=== PATIENT | male | born 1935 | race Caucasian/White ===

== ENCOUNTER → 2016-06-08 | Outpatient (CLI) | payer OTHER ==
[~2016-06-08] MED LIST: ALPR-411 PO; BIO FLEX PO; LISI-461 PO; MRLP17 PO; NAPR1TAB9 PO; PRLSR20 PO
[2016-06-08 09:50] LABS: BASO % 0.5 %; BASO ABS # 0.03 K/uL (0-0.2); COMPLETE YES; EOS % 2.4 %; HEMATOCRIT 43.1 % (42-52); IG% 0.5 %; LYMPH % 23.6 %; LYMPH ABS # 1.47 K/uL (1.2-3.4); MEAN CELL VOLUME 94.5 fL (80-100); MEAN CORPUSCULAR HEMOGLOBIN 32.7 pg (25-34); MEAN CORPUSCULAR HGB CONC 34.6 g/dl (32-36); MEAN PLATELET VOLUME 9.8 fL (7.4-10.4); MONO % 10.6 %; NEUT % 62.4 %; PLATELET COUNT 240 K/uL (130-400); RED BLOOD COUNT 4.56 M/uL (4.7-6.1); WHITE BLOOD COUNT 6.22 K/uL (4.8-10.8)
[2016-06-08 10:03] LABS: ALT/SGPT 16 U/L (12-78); BLOOD UREA NITROGEN 28 mg/dl (7-18); BUN/CREATININE RATIO 25.5 (10-20); CALCIUM 8.9 mg/dl (8.5-10.1); CARBON DIOXIDE 29 mmol/L (21-32); CHLORIDE 101 mmol/L (98-107); CHOLESTEROL 172 mg/dl (0-200); CHOLESTEROL/HDL RATIO 2.5; GLUCOSE 96 mg/dl (70-99); HDL CHOLESTEROL 70 mg/dl; LDL CHOLESTEROL CALCULATED 88 mg/dl; SODIUM 138 mmol/L (136-145); TRIGLYCERIDES 72 mg/dl (0-150); URIC ACID 6.2 mg/dl (2.6-7.2); VERY LOW DENSITY LIPOPROT CALC 14 mg/dl
[2016-06-08 10:09] LABS: ALB/GLOB RATIO 1.3 (0.9-2); ALKALINE PHOSPHATASE 67 U/L (45-117); AST/SGOT 20 U/L (15-37); PHOSPHORUS 2.7 mg/dl (2.5-4.9)
[2016-06-08 10:33] LABS: ESTIMATED AVERAGE GLUCOSE 103 mg/dl; HA1C FLAG Normal (Normal)
[2016-06-09 11:58] LABS: C-REACTIVE PROT HIGHSEN 2.2 MG/L
--- NOTE | 2016-06-14 13:10 | CODING QUERY MEDICAL NECESSITY ---
SUPPORTING DIAGNOSIS NEEDED A supporting diagnosis is required for the test/procedure performed on this patient in order for us to be reimbursed by the patient's insurance. Please provide a supporting diagnosis for the following test/procedure listed below next to the test name along with your signature. *If there is no additional diagnosis for this patient that would support the following test/procedure please document that below next to the test/procedure. Test(s)/Procedure(s) that require a supporting diagnosis: * VITAMIN D 25- HYDROXY DIAGNOSIS: * VITAMIN B-12 LEVEL DIAGNOSIS: * C-REACTIVE PROTEIN DIAGNOSIS: * DOS:06/08/13 Provider Signature: Date: Thank you Frances Gama Health Information Management Once completed, please kindly fax back to [phone] For questions please call [phone]
== END | disposition home or self-care (01) ==
LOC: C.LAB 07:10
PROVIDERS: ATTEND Family Medicine
DX: R73.09 Other abnormal glucose (principal)

== ENCOUNTER → 2016-12-06 | Outpatient (CLI) | payer OTHER ==
[2016-12-06 09:35] LABS: BASO % 0.5 %; BASO ABS # 0.04 K/uL (0-0.2); COMPLETE YES; HEMATOCRIT 43.8 % (42-52); IG% 0.7 %; LYMPH % 16.5 %; LYMPH ABS # 1.24 K/uL (1.2-3.4); MEAN CELL VOLUME 97.3 fL (80-100); MEAN CORPUSCULAR HEMOGLOBIN 31.3 pg (25-34); MEAN CORPUSCULAR HGB CONC 32.2 g/dl (32-36); MEAN PLATELET VOLUME 9.6 fL (7.4-10.4); MONO % 11.6 %; NEUT % 68.7 %; PLATELET COUNT 277 K/uL (130-400); WHITE BLOOD COUNT 7.52 K/uL (4.8-10.8)
[2016-12-06 09:56] LABS: ALKALINE PHOSPHATASE 61 U/L (45-117); ALT/SGPT 14 U/L (12-78); AST/SGOT 15 U/L (15-37); BLOOD UREA NITROGEN 27 mg/dl (7-18); BUN/CREATININE RATIO 27.1 (10-20); CALCIUM 9.1 mg/dl (8.5-10.1); CARBON DIOXIDE 26 mmol/L (21-32); CHLORIDE 101 mmol/L (98-107); CHOLESTEROL 219 mg/dl (0-200); GLUCOSE 97 mg/dl (70-99); POTASSIUM 4.2 mmol/L (3.5-5.1); SODIUM 135 mmol/L (136-145)
[2016-12-06 09:58] LABS: ESTIMATED AVERAGE GLUCOSE 108 mg/dl; HA1C FLAG Normal (Normal)
[2016-12-06 10:02] LABS: ALB/GLOB RATIO 1.3 (0.9-2); CHOLESTEROL/HDL RATIO 2.1; HDL CHOLESTEROL 106 mg/dl; LDL CHOLESTEROL CALCULATED 95 mg/dl; PHOSPHORUS 2.6 mg/dl (2.5-4.9); THYROID STIMULATING HORMONE 0.755 uIu/ml (0.300-4.500); TRIGLYCERIDES 91 mg/dl (0-150); URIC ACID 6.9 mg/dl (2.6-7.2); VERY LOW DENSITY LIPOPROT CALC 18 mg/dl
[2016-12-07 12:32] LABS: C-REACTIVE PROT HIGHSEN 9.6 MG/L
--- NOTE | 2016-12-12 06:42 | CODING QUERY MEDICAL NECESSITY ---
SUPPORTING DIAGNOSIS NEEDED Dr. Feliciano, A supporting diagnosis is required for the test/procedure performed on this patient in order for us to be reimbursed by the patient's insurance. Please provide a supporting diagnosis for the following test/procedure listed below next to the test name along with your signature. *If there is no additional diagnosis for this patient that would support the following test/procedure please document that below next to the test/procedure. Test(s)/Procedure(s) that require a supporting diagnosis: * ([id number]) C-REACTIVE PROTEIN DIAGNOSIS: * [id number] PSA DIAGNOSIS: DATE OF SERVICE: 12/06/16 Provider Signature: Date: Thank you Kirill Wharton Health Information Management Once completed, please kindly fax back to [phone] For questions please call [phone]
== END | disposition home or self-care (01) ==
LOC: C.LAB 07:42
PROVIDERS: ATTEND Family Medicine
DX: R73.09 Other abnormal glucose (principal); E55.9 Vitamin D deficiency, unspecified; D51.9 Vitamin B12 deficiency anemia, unspecified

== ENCOUNTER → 2017-05-18 | Outpatient (CLI) | payer OTHER ==
[2017-05-18 09:35] LABS: BASO % 0.6 %; BASO ABS # 0.03 K/uL (0-0.2); EOS % 1.5 %; EOS ABS # 0.08 K/uL (0-0.5); HEMATOCRIT 44.6 % (42-52); HEMOGLOBIN 15.1 g/dL (14.0-18.0); IG# 0.03 K/uL (0.00-0.02); LYMPH ABS # 1.34 K/uL (1.2-3.4); MEAN CELL VOLUME 93.7 fL (80-100); MEAN CORPUSCULAR HEMOGLOBIN 31.7 pg (25-34); MEAN CORPUSCULAR HGB CONC 33.9 g/dl (32-36); MONO % 10.8 %; MONO ABS # 0.58 K/uL (0.11-0.59); NEUT % 61.5 %; NEUT ABS # 3.31 K/uL (1.4-6.5); PLATELET COUNT 259 K/uL (130-400); RED CELL DISTRIBUTION WIDTH CV 12.5 % (11.5-14.5); RED CELL DISTRIBUTION WIDTH SD 43.6 fL (36.4-46.3); WHITE BLOOD COUNT 5.37 K/uL (4.8-10.8)
[2017-05-18 09:53] LABS: ALBUMIN 4.1 gm/dl (3.4-5.0); ALT/SGPT 22 U/L (12-78); AST/SGOT 26 U/L (15-37); BLOOD UREA NITROGEN 18 mg/dl (7-18); CALCIUM 9.2 mg/dl (8.5-10.1); CARBON DIOXIDE 30 mmol/L (21-32); CHOLESTEROL 177 mg/dl (0-200); CREATININE 1.04 mg/dl (0.60-1.40); GLUCOSE 92 mg/dl (70-99); SODIUM 135 mmol/L (136-145); URIC ACID 5.7 mg/dl (2.6-7.2)
[2017-05-18 10:02] LABS: ALKALINE PHOSPHATASE 69 U/L (45-117); LDL CHOLESTEROL CALCULATED 83 mg/dl; TOTAL PROTEIN 7.1 gm/dl (6.4-8.2); TRANSFERRIN 230 mg/dl (200-360)
[2017-05-18 10:17] LABS: HEMOGLOBIN A1C 5.3 % (4.5-5.6)
== END | disposition home or self-care (01) ==
LOC: C.LAB 07:31
PROVIDERS: ATTEND Family Medicine
DX: E88.81 Metabolic syndrome and other insulin resistance (principal); E55.9 Vitamin D deficiency, unspecified; D51.9 Vitamin B12 deficiency anemia, unspecified; E78.9 Disorder of lipoprotein metabolism, unspecified; R53.83 Other fatigue

== ENCOUNTER 2018-06-07 17:52 | Inpatient (IN) ==
[2018-06-07] MEDS ORDERED: ASPIRIN CHEW 324 MG PO STA (18:17)
[2018-06-07] MEDS ORDERED: ACETAMINOPHEN 500 MG TAB PO STA (18:26)
[2018-06-07] MEDS ORDERED: SODIUM CHLORIDE 0.9% 1000ML 1,000 ML IV SCH (18:30)
[2018-06-07] MEDS ORDERED: SODIUM CHLORIDE 0.9% 500 ML IV SCH (18:30)
--- NOTE | 2018-06-07 18:55 | XRay Report ---
XR chest 1V portable HISTORY: 83 years-old Male CVA sx acute weakness with strokelike symptoms COMPARISON: Thoracic spine radiographs of same day TECHNIQUE: Single portable AP view the chest FINDINGS: Cardiac silhouette is mildly enlarged. Mild prominence about the thoracic aortic arch. Calcified medi astinal lymph nodes with calcified granuloma of the right lung base. No pneumothorax, pleural effusio n or overt pulmonary edema. Minimal left basilar opacities suggest atelectasis. Degenerative changes of the shoulders and spine. IMPRESSION: No acute process. The above report was generated using voice recognition software. It may contain grammatical, syntax o r spelling errors. Electronically signed by: Chip Irizarry M.D. 06/07/2018 6:54 PM
[2018-06-07 19:41] LABS: Basophils # (auto) 0.03 K/uL (0-0.2); Basophils % (auto) 0.4 %; Eosinophils # (auto) 0.07 K/uL (0-0.5); Hematocrit (blood only) 40.8 % (42-52); Hemoglobin 14.1 g/dL (14.0-18.0); Immature Granulocytes # (auto) 0.04 K/uL (0.00-0.02); Immature Granulocytes % (auto) 0.6 %; Lymphocytes # (auto) 1.23 K/uL (1.2-3.4); Mean Corpuscular Hgb Conc 34.6 g/dL (32-36); Mean Corpuscular Volume 95.3 fL (80-100); Mean Platelet Volume 9.9 fL (7.4-10.4); Monocytes # (auto) 0.93 K/uL (0.11-0.59); Monocytes % (auto) 12.8 %; Neutrophils # (auto) 4.94 K/uL (1.4-6.5); Neutrophils % (auto) 68.2 %; Platelet Count 244 K/uL (130-400); RDW Coefficient of Variation 12.4 % (11.5-14.5); Red Blood Count 4.28 M/uL (4.7-6.1); White Blood Count 7.24 K/uL (4.8-10.8)
[2018-06-07 19:52] LABS: Alanine Aminotransferase 14 U/L (12-78); Albumin Level 3.9 gm/dl (3.4-5.0); Aspartate Aminotransferase 19 U/L (15-37); BUN Creatinine Ratio 25.4 (10-20); Blood Urea Nitrogen 36 mg/dl (7-18); Calcium 9.3 mg/dl (8.5-10.1); Carbon Dioxide 30 mmol/L (21-32); Chloride 100 mmol/L (98-107); Est GFR (African American) 52.1; Glucose 113 mg/dl (70-99); Potassium 3.9 mmol/L (3.5-5.1); Sodium 134 mmol/L (136-145)
[2018-06-07 19:56] LABS: Albumin Globulin Ratio 1.4 (0.9-2); Alkaline Phosphatase 58 U/L (45-117); Bilirubin,Total 1.1 mg/dl (0.2-1); Globulin 2.8 gm/dl (2.5-4.0); Total Protein 6.7 gm/dl (6.4-8.2); Troponin I 0.025 ng/ml (0-0.045)
--- NOTE | 2018-06-07 22:00 | History & Physical Report ---
Date of Service June 07, 2018 Assessment & Plan (1) Cerebrovascular accident: 83 y/o M without a significant medical history who is undergoing a workup for ataxia. The pt states that he is having difficulty initiating speech and movement. He denies a significant tremor or noticeable unilateral weakness. He also states that he is occasionally lightheaded. He suffered a fall into a snow bank approximately one week ago after becoming lightheaded walking toward his house. The pt was placed on Sinemet for a presumed diagnosis of Parkinson's initially but he had an adverse reaction to the medication, describing involuntary movements and GI upset. He was sent for an MRI as part of a n eurological workup. This demonstrated an acute lacunar infarct in the basal ganglia. The pt was directed to the ER for admission. Initial exam demonstrated subtle L sided weakness which the pt did not discern as a symptom. Ataxia is apparent. The pt was hypotensive on arrival to the ER with an SBP in the low 90s. He responded to IVF. He had c/o a headache, however, this resolved after he received ASA. Initial labs are notable for mild YANN. CVA and ataxia - hypotension on arrival to the ER This is an unusual case considering a diagnosis of an acute CVA and ataxia which preceded this diagnosis for at least a few weeks. The pt was hypotensive on arrival which is also unexpected in the setting of an acute CVA. We could possibly tie the two diagnoses together by considering a degree of underlying vascular disease and hypotension being a precipitating factor in causing the CVA. It would be an unfortunate coincidence that the CVA has affected the basal ganglia. The hypotension and ataxia may support an underlying diagnosis of MSA or idiopathic Parkinson's. Considering an adverse response to Sinemet, MSA becomes more likely. A CVA in itself would not explain possible automomic issues, although there is the possibility that the CVA is not as acute as it may appear. In the immediate term, we have ordered an MRA of the head/neck, provided the pt with ASA, a statin and IVF. He is admitted with a CVA protocol and will be evaluated by neurology. He will likely need placement at least in short-term rehab. PT/OT eval requested. Imaging may not be helpful in the diagnosis of MSA. Full code - SCDs due to significant fall risk Total time for this admit including review of labs, meds, imaging, records - discussion with pt, family and ER attending - 48 min Present on Admission?: Yes History of Present Illness Chief Complaint: Ataxia Primary Care Provider: Nithin Feliciano 83 y/o M without a significant medical history who is undergoing a workup for ataxia. The pt states that he is having difficulty initiating speech and movement. He denies a significant tremor or noticeable unilateral weakness. He also states that he is occasionally lightheaded. He suffered a fall into a snow bank approximately one week ago after becoming lightheaded walking toward his house. The pt was placed on Sinemet for a presumed diagnosis of Parkinson's initially but he had an adverse reaction to the medication, describing involuntary movements and GI upset. He was sent for an MRI as part of a neurological workup. This demonstrated an acute lacunar infarct in the basal ganglia. The pt was directed to the ER for admission. Initial exam demonstrated subtle L sided weakness which the pt did not discern as a symptom. Ataxia is apparent. The pt was hypotensive on arrival to the ER with an SBP in the low 90s. He responded to IVF. He had c/o a headache, however, this resolved after he received ASA. Initial labs are notable for mild YANN. PMH: Denies a significant medical history Social: He smoked cigarettes in the 1970s. He has three bourbon-based beverages per evening. He lives alone and is fully independent although he is having difficulty since the onset of his symptoms. Family: Mother at age 70 due to an [place] Father in an MVA Allergies Allergy/AdvReac Type Severity Reaction Status Date / Time codeine AdvReac NAUSEA Verified 06/07/18 15:22 Home Medications Home Medications Medication Instructions Recorded Confirmed Type ergocalciferol (vitamin D2) 50,000 units PO WK 06/07/18 06/07/18 History [Vitamin D2] omeprazole 20 mg PO HS 06/07/18 06/07/18 History vitamins A,C,B-[id number]-fyvkjp 1 tab PO WK 06/07/18 06/07/18 History [PreserVision AREDS] Past Med/Surg History Medical History Anxiety Constipation GERD (gastroesophageal reflux disease) Hypertension Social History Feels Safe at Home: Yes Smoking Status: Never smoker Review of Systems Gen: Denies fevers, night sweats, rigors, fatigue, malaise, weight loss/gain ENT: Denies congestion, throat pain, hearing loss Eyes: Denies acute visual changes CV: Denies CP, palpitations Pulmonary: Denies SOB, cough, wheezing GI: Denies N/V, diarrhea, constipation Neuro: Mild OROZCO resolved - progressive difficulty initiating speech and movement Musculoskeletal: Denies joint pain, inflammation Endocrine: Denies polydipsia, polyuria Skin: Denies acute rashes or ulcers Physical Exam Vital Signs (Past 24 Hours): Last Vital Signs Temp 36.6 C 06/07/18 18:00 Pulse 82 06/07/18 18:00 Resp 20 06/07/18 18:00 BP 90/56 L 06/07/18 18:00 Pulse Ox 94 06/07/18 18:00 Physical Exam: General: Pleasant, elderly male with readily apparent ataxia, AAO x 3, no distress ENT: No erythema or exudates, no thrush Eyes: BRITT, EOMI Head and neck: Normocephalic, atraumatic, No JVD, neck is supple. 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 The weakness is also apparent in the LLE. Coordination shows subtle impairment on the L. Sensation is intact BL. Musculoskeletal: No joint inflammation, muscle tenderness, FROM Skin: No acute rashes or ulcers Extremities: No clubbing, cyanosis, edema Results & Data Diagnostic Findings MRI brain: 1. Acute lacunar infarct within the right basal ganglia. 2. The distal left vertebral artery appears occluded. This is technically age- indeterminate but likely chronic. No associated posterior circulation infarcts to suggest an acute occlusion. 3. Moderate atrophy which has slightly progressed. EKG: Sinus, PVCs, L axis, RBBB (1) Cerebrovascular accident CVA mechanism: unspecified Qualified Code(s): I63.9 - Cerebral infarction, unspecified
[2018-06-07] MEDS ORDERED: ALUMINUM/MAGNESIUM SUSP 30 ML UDC PO PRN (22:03)
[2018-06-07] MEDS ORDERED: ONDANSETRON INJ 2 MG/ML 2 ML VIAL IV PRN (22:03)
[2018-06-07] MEDS ORDERED: MAGNESIUM HYDROXIDE SUSP 30 ML UDC PO PRN (22:03)
[2018-06-07] MEDS ORDERED: POLYETHYLENE (MIRALAX) 17 GM PACK PO PRN (22:03)
[2018-06-07] MEDS ORDERED: PHARMACIST DISCHARGE MED REC CONSULT PRN (22:03)
[2018-06-07] MEDS ORDERED: ATIVAN 1MG HOMEPACK PO ONE (22:10)
[2018-06-08] MEDS ORDERED: D5NSS + 20MEQ KCL 20 MEQ/1,000 ML BAG IV SCH (01:00)
--- NOTE | 2018-06-08 02:41 | Emergency Department Note ---
Entered by Pavan Jacobo acting as a scribe for History of Present Illness General Chief complaint: Stroke/CVA Symptoms Stated complaint: stroke w/ parkinson's symptoms Source: patient and family History of Present Illness Provider complaint: Difficulty moving extremities Onset (ago): week(s) 3 Location: upper extremity, lower extremity, left and right Maximum Pain Intensity: 0 Exacerbated By: + other (dizziness is worsened when getting up) Associated symptoms: + denies other symptoms (ifficulty with speech, weakness specific to one extremity, dark stools/blood, fever, and diarrhea) and + other (lightheaded/dizziness, Parkinson's-like symptoms,intense fatigue, pain in his lower extremities, constipation, blurry vision) Treatments prior to arrival: none The patient is an 83 year old male who presents to the Emergency Room with complaints of difficulty moving his extremities beginning approximately 3 years ago. The patient presents today coming from his doctor who diagnosed him with an acute stroke. Per the patient's family, who was bedside, the patient fell 3 weeks ago was down for about 30 min before EMS got to him. Since then, the patient has felt lightheaded/dizzy and states that he has Parkinson's-like symptoms. The family adds that the patient was seen at his doctor several days ago for these symptoms and prescribed medication for Parkinson's. The patient states that he feels weak and very uncomfortable all the time stating that he cannot get his body to move and that his "motor will not start". The patient reports that these symptoms have all been new since the fall stating that he was "good before the fall". The patient adds that his dizziness is worsened upon getting up. The patient also complains of intense fatigue, pain in his lower extremities, constipation, blurry vision and the patient's family adds that the patient's BP was low (80/55) when it was taken prior to arrival. The patient de nies difficulty with speech, weakness specific to one extremity, dark stools/blood, fever, and diarrhea. The patient notes that he takes Aleve and Excedrin daily. Home Medications Home Medications Medication Instructions Recorded Confirmed Type ergocalciferol (vitamin D2) 50,000 units PO WK 06/07/18 06/07/18 History [Vitamin D2] omeprazole 20 mg PO HS 06/07/18 06/07/18 History vitamins A,C,U-oonk-bbiedn 1 tab PO WK 06/07/18 06/07/18 History [PreserVision AREDS] Allergies Allergy/AdvReac Type Severity Reaction Status Date / Time codeine AdvReac NAUSEA Verified 06/07/18 15:22 Past Med/Surg History Medical History Anxiety Constipation GERD (gastroesophageal reflux disease) Hypertension Social History Communication Ability: Effective Beliefs That Will Affect Care: None Current Living Situation: Alone Feels Safe at Home: Yes Safety Concerns: Feels Safe At This Time Smoking Status: Never smoker Hx Alcohol Use: No Hx Substance Use: No Review of Systems See HPI for pertinent positives & negatives. and A total of 10 systems reviewed and were otherwise negative Physical Exam Vital Signs Vital Signs - 24 hr 06/09/18 03:35 06/09/18 06:49 06/09/18 08:00 Temperature 36.8 C 37.0 C Temperature Source Oral Oral Pulse Rate - Sitting Pulse Rate 95 H Pulse Rate [Bilateral] 69 70 Pulse Rate [Left Finger] Respiratory Rate 20 18 Respiratory Depth Normal Blood Pressure - Sitting Blood Pressure [Left Arm] 173/79 H 184/87 H Blood Pressure Mean [Left Arm] 110 119 Blood Pressure Position [Left Arm] Lying Lying Pulse Oximetry 94 94 Oxygen Delivery Method Room Air Room Air 06/09/18 11:40 06/09/18 11:57 06/09/18 15:49 Temperature 36.4 C L 37.2 C Temperature Source Oral Oral Pulse Rate - Sitting 75 Pulse Rate Pulse Rate [Bilateral] Pulse Rate [Left Finger] 79 90 Respiratory Rate 19 20 Respiratory Depth Normal Blood Pressure - Sitting 124/72 Blood Pressure [Left Arm] 127/72 158/91 H Blood Pressure Mean [Left Arm] 90 113 Blood Pressure Position [Left Arm] Sitting Lying Pulse Oximetry 97 97 93 Oxygen Delivery Method Room Air Room Air 06/09/18 16:13 06/09/18 20:25 06/10/18 00:00 Temperature 36.7 C 37.0 C Temperature Source Oral Oral Pulse Rate - Sitting Pulse Rate 83 Pulse Rate [Bilateral] Pulse Rate [Left Finger] 95 H 90 Respiratory Rate 17 18 Respiratory Depth Normal Blood Pressure - Sitting Blood Pressure [Left Arm] 165/61 H 152/93 H Blood Pressure Mean [Left Arm] 95 112 Blood Pressure Position [Left Arm] Lying Lying Pulse Oximetry 94 95 Oxygen Delivery Method Room Air Room Air Vital signs reviewed. General: Chronically ill-appearing elderly male, in no significant distress. HEENT: No scleral icterus, PERRLA, neck supple. Atraumatic. Cardiovascular: Regular rate and rhythm, no extra sounds. Pulmonary: Clear to auscultation bilaterally, normal work of breathing. Abdomen: Soft, nontender, nondistended, positive bowel sounds. Musculoskeletal: Atraumatic, no peripheral edema. Neurologic: Patient awake alert and oriented x 3, full strength in all 4 extremities. Cranial nerves 2 through 12 grossly intact. Stiff upper and lower extremity, equal movement of all 4 extremities, follows commands, but is unable to extend the left shoulder to injury Skin: Warm, dry, no rash Course 1807: Past medical records reviewed. The patient was evaluated in room C3, and a complete history and physical examination were performed. 2028: I reviewed the patient's case with Dr. Kearns-Hospitalist He will evaluate the patient for further management. Administered Medications Acetaminophen (Tylenol) 650 mg PO Q4H PRN PRN Reason: Pain or Fever Stop: 07/07/18 22:02 Last Admin: 06/09/18 11:58 Dose: 650 mg Documented by: [id number] Aspirin (Ecotrin Ectab) 81 mg PO [facility] Stop: 07/09/18 08:59 Last Admin: 06/09/18 09:02 Dose: 81 mg Documented by: [id number] Atorvastatin Calcium (Lipitor) 20 mg PO [facility] Stop: 07/08/18 08:59 Last Admin: 06/09/18 09:02 Dose: 20 mg Documented by: [id number] Admin: 06/08/18 10:57 Dose: 20 mg Documented by: [id number] Gadobutrol (Gadavist 30ml) 7 ml IV ONCE PRN PRN Reason: Interaction Checking Stop: 06/12/18 10:05 Last Admin: 06/08/18 10:07 Dose: 7 ml Documented by: [id number] Pantoprazole Sodium (Protonix) 40 mg PO [facility] Stop: 07/08/18 20:59 Last Admin: 06/09/18 20:23 Dose: 40 mg Documented by: [id number] Admin: 06/08/18 22:10 Dose: 40 mg Documented by: [id number] Polyethylene Glycol (Miralax Powder Packet) 17 gm PO DAILY [facility] Stop: 07/09/18 08:59 Last Admin: 06/09/18 09:03 Dose: 17 gm Documented by: [id number] Senna/Docusate Sodium (Senokot S) 1 tab PO QAM [facility] Stop: 07/09/18 08:59 Last Admin: 06/09/18 09:03 Dose: 1 tab Documented by: [id number] Discontinued Medications Acetaminophen (Tylenol) 1,000 mg PO NOW STA Stop: 06/07/18 18:27 Last Admin: 06/07/18 19:40 Dose: Not Given Documented by: [id number] Aspirin (Aspirin) 324 mg PO NOW STA Stop: 06/07/18 18:18 Last Admin: 06/07/18 19:40 Dose: 324 mg Documented by: [id number] Aspirin (Ecotrin) 325 mg PO QAM [facility] Stop: 07/08/18 08:59 Last Admin: 06/08/18 10:57 Dose: 325 mg Documented by: [id number] Sodium Chloride (Nss 1000ml) 1,000 mls @ 125 mls/hr IV .Q8H [facility] Stop: 07/07/18 18:29 Last Infusion: 06/08/18 04:40 Dose: 0 mls/hr Documented by: [id number] Infusion: 06/08/18 02:05 Dose: 0 mls/hr Documented by: [id number] Admin: 06/07/18 20:21 Dose: 125 mls/hr Documented by: [id number] Sodium Chloride (Nss) 500 mls @ 999 mls/hr IV .Q31M [facility] Stop: 06/07/18 19:00 Last Infusion: 06/07/18 20:20 Dose: 0 mls/hr Documented by: [id number] Admin: 06/07/18 19:42 Dose: 999 mls/hr Documented by: [id number] Potassium Chloride/Dextrose/Sod Cl (D5nss + 20meq Kcl) 20 meq in 1,000 mls @ 100 mls/hr IV .Q10H [facility] Stop: 06/08/18 10:59 Last Infusion: 06/08/18 13:05 Dose: 0 mls/hr Documented by: [id number] Admin: 06/08/18 02:12 Dose: 100 mls/hr Documented by: [id number] Lorazepam (Ativan 1mg Home Pack) 1 homepack PO UD ONE Stop: 06/07/18 22:11 Last Admin: 06/07/18 22:44 Dose: Not Given Documented by: [id number] Medical Decision Making Differential Diagnosis Differential diagnosis: Etiologies such as metabolic, infection, hypo/hyperglycemia, electrolyte abnormalities, cardiac sources, intracerebral event, toxicologic, neurologic, as well as others were entertained. Medical Records Attestation: I reviewed the patient's medical records. Home Medications Current Medication List: was personally reviewed by me Laboratory Data Attestation: I reviewed the patient's lab results. Result diagrams: 06/09/18 06:24 06/09/18 06:24 Lab Results 06/07/18 06/07/18 06/07/18 Range/Units 19:15 19:15 19:15 WBC 7.24 (4.8-10.8) K/uL RBC 4.28 L (4.7-6.1) M/uL Hgb 14.1 (14.0-18.0) g/dL Hct 40.8 L (42-52) % MCV 95.3 (80-100) fL MCH 32.9 (25-34) pg MCHC 34.6 (32-36) g/dL RDW Std Deviation 43.0 (36.4-46.3) fL RDW Coeff of Jennifer 12.4 (11.5-14.5) % Plt Count 244 (130-400) K/uL MPV 9.9 (7.4-10.4) fL Immature Gran % (Auto) 0.6 % Neut % (Auto) 68.2 % Lymph % (Auto) 17.0 % Haywood % (Auto) 12.8 % Eos % (Auto) 1.0 % Baso % (Auto) 0.4 % Immature Gran # (Auto) 0.04 H (0.00-0.02) K/uL Neut # (Auto) 4.94 (1.4-6.5) K/uL Lymph # (Auto) 1.23 (1.2-3.4) K/uL Haywood # (Auto) 0.93 H (0.11-0.59) K/uL Eos # (Auto) 0.07 (0-0.5) K/uL Baso # (Auto) 0.03 (0-0.2) K/uL Sodium 134 L (136-145) mmol/L Potassium 3.9 (3.5-5.1) mmol/L Chloride 100 (98-107) mmol/L Carbon Dioxide 30 (21-32) mmol/L Anion Gap 4.0 (3-11) BUN 36 H (7-18) mg/dl Creatinine 1.43 H (0.6-1.4) mg/dl Est Cr Clr Drug Dosing Not Reportable Est GFR ( Amer) 52.1 Est GFR (Non-Af Amer) 45.0 BUN/Creatinine Ratio 25.4 H (10-20) Glucose 113 H (70-99) mg/dl Estimat Average Glucose 105 mg/dl Hemoglobin A1c 5.3 (4.5-5.6) % Calcium 9.3 (8.5-10.1) mg/dl Total Bilirubin 1.1 H (0.2-1) mg/dl AST 19 (15-37) U/L ALT 14 (12-78) U/L Alkaline Phosphatase 58 (45-117) U/L Troponin I 0.025 (0-0.045) ng/ml Total Protein 6.7 (6.4-8.2) gm/dl Albumin 3.9 (3.4-5.0) gm/dl Globulin 2.8 (2.5-4.0) gm/dl Albumin/Globulin Ratio 1.4 (0.9-2) Triglycerides (0-150) mg/dl Cholesterol (0-200) mg/dl LDL Cholesterol, Calc mg/dl VLDL Cholesterol, Calc mg/dl HDL Cholesterol mg/dl Cholesterol/HDL Ratio Vitamin B12 (211-911) pg/ml Urine Color Urine Appearance (Clear) Urine pH (4.5-7.5) Ur Specific Garfield (1.000-1.030) Urine Protein (Negative) Urine Glucose (UA) (Negative) Urine Ketones (Negative) Urine Blood (Negative) Urine Nitrite (Negative) Urine Bilirubin (Negative) Urine Urobilinogen (Negative) Ur Leukocyte Esterase (Negative) 06/08/18 06/08/18 06/08/18 Range/Units 04:57 05:59 05:59 WBC 6.28 (4.8-10.8) K/uL RBC 3.88 L (4.7-6.1) M/uL Hgb 12.7 L (14.0-18.0) g/dL Hct 37.1 L (42-52) % MCV 95.6 (80-100) fL MCH 32.7 (25-34) pg MCHC 34.2 (32-36) g/dL RDW Std Deviation 43.1 (36.4-46.3) fL RDW Coeff of Jennifer 12.5 (11.5-14.5) % Plt Count 205 (130-400) K/uL MPV 9.8 (7.4-10.4) fL Immature Gran % (Auto) 0.5 % Neut % (Auto) 68.5 % Lymph % (Auto) 17.5 % Haywood % (Auto) 11.8 % Eos % (Auto) 1.4 % Baso % (Auto) 0.3 % Immature Gran # (Auto) 0.03 H (0.00-0.02) K/uL Neut # (Auto) 4.30 (1.4-6.5) K/uL Lymph # (Auto) 1.10 L (1.2-3.4) K/uL Haywood # (Auto) 0.74 H (0.11-0.59) K/uL Eos # (Auto) 0.09 (0-0.5) K/uL Baso # (Auto) 0.02 (0-0.2) K/uL Sodium 138 (136-145) mmol/L Potassium 3.8 (3.5-5.1) mmol/L Chloride 105 (98-107) mmol/L Carbon Dioxide 30 (21-32) mmol/L Anion Gap 3.0 (3-11) BUN 33 H (7-18) mg/dl Creatinine 1.13 D (0.6-1.4) mg/dl Est Cr Clr Drug Dosing 49.3 Est GFR ( Amer) 69.3 Est GFR (Non-Af Amer) 59.8 BUN/Creatinine Ratio 29.1 H (10-20) Glucose 122 H (70-99) mg/dl Estimat Average Glucose mg/dl Hemoglobin A1c (4.5-5.6) % Calcium 8.7 (8.5-10.1) mg/dl Total Bilirubin (0.2-1) mg/dl AST (15-37) U/L ALT (12-78) U/L Alkaline Phosphatase (45-117) U/L Troponin I (0-0.045) ng/ml Total Protein (6.4-8.2) gm/dl Albumin (3.4-5.0) gm/dl Globulin (2.5-4.0) gm/dl Albumin/Globulin Ratio (0.9-2) Triglycerides 69 (0-150) mg/dl Cholesterol 140 (0-200) mg/dl LDL Cholesterol, Calc 56 mg/dl VLDL Cholesterol, Calc 14 mg/dl HDL Cholesterol 70 mg/dl Cholesterol/HDL Ratio 2 Vitamin B12 (211-911) pg/ml Urine Color Yellow Urine Appearance Clear (Clear) Urine pH 6.0 (4.5-7.5) Ur Specific Garfield 1.015 (1.000-1.030) Urine Protein Negative (Negative) Urine Glucose (UA) Negative (Negative) Urine Ketones Trace H (Negative) Urine Blood Negative (Negative) Urine Nitrite Negative (Negative) Urine Bilirubin Negative (Negative) Urine Urobilinogen Negative (Negative) Ur Leukocyte Esterase Negative (Negative) 06/09/18 06/09/18 06/09/18 Range/Units 06:24 06:24 06:24 WBC 7.20 (4.8-10.8) K/uL RBC 3.94 L (4.7-6.1) M/uL Hgb 13.1 L (14.0-18.0) g/dL Hct 37.5 L (42-52) % MCV 95.2 (80-100) fL MCH 33.2 (25-34) pg MCHC 34.9 (32-36) g/dL RDW Std Deviation 42.4 (36.4-46.3) fL RDW Coeff of Jennifer 12.1 (11.5-14.5) % Plt Count 205 (130-400) K/uL MPV 9.6 (7.4-10.4) fL Immature Gran % (Auto) 0.4 % Neut % (Auto) 75.9 % Lymph % (Auto) 13.2 % Haywood % (Auto) 8.9 % Eos % (Auto) 1.3 % Baso % (Auto) 0.3 % Immature Gran # (Auto) 0.03 H (0.00-0.02) K/uL Neut # (Auto) 5.47 (1.4-6.5) K/uL Lymph # (Auto) 0.95 L (1.2-3.4) K/uL Haywood # (Auto) 0.64 H (0.11-0.59) K/uL Eos # (Auto) 0.09 (0-0.5) K/uL Baso # (Auto) 0.02 (0-0.2) K/uL Sodium 138 (136-145) mmol/L Potassium 3.6 (3.5-5.1) mmol/L Chloride 106 (98-107) mmol/L Carbon Dioxide 26 (21-32) mmol/L Anion Gap 6.0 (3-11) BUN 26 H (7-18) mg/dl Creatinine 0.92 (0.6-1.4) mg/dl Est Cr Clr Drug Dosing 60.2 Est GFR ( Amer) 88.8 Est GFR (Non-Af Amer) 76.6 BUN/Creatinine Ratio 28.0 H (10-20) Glucose 104 H (70-99) mg/dl Estimat Average Glucose mg/dl Hemoglobin A1c (4.5-5.6) % Calcium 8.7 (8.5-10.1) mg/dl Total Bilirubin (0.2-1) mg/dl AST (15-37) U/L ALT (12-78) U/L Alkaline Phosphatase (45-117) U/L Troponin I (0-0.045) ng/ml Total Protein (6.4-8.2) gm/dl Albumin (3.4-5.0) gm/dl Globulin (2.5-4.0) gm/dl Albumin/Globulin Ratio (0.9-2) Triglycerides (0-150) mg/dl Cholesterol (0-200) mg/dl LDL Cholesterol, Calc mg/dl VLDL Cholesterol, Calc mg/dl HDL Cholesterol mg/dl Cholesterol/HDL Ratio Vitamin B12 1822 H (211-911) pg/ml Urine Color Urine Appearance (Clear) Urine pH (4.5-7.5) Ur Specific Garfield (1.000-1.030) Urine Protein (Negative) Urine Glucose (UA) (Negative) Urine Ketones (Negative) Urine Blood (Negative) Urine Nitrite (Negative) Urine Bilirubin (Negative) Urine Urobilinogen (Negative) Ur Leukocyte Esterase (Negative) Imaging Data Radiologist's Impression: Radiology results as stated below per my review and the radiologist's interpretation: XR chest 1V portable HISTORY: 83 years-old Male CVA sx acute weakness with strokelike symptoms COMPARISON: Thoracic spine radiographs of same day TECHNIQUE: Single portable AP view the chest FINDINGS: Cardiac silhouette is mildly enlarged. Mild prominence about the thoracic aortic arch. Calcified mediastinal lymph nodes with calcified granuloma of the right lung base. No pneumothorax, pleural effusion or overt pulmonary edema. Minimal left basilar opacities suggest atelectasis. Degenerative changes of the shoulders and spine. IMPRESSION: No acute process. The above report was generated using voice recognition software. It may contain grammatical, syntax or spelling errors. Electronically signed by: Chip Irizarry M.D. 06/07/2018 6:54 PM ECG Data Attestation: I personally reviewed and interpreted this ECG as follows: Indication: weakness Rate (beats per minute): 81 Rhythm: normal sinus Findings: + other (remature supraventricular complexes, repolarization abnormality), + RBBB and + left axis deviation Blood Pressure Blood Pressure Findings: Low blood pressure Blood Pressure Disposition: further management by hospitalist MDM Narrative This patient was evaluated and appeared to be in no significant distress. IV access was obtained and laboratory work was drawn. Physical examination reveals some generalized stiffness however there is no focal malady. CT scan of the head was performed as an outpatient and is concerning for an acute lacunar infarct. There is no evidence of intracranial hemorrhage. Laboratory work is fairly reassuring. EKG reveals normal sinus rhythm with right bundle branch block. Urinalysis is negative. Patient was given aspirin p.o. He was given Tylenol for pain. Case was discussed with the hospitalist service to evaluate the patient for further management. Patient and family are aware of the plan and agree. Impression & Plan Cerebrovascular accident Discharge Plan Visit Data *Final* Discharge Date/Time: 06/07/18 23:27 Chief Complaint: Stroke/CVA Symptoms Stated Complaint: stroke w/ parkinson's symptoms ED Provider: Catrachita Otero Discharge Problem: Cerebrovascular accident Patient Disposition: Admitted As Inpatient Discharge Instructions Interventions: ED Discharge Assessment Last Done: 06/07/18 23:27 Discharge Problem: Cerebrovascular accident Qualifiers: CVA mechanism: unspecified Qualified Code(s): I63.9 - Cerebral infarction, unspecified The scribe's documentation has been prepared under my direction and personally reviewed by me in its entirety. I confirm that the note above accurately reflects all work, treatment, procedures, and medical decision making performed by me.
[2018-06-08 06:33] LABS: Estimated Average Glucose 105 mg/dl; Hemoglobin A1C 5.3 % (4.5-5.6)
[2018-06-08 06:36] LABS: Appearance Urine Clear (Clear); Bilirubin Urine Negative (Negative); Blood Urine Negative (Negative); Color Urine Yellow; Glucose Urine UA Negative (Negative); Ketones Urine Trace (Negative); Leukocyte Esterase Urine Negative (Negative); Nitrite Urine Negative (Negative); Protein Urine Negative (Negative); Specific Gravity Urine 1.015 (1.000-1.030); Urobilinogen Urine Negative (Negative)
[2018-06-08 06:39] LABS: Basophils # (auto) 0.02 K/uL (0-0.2); Basophils % (auto) 0.3 %; Eosinophils # (auto) 0.09 K/uL (0-0.5); Eosinophils % (auto) 1.4 %; Hematocrit (blood only) 37.1 % (42-52); Hemoglobin 12.7 g/dL (14.0-18.0); Immature Granulocytes # (auto) 0.03 K/uL (0.00-0.02); Immature Granulocytes % (auto) 0.5 %; Lymphocytes % (auto) 17.5 %; Mean Corpuscular Hgb Conc 34.2 g/dL (32-36); Mean Corpuscular Volume 95.6 fL (80-100); Mean Platelet Volume 9.8 fL (7.4-10.4); Monocytes # (auto) 0.74 K/uL (0.11-0.59); Monocytes % (auto) 11.8 %; Neutrophils % (auto) 68.5 %; Platelet Count 205 K/uL (130-400); RDW Coefficient of Variation 12.5 % (11.5-14.5); RDW Standard Deviation 43.1 fL (36.4-46.3); Red Blood Count 3.88 M/uL (4.7-6.1); White Blood Count 6.28 K/uL (4.8-10.8)
[2018-06-08 07:02] LABS: BUN Creatinine Ratio 29.1 (10-20); Calcium 8.7 mg/dl (8.5-10.1); Creatinine Clr Calc Pharmacy 49.3 ml/min; Est GFR (African American) 69.3; Est GFR (Non-African American) 59.8; Potassium 3.8 mmol/L (3.5-5.1)
[2018-06-08] MEDS ORDERED: ASPIRIN 325 MG ECTAB PO SCH (09:00)
[2018-06-08] MEDS ORDERED: GADOBUTROL 30ML VIAL IV PRN (10:06)
--- NOTE | 2018-06-08 10:30 | Neurology Consultation ---
Date of Consultation June 08, 2018 Assessment & Plan (1) Cerebrovascular accident: Acute lacunar infarct within the right basal ganglia resulting in a very mild left michael paresis. Etiology probably small vessel ischemic disease. Agree with MRA of the head and neck as ordered. Agree with aspirin although with typically recommend 81 milligrams per day. Agree with atorvastatin although patient's lipid panel is within normal limits. Would also typically recommend a transthoracic echocardiogram with bubble study. Consultations with PT/OT/speech therapy. (2) Parkinsons disease: Probable Parkinson's disease. This issue seems to be more of a subacute to chronic progressive problem for this patient. He is bradykinetic and has had some problems with postural instability as well as a fall about 3 weeks ago. He reports intermittent tremor as well that responded favorably to Sinemet. However, Sinemet resulted in stomach cramps and was discontinued. I would hold on additional treatment trials for Parkinson's at this point in time. I may consider a trial of extended-release Sinemet as an outpatient which may be better tolerated. History of Present Illness Reason for Consultation: Stroke and parkinsonism Requesting Physician: Dr. Kearns Attending Physician: Tito Morley, History of Present Illness The patient is an 83-year-old male who complains of fairly persistent lightheaded this, dizziness, and general weakness which has been present for the past few months. He had a fall about 3 weeks ago without associated loss of consciousness. He also complains of a mild intermittent tremor. His primary c are physician has been suspecting Parkinson's disease and recommended a trial of Sinemet. The patient indicates this medication was helpful in reducing his tremor although it resulted in some upset stomach. He discontinue the medication after a few weeks. His dizziness tends to be worse with standing and walking. He indicates that his weakness is fairly generalized although he has noticed a bit more difficulty with the left arm and leg recently. In addition to the Sinemet trial the patient's primary care physician also suggested a brain MRI which was completed yesterday. 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 There is also generalized atrophy. Images and report reviewed. Given the presence of the acute infarct on this MRI the patient was directly admitted to the hospital for further evaluation and management. Allergies Allergy/AdvReac Type Severity Reaction Status Date / Time codeine AdvReac NAUSEA Verified 06/07/18 15:22 Home Medications Home Medications Medication Instructions Recorded Confirmed Type ergocalciferol (vitamin D2) 50,000 units PO WK 06/07/18 06/07/18 History [Vitamin D2] omeprazole 20 mg PO HS 06/07/18 06/07/18 History vitamins A,C,Z-pwmb-qtxrrd 1 tab PO WK 06/07/18 06/07/18 History [PreserVision AREDS] Patient History Medical History Anxiety Constipation GERD (gastroesophageal reflux disease) Hypertension Social History Communication Ability: Effective Beliefs That Will Affect Care: None Current Living Situation: Alone Feels Safe at Home: Yes Safety Concerns: Feels Safe At This Time Smoking Status: Never smoker Hx Alcohol Use: No Hx Substance Use: No Review of Systems Constitutional: + fatigue; no fever and no chills Eyes: no blind spots and no diplopia Ear, Nose, Mouth, Throat: no tinnitus and no hearing loss Respiratory: no cough and no dyspnea Cardiovascular: no chest pain and no palpitations Gastrointestinal: no nausea and no vomiting Genitourinary (Male): no urinary incontinence Musculoskeletal: no myalgia Integumentary: no rash and no lesions Neurologic: as per Subjective / HPI Psychiatric: no anxiety, no confusion and no hallucinations Hematologic / Lymphatic: no easy bleeding and no easy bruising Physical Exam Vital Signs (Past 24 Hours): Last Vital Signs Temp 36.8 C 06/08/18 07:06 Pulse 63 06/08/18 07:06 Resp 18 06/08/18 07:06 BP 153/70 H 06/08/18 07:06 Pulse Ox 95 06/08/18 07:06 Physical Exam: The patient is a well-developed elderly male. He is alert and fully oriented. Recent remote memory intact. Attention and concentration normal. Patient exhibits a normal spontaneous speech pattern although his speech is somewhat hypophonic and slowed. Patient exhibits an age-appropriate fund of knowledge a normal vocabulary. Visual brown full to confrontation. Visual acuity normal. Pupils equal round react to light and accommodation. Eye movements normal. Facial sensation intact. There is no facial droop or weakness. Hearing intact. Palate elevates to midline. Shoulder shrug intact. Tongue protrudes to midline. Sensation intact to all modalities in all 4 limbs. Deep tendon reflexes are intact and symmetrical. There is mild dysmetria with finger to nose and heel to muhammad on the left. No dysmetria with [id number] or [id number] on the right. Ophthalmoscopic examination reveals normal- appearing optic discs and posterior segments. No papilledema or hemorrhages. Carotid pulses normal bilaterally, no bruits to auscultation. Gait and station not tested due to safety concerns. Patient exhibits fairly normal strength for the arms and legs bilaterally although there is a slight pronator drift for the left upper limb. Muscle tone normal throughout. No rigidity. No atrophy. No abnormal movements observed at this time. No resting tremor. Patient is modestly bradykinetic. Results & Data Laboratory Results Labs completed this morning reviewed. WBC 3.88, hemoglobin 12.7, platelets 205, sodium 138, potassium 3.8, BUN 33, creatinine 1.13, cholesterol 140, triglycerides 69, LDL 56, VLDL 14, HDL 70 Diagnostic Findings Brain MRI results as described in the history of present illness. Images and report reviewed. (1) Cerebrovascular accident CVA mechanism: unspecified Qualified Code(s): I63.9 - Cerebral infarction, unspecified
--- NOTE | 2018-06-08 10:35 | Magnetic Resonance Report ---
MRA OF THE NECK WITH AND WITHOUT CONTRAST CLINICAL HISTORY: CVA COMPARISON STUDY: MRI of the brain June 07, 2018. TECHNIQUE: Unenhanced and contrast-enhanced MRA of the neck was performed. Intravenous injection of 7 cc of Gadavist was uneventful. FINDINGS: The bilateral common carotid and internal carotid arteries are patent. There is no signific ant stenosis within these vessels. The right vertebral artery is dominant and patent. However, origin of this vessel not imaged on this exam. The left vertebral artery is diminutive. Moderate to severe multifocal stenoses are identified within the left vertebral artery, most evident within the distal c ervical and intracranial portions. IMPRESSION: 1. No stenosis within the bilateral cervical internal carotid or common carotid arteries. 2. Dominant, patent right vertebral artery. However, origin of this vessel not imaged on this exam. 3. Diminutive left vertebral artery with moderate to severe multifocal stenoses. Electronically signed by: Merrill Payne M.D. 06/08/2018 10:34 AM
--- NOTE | 2018-06-08 10:38 | Magnetic Resonance Report ---
MRA OF THE INTRACRANIAL CIRCULATION WITHOUT CONTRAST CLINICAL HISTORY: CVA COMPARISON STUDY: MRA of the head December 27, 2010. TECHNIQUE: Utilizing a 1.5 Kaity magnet and 3-D [id number] technique, unenhanced MRA of the intra cranial circulation was obtained. FINDINGS: This exam is mildly compromised by artifact. No intracranial aneurysm or abrupt vessel cut off is identified. Irregularity of the left posterior cerebral artery is likely artifactual. 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 This has devel oped since exam of December 27, 2010. IMPRESSION: 1. Exam mildly compromised artifact. No intracranial aneurysm or abrupt vessel cut off. 2. 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 Electronically signed by: Merrill Payne M.D. 06/08/2018 10:37 AM
[2018-06-08] MEDS: ATORVASTATIN 20 MG TAB PO SCH (10:57)
[2018-06-08] MEDS ORDERED: BISACODYL 5 MG TABEC PO PRN (18:27)
--- NOTE | 2018-06-08 18:27 | Family Medicine Progress Note ---
Date of Service June 08, 2018 Assessment & Plan (1) Cerebrovascular accident: CVA / ataxia / weakness / recent fall MRI with acute lacunar infarct within the right basal ganglia. Stroke protocol initiated. Neurology consulted. 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 A1c and lipd panel WNL - PT/OT/JUTE BAG CLIPPER evals ordered - Continue aspirin 81mg, atorvastatin 20mg - Check B1 and B12 - Per neuro, likely Parkinson's but want to hold Sinemet for now Constipation - Scheduled Miralax, Sennakot, bisacodyl GERD - Continue pantoprazole Arthritis CXR: degenerative changes of the shoulders and spine. VTE ppx - SCDs given falls risk (2) Ataxia: (3) Fall: (4) Parkinsons disease: (5) Weakness: Supervising Physician Co-Signing Physician Notes ATTENDING NOTE I saw the patient with the resident physician. I confirmed flynn portions of the history and physical exam. I also discussed the case with the neurology oracle drm consultant. I agree with the impression and plan as documented in the resident note. IMPRESSION Acute lacunar infarct, right basal ganglia Parkinsonian features Hypotension, episodic and resolved PLAN PT/OT/speech therapy Aspirin 81 mg and initiation of statin medication Check thiamine and B12 Subjective Patient lying in bed and otherwise denies acute issues overnight. He states his weakness and difficulty walking has been ongoing for 3 months, though it was intermittent initially and became more persistent since his fall from which he was unable to get up, which occurred ~3 weeks ago. He states intermittent left sided headaches that have been going on for a few days/weeks. He has macular degeneration but notes his vision also feels like it has worsened. He is also complaining diminished hearing in his left ear, which he states occurred this AM. He otherwise denies fevers/chills/sweats, chest pain, SOB, abdominal pain, urinary sx. He states good appetite and that he continues to drive, do his own grocery shopping, and cook for himself. He otherwise lives alone. He is an ex smoker of 45 years. He admits to drinking a few glasses of bourbon several days a week, but then states a bottle 'might last a month.' He denies h/o alcohol withdrawal. He denies new numbness or tingling or swelling of his extremities. He says he feels constipated and as far as he can remember, he last had BM a wee k ago. He does intermittently use OTC laxatives at home. Review of Systems All systems reviewed & are unremarkable except as noted in HPI & below Physical Exam Vital Signs (Past 24 Hours): Last Vital Signs Temp 36.6 C 06/08/18 15:41 Pulse 92 H 06/08/18 17:00 Resp 14 06/08/18 15:41 BP 162/81 H 06/08/18 15:41 Pulse Ox 92 06/08/18 15:41 Constitutional: WD/WN, vitals as above + thin; no acute distress and no altered mental status Eyes: PERRL, conjunctivae normal, anicteric sclerae ENMT: external ear and nose normal, oropharynx normal Ears: + EAC abnormality (Bilateral cerumen impaction) Mouth: + oral mucosal abnormality (dry mucous membranes) Neck: normal visual inspection Respiratory: normal respiratory effort, lungs clear to auscultation Cardiovascular: Rate/Rhythm: regular rate and regular rhythm Extremities: normal capillary refill; no calf tenderness and no pedal edema Chest (Breasts): Chest: normal inspection of chest Gastrointestinal (Abdomen): normal bowel sounds, soft, nontender, no hepatosplenomegaly Inspection/Auscultation: abdomen not distended Percussion/Palpation: no guarding Musculoskeletal: Head/Neck/Chest: normocephalic, head atraumatic and neck supple Extremities: strength 5/5 throughout; + extremities abnormal to inspection (extremities appear mildly emaciated) Skin: no rashes, warm and dry Neurologic: normal touch/pain/proprioception, CN's II-XI intact bilaterally and moves all extremities; no focal motor deficits Speech / Cognition: + abnormal speech (slow, soft speech); normal cognition Cranial Nerves: PERRL, normal accommodation, EOM intact bilaterally, normal facial strength, tongue midline, able to rotate head bilaterally and able to elevate shoulders tash aterally; + hearing impairment (diminished in left ear) Hypomimia appreciated. Psychiatric: A+Ox3, euthymic affect Cognition: recent memory grossly intact and remote memory grossly intact Results & Data Laboratory Results Laboratory Results - last 24 hr 06/07/18 06/07/18 06/07/18 19:15 19:15 19:15 WBC 7.24 RBC 4.28 L Hgb 14.1 Hct 40.8 L MCV 95.3 MCH 32.9 MCHC 34.6 RDW Std Deviation 43.0 RDW Coeff of Jennifer 12.4 Plt Count 244 MPV 9.9 Immature Gran % (Auto) 0.6 Neut % (Auto) 68.2 Lymph % (Auto) 17.0 [place] % (Auto) 12.8 Eos % (Auto) 1.0 Baso % (Auto) 0.4 Immature Gran # (Auto) 0.04 H Neut # (Auto) 4.94 Lymph # (Auto) 1.23 [place] # (Auto) 0.93 H Eos # (Auto) 0.07 Baso # (Auto) 0.03 Sodium 134 L Potassium 3.9 Chloride 100 Carbon Dioxide 30 Anion Gap 4.0 BUN 36 H Creatinine 1.43 H Est Cr Clr Drug Dosing Not Reportable Est GFR ( Amer) 52.1 Est GFR (Non-Af Amer) 45.0 BUN/Creatinine Ratio 25.4 H Glucose 113 H Estimat Average Glucose 105 Hemoglobin A1c 5.3 Calcium 9.3 Total Bilirubin 1.1 H AST 19 ALT 14 Alkaline Phosphatase 58 Troponin I 0.025 Total Protein 6.7 Albumin 3.9 Globulin 2.8 Albumin/Globulin Ratio 1.4 Triglycerides Cholesterol LDL Cholesterol, Calc VLDL Cholesterol, Calc HDL Cholesterol Cholesterol/HDL Ratio Urine Color Urine Appearance Urine pH Ur Specific [place] Urine Protein Urine Glucose (UA) Urine Ketones Urine Blood Urine Nitrite Urine Bilirubin Urine Urobilinogen Ur Leukocyte Esterase 06/08/18 06/08/18 06/08/18 04:57 05:59 05:59 WBC 6.28 RBC 3.88 L Hgb 12.7 L Hct 37.1 L MCV 95.6 MCH 32.7 MCHC 34.2 RDW Std Deviation 43.1 RDW Coeff of Jennifer 12.5 Plt Count 205 MPV 9.8 Immature Gran % (Auto) 0.5 Neut % (Auto) 68.5 Lymph % (Auto) 17.5 [place] % (Auto) 11.8 Eos % (Auto) 1.4 Baso % (Auto) 0.3 Immature Gran # (Auto) 0.03 H Neut # (Auto) 4.30 Lymph # (Auto) 1.10 L [place] # (Auto) 0.74 H Eos # (Auto) 0.09 Baso # (Auto) 0.02 Sodium 138 Potassium 3.8 Chloride 105 Carbon Dioxide 30 Anion Gap 3.0 BUN 33 H Creatinine 1.13 D Est Cr Clr Drug Dosing 49.3 Est GFR ( Amer) 69.3 Est GFR (Non-Af Amer) 59.8 BUN/Creatinine Ratio 29.1 H Glucose 122 H Estimat Average Glucose Hemoglobin A1c Calcium 8.7 Total Bilirubin AST ALT Alkaline Phosphatase Troponin I Total Protein Albumin Globulin Albumin/Globulin Ratio Triglycerides 69 Cholesterol 140 LDL Cholesterol, Calc 56 VLDL Cholesterol, Calc 14 HDL Cholesterol 70 Cholesterol/HDL Ratio 2 Urine Color Yellow Urine Appearance Clear Urine pH 6.0 Ur Specific [place] 1.015 Urine Protein Negative Urine Glucose (UA) Negative Urine Ketones Trace H Urine Blood Negative Urine Nitrite Negative Urine Bilirubin Negative Urine Urobilinogen Negative Ur Leukocyte Esterase Negative Resident Activity Tracking Resident Involvement: Resident Care Provided Care Provided: Adult Hospital Medicine (1) Cerebrovascular accident CVA mechanism: unspecified Qualified Code(s): I63.9 - Cerebral infarction, unspecified
[2018-06-08] MEDS: PANTOprazole 40 MG TAB PO SCH (22:10)
[2018-06-09 06:44] LABS: Basophils # (auto) 0.02 K/uL (0-0.2); Basophils % (auto) 0.3 %; Eosinophils # (auto) 0.09 K/uL (0-0.5); Eosinophils % (auto) 1.3 %; Hematocrit (blood only) 37.5 % (42-52); Hemoglobin 13.1 g/dL (14.0-18.0); Immature Granulocytes # (auto) 0.03 K/uL (0.00-0.02); Immature Granulocytes % (auto) 0.4 %; Lymphocytes # (auto) 0.95 K/uL (1.2-3.4); Lymphocytes % (auto) 13.2 %; Mean Corpuscular Hgb Conc 34.9 g/dL (32-36); Mean Corpuscular Volume 95.2 fL (80-100); Mean Platelet Volume 9.6 fL (7.4-10.4); Monocytes # (auto) 0.64 K/uL (0.11-0.59); Monocytes % (auto) 8.9 %; Neutrophils # (auto) 5.47 K/uL (1.4-6.5); Neutrophils % (auto) 75.9 %; Platelet Count 205 K/uL (130-400); RDW Coefficient of Variation 12.1 % (11.5-14.5); RDW Standard Deviation 42.4 fL (36.4-46.3); Red Blood Count 3.94 M/uL (4.7-6.1)
[2018-06-09 07:13] LABS: Calcium 8.7 mg/dl (8.5-10.1); Creatinine Clr Calc Pharmacy 60.2 ml/min; Est GFR (African American) 88.8; Est GFR (Non-African American) 76.6; Potassium 3.6 mmol/L (3.5-5.1)
--- NOTE | 2018-06-09 08:18 | Family Medicine Progress Note ---
Date of Service June 09, 2018 Assessment & Plan (1) Cerebrovascular accident: CVA / ataxia / weakness / recent fall MRI with acute lacunar infarct within the right basal ganglia. Stroke protocol initiated. Neurology consulted. 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 A1c and lipid panel WNL. STRUCTURAL DESIGNER states no issues with swallowing. PT and OT agree that patient would benefit from inpatient rehab. B12 high 1822 (double upper end of normal) - Continue aspirin 81mg, atorvastatin 20mg - Continue PT and OT - B1 level pending - Per neuro, likely Parkinson's but want to hold Sinemet for now - will need outpatient neuro follow up with Dr. Rodriguez Constipation - Scheduled Miralax, Sennakot, bisacodyl. Patient did have BM this AM. GERD - Continue pantoprazole Cerumen impaction - bilateral - Outpatient appt with PCP for ear canal irrigation Macular degeneration Not on any ophthalmic medication - May need eval for safety of continuing driving as OT notes decrease awareness of safety in their assessment Arthritis CXR: degenerative changes of the shoulders and spine. - Takes Aleve intermittently at home VTE ppx - SCDs given falls risk (2) Ataxia: (3) Fall: (4) Parkinsons disease: (5) Weakness: Supervising Physician Co-Signing Physician Notes ATTENDING NOTE I saw the patient with the resident physician. I confirmed flynn portions of the history and physical exam. I agree with the impression and plan as documented in the resident note. The patient tells me today that when he was on the Sinemet he thought that he had a noticeable improvement after couple days of therapy in terms of his overall function; however he was unable to tolerate the GI side effects. We discussed a possible retrial oral terms of medication in the future and he is aware that he will need to follow-up as an outpatient with neurology. EXAM Blood pressure 122/72. Pleasant -no acute distress. Alert and oriented; speech is slow and somewhat deliberate at times but easily understood. Cardiovascular regular; lungs clear IMPRESSION Acute lacunar infarct, right basal ganglia Parkinsonian features Hypotension, episodic and resolved PLAN Plan would be for inpatient rehabilitation Continue low-dose aspirin and statin B12 is high likely indicative of outpatient supplementation; thiamine is pending Ultimately to have outpatient follow-up with neurology for continued evaluation/management of his parkinsonian features. Subjective Patient sitting out of bed in chair and denies acute issues overnight. He continues to complain about weakness, mainly of his legs. He is also complaining diminished hearing but understands there is no ability to irrigate ears in the hospital and understands his PCP might be able to help in this regard. Though he sometimes is feeling hot and cold, he denies fevers/chills/sweats. He is not having chest pain, SOB, abdominal pain, urinary sx, and did have a BM this AM, although he states he still feels constipated. He states good appetite. He denies new numbness or tingling or swelling of his extremities. When discussing OT and PT evals, he states he is amenable to intensive rehab to optimize recovery. Review of Systems All systems reviewed & are unremarkable except as noted in HPI & below Physical Exam Vital Signs (Past 24 Hours): Last Vital Signs Temp 37.0 C 06/09/18 06:49 Pulse 70 06/09/18 06:49 Resp 18 06/09/18 06:49 BP 184/87 H 06/09/18 06:49 Pulse Ox 94 06/09/18 06:49 Constitutional: WD/WN, vitals as above + thin; no acute distress and no altered mental status Eyes: PERRL, conjunctivae normal, anicteric sclerae ENMT: external ear and nose normal, oropharynx normal Ears: + EAC abnormality (Bilateral cerumen impaction) Mouth: + oral mucosal abnormality (dry mucous membranes) Neck: normal visual inspection Respiratory: normal respiratory effort, lungs clear to auscultation Cardiovascular: Rate/Rhythm: regular rate and regular rhythm Extremities: normal capillary refill; no calf tenderness and no pedal edema Chest (Breasts): Chest: normal inspection of chest Gastrointestinal (Abdomen): normal bowel sounds, soft, nontender, no hepatosplenomegaly Inspection/Auscultation: abdomen not distended Percussion/Palpation: no guarding Musculoskeletal: Head/Neck/Chest: normocephalic, head atraumatic and neck supple Extremities: strength 5/5 throughout; + extremities abnormal to inspection (extremities appear mildly emaciated) Skin: no rashes, warm and dry Neurologic: normal touch/pain/proprioception, CN's II-XI intact bilaterally and moves all extremities; no focal motor deficits Speech / Cognition: + abnormal speech (slow, soft speech); normal cognition Cranial Nerves: PERRL, normal accommodation, EOM intact bilaterally, normal facial strength, tongue midline, able to rotate head bilaterally and able to elevate shoulders bilaterally; + hearing impairment (diminished in left ear) Psychiatric: A+Ox3, euthymic affect Cognition: recent memory grossly intact and remote memory grossly intact Results & Data Laboratory Results Laboratory Results - last 24 hr 06/09/18 06/09/18 06/09/18 06:24 06:24 06:24 WBC 7.20 RBC 3.94 L Hgb 13.1 L Hct 37.5 L MCV 95.2 MCH 33.2 MCHC 34.9 RDW Std Deviation 42.4 RDW Coeff of Jennifer 12.1 Plt Count 205 MPV 9.6 Immature Gran % (Auto) 0.4 Neut % (Auto) 75.9 Lymph % (Auto) 13.2 [place] % (Auto) 8.9 Eos % (Auto) 1.3 Baso % (Auto) 0.3 Immature Gran # (Auto) 0.03 H Neut # (Auto) 5.47 Lymph # (Auto) 0.95 L [place] # (Auto) 0.64 H Eos # (Auto) 0.09 Baso # (Auto) 0.02 Sodium 138 Potassium 3.6 Chloride 106 Carbon Dioxide 26 Anion Gap 6.0 BUN 26 H Creatinine 0.92 Est Cr Clr Drug Dosing 60.2 Est GFR ( Amer) 88.8 Est GFR (Non-Af Amer) 76.6 BUN/Creatinine Ratio 28.0 H Glucose 104 H Calcium 8.7 Vitamin B12 1822 H Resident Activity Tracking Resident Involvement: Resident Care Provided Care Provided: Adult Hospital Medicine (1) Cerebrovascular accident CVA mechanism: unspecified Qualified Code(s): I63.9 - Cerebral infarction, unspecified
[2018-06-09] MEDS: ASPIRIN 81 MG ECTAB PO SCH (09:02)
[2018-06-09] MEDS: ATORVASTATIN 20 MG TAB PO SCH (09:02)
[2018-06-09] MEDS: DOCUSATE SODIUM/SENNA 50/8.6MG TAB PO SCH (09:03)
[2018-06-09] MEDS: POLYETHYLENE (MIRALAX) 17 GM PACK PO SCH (09:03)
[2018-06-09] MEDS: ACETAMINOPHEN 325 MG TAB PO PRN (11:58)
[2018-06-09] MEDS: PANTOprazole 40 MG TAB PO SCH (20:23)
[2018-06-10 05:46] LABS: Basophils # (auto) 0.02 K/uL (0-0.2); Basophils % (auto) 0.3 %; Eosinophils # (auto) 0.07 K/uL (0-0.5); Eosinophils % (auto) 0.9 %; Hematocrit (blood only) 38.7 % (42-52); Hemoglobin 13.4 g/dL (14.0-18.0); Immature Granulocytes # (auto) 0.02 K/uL (0.00-0.02); Immature Granulocytes % (auto) 0.3 %; Lymphocytes # (auto) 0.88 K/uL (1.2-3.4); Lymphocytes % (auto) 11.7 %; Mean Corpuscular Hgb Conc 34.6 g/dL (32-36); Mean Corpuscular Volume 94.4 fL (80-100); Mean Platelet Volume 9.7 fL (7.4-10.4); Monocytes # (auto) 0.52 K/uL (0.11-0.59); Monocytes % (auto) 6.9 %; Neutrophils % (auto) 79.9 %; Platelet Count 214 K/uL (130-400); RDW Coefficient of Variation 12.1 % (11.5-14.5); RDW Standard Deviation 40.9 fL (36.4-46.3); White Blood Count 7.51 K/uL (4.8-10.8)
[2018-06-10 06:11] LABS: BUN Creatinine Ratio 24.9 (10-20); Calcium 9.2 mg/dl (8.5-10.1); Creatinine Clr Calc Pharmacy 54.9 ml/min; Est GFR (African American) 79.4; Est GFR (Non-African American) 68.5; Potassium 3.8 mmol/L (3.5-5.1)
--- NOTE | 2018-06-10 08:33 | Neurology Progress Note ---
Date of Service June 10, 2018 Assessment & Plan (1) Cerebrovascular accident: The patient has had a very small acute right basal ganglia stroke on June 07 resulting in some mild left michael paresis. Today, he has been up walking and he feels he is somewhat improved compared to admission. Etiology of this stroke is likely a small vessel ischemic disease secondary to hypertensive cerebral vascular disease. Patient continues to have significant hypertension. The MR angiography revealed a multifocal stenotic left vertebral artery which is likely chronic. He has a fairly mild amount of old small vessel ischemic disease on MRI considering his age and condition. (2) Parkinsons disease: The patient has some mild bradykinesia and rigidity left slightly greater than right side. He does not have any resting tremor today. Patient probably has a mild Parkinson's disease. He was initiated recently on Sinemet which improved some symptoms, however this resulted in stomach cramps, and was discontinued. Recommendations: 1. Continue physical, occupational, and speech therapy consult. 2. Continue 81 mg aspirin tablet daily. 3. Continue atorvastatin 20 mg daily. I do not believe he is a high-dose statin candidate in lieu of his age and lipid parameters. 4. Control blood pressure, aiming for a mean arterial pressure of approximately 100. 5. Consider rehabilitation hospital transfer for increased physical therapy regarding his stroke and Parkinson's disease. 6. Follow up with Dr. Rodriguez as an outpatient for follow-up of stroke and consideration of Parkinson's disease treatment. Otherwise, I have no further neurologic testing or treatment recommendations to make at this time. Please contact me if I can be of further assistance. Overall, I spent a total of 35 minutes with this case including review of records, review of films, direct evaluation the patient at bedside, and discussion of the case with the patient, clinical staff, and Dr. Iniguez, including differential diagnosis and treatment options. Subjective And feels uncomfortable and that his feet are cold. He denies headache, pain, dizziness (although he was a little lightheaded when he was standing earlier today). He has no double vision but feels his vision may be blurry little bit at times. He continues to have some left-sided weakness but feels this is improved compared to 2 days ago. Blood pressure is elevated at 190 8/102. Otherwise, he is afebrile. CBC shows a very slight anemia but this is stable. Chem profile is unremarkable and glucose is 113. B12 was normal. MRI of the brain revealed a very tiny acute right basal ganglia lacunar infarct. He has moderate generalized atrophy and ventriculomegaly with mild scattered, nonspecific old microvascular ischemic changes. I reviewed these films. MR angiography of the head was unremarkable although the left vertebral distally is stenotic. MR angiography of the neck reveals a small multi focal stenotic left vertebral artery. The right vertebral and both carotids were patent. Echocardiogram was largely unremarkable although there was some mild left ventricular hypertrophy. Physical Exam Vital Signs (Past 24 Hours): Last Vital Signs Temp 36.9 C 06/10/18 07:07 Pulse 84 06/10/18 07:07 Resp 18 06/10/18 07:07 BP 173/78 H 06/10/18 07:07 Pulse Ox 95 06/10/18 07:07 Physical Exam: He is awake and alert. His speech is without aphasia or dysarthria. Mood is reasonable and affect is appropriate. Thought processes are intact to conversation. Extraocular eye muscles are intact without nystagmus. Pupils are 3 mm bilaterally and reactive to light. There is no obvious facial droop and tongue is midline. With outstretched arms, there is no drift. There is no resting, postural, or action tremor this morning. He has mild bradykinesia in general and mild rigidity of the limbs left slightly greater than right side. Motor strength is essentially 5/5 diffusely in the right arm and leg both pro ximally and distally. In the left arm and leg strength is 4+/5 diffusely. Reflexes are 1/4 throughout and toes are downgoing to plantar stimulation bilaterally. Results & Data Diagnostic Findings Brain MRI WITH AND WITHOUT CONTRAST HISTORY: Tremors. ACUTE PARKINSONISM SYNDROME TECHNIQUE: Multiplanar multisequence MRI of the brain was performed both before and after the intravenous administration of contrast. COMPARISON STUDY: Brain MRI 12/27/2010. FINDINGS: There is a punctate focus of restricted diffusion within the right basal ganglia on image 16. This is consistent with an acute lacunar infarct. Absent flow-void within the distal left vertebral artery likely representing an occlusion. Progressive moderate atrophy within the brain. There is no mass, hematoma, or midline shift. The paranasal sinuses and mastoid air cells are clear. Periventricular T2 hyperintensity is nonspecific but favors mild microva scular ischemic change. No abnormal enhancement. IMPRESSION: 1. Acute lacunar infarct within the right basal ganglia. 2. The distal left vertebral artery appears occluded. This is technically age- indeterminate but likely chronic. No associated posterior circulation infarcts to suggest an acute occlusion. 3. Moderate atrophy which has slightly progressed. Electronically signed by: Surya Balderrama M.D. 06/07/2018 3:33 PM (1) Cerebrovascular accident CVA mechanism: unspecified Qualified Code(s): I63.9 - Cerebral infarction, unspecified
[2018-06-10] MEDS: DOCUSATE SODIUM/SENNA 50/8.6MG TAB PO SCH (09:02)
[2018-06-10] MEDS: ASPIRIN 81 MG ECTAB PO SCH (09:02)
[2018-06-10] MEDS: ATORVASTATIN 20 MG TAB PO SCH (09:02)
[2018-06-10] MEDS: POLYETHYLENE (MIRALAX) 17 GM PACK PO SCH (09:02)
--- NOTE | 2018-06-10 15:05 | Family Medicine Progress Note ---
Date of Service June 10, 2018 Assessment & Plan (1) Cerebrovascular accident: Mr. Monge is an 83 year old male without a significant medical history undergoing a workup for ataxia. CVA / ataxia / weakness / recent fall MRI with acute lacunar infarct within the right basal ganglia. Stroke protocol initiated. Neurology consulted. 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 - HbA1c and lipid panel WNL. - Continue aspirin 81mg, atorvastatin 20mg - B1 level pending - Per neuro, likely Parkinson's but want to hold Sinemet for now - will need outpatient neuro follow up with Dr. Rodriguez, at which point, they will consider starting extended release sinemet - BP was high during initial presentation - pt states he was on lisinopril previously, but this was discontinued due to low BP. 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 - PT and OT recommend from inpatient rehab. - ECHO with EF of 60-65%, LVH and grade 1 diastolic dysfunction Constipation - resolved - Bowel regimen includes - Miralax, Sennakot, bisacodyl GERD - Continue pantoprazole Cerumen impaction - bilateral - debrox ear drops bid & ear canal irrigation Macular degeneration - Not on any ophthalmic medication - May need formal eval for safety of continuing driving as OT notes decrease awareness of safety in their assessment Arthritis CXR: degenerative changes of the shoulders and spine. - Takes Aleve intermittently at home Code status: FULL DVT Prophylaxis: SCDs given falls risk Disposition: stable for transfer to med/surg. Referrals being placed to [facility] and [facility]. Stable for discharge when bed available. (2) Ataxia: (3) Fall: (4) Parkinsons disease: (5) Weakness: Supervising Physician Co-Signing Physician Notes I personally examined the patient and verified all flynn points of history and exam, discussed case, and agree with decision making with Dr Iniguez. Feeling better, considering his options about going to rehab, but wants to talk to his daughter first. Later in seeing input from case management it sounds like the daughter would prefer him to go to rehab as well. No new complaints otherwise. Vitals noted, in general he is awake and alert no distress. HEENT normocephalic atraumatic mucous membranes moist. Breathing is unlabored no accessory muscle use. Skin shows no rashes no pallor or icterus. CVAmed management for secondary risk reduction, rehab placement once possible. Safe to move to [facility] today otherwise. Otherwise as above Subjective Mr. Monge reports he is uncomfortable. He states his room is too cold, and he feels weak. He denies a headache, fever, chills, nausea or vomiting. He tolerated his breakfast without any problems. He was agreeable to a short rehab stay, provided he was able to be discharged home afterwards. Constitutional: + weakness; no fever and no chills Respiratory: no cough and no dyspnea Cardiovascular: no chest pain, no edema and no calf pain Gastrointestinal: no abdominal pain, no nausea and no vomiting Physical Exam Vital Signs (Past 24 Hours): Last Vital Signs Temp 36.6 C 06/10/18 14:25 Pulse 86 06/10/18 14:25 Resp 16 06/10/18 14:25 BP 117/66 06/10/18 14:25 Pulse Ox 96 06/10/18 14:25 Constitutional: WD/WN, vitals as above + thin; no acute distress and no altered mental status ENMT: external ear and nose normal, oropharynx normal Respiratory: normal respiratory effort, lungs clear to auscultation Cardiovascular: Rate/Rhythm: regular rate and regular rhythm Extremities: no calf tenderness and no pedal edema Gastrointestinal (Abdomen): normal bowel sounds, soft, nontender, no hepatosplenomegaly Musculoskeletal: Head/Neck/Chest: normocephalic, head atraumatic and neck supple Extremities: strength 5/5 throughout (4/5 in left arm, mostly with gauger chief delivery strength) Skin: no rashes, warm and dry Neurologic: moves all extremities Speech / Cognition: + abnormal speech (slow, soft speech. takes a moment after you ask a question to respond) Psychiatric: A+Ox3, euthymic affect Results & Data Laboratory Results Laboratory Results - last 24 hr 06/10/18 06/10/18 06/10/18 05:32 05:32 11:39 WBC 7.51 RBC 4.10 L Hgb 13.4 L Hct 38.7 L MCV 94.4 MCH 32.7 MCHC 34.6 RDW Std Deviation 40.9 RDW Coeff of Jennifer 12.1 Plt Count 214 MPV 9.7 Immature Gran % (Auto) 0.3 Neut % (Auto) 79.9 Lymph % (Auto) 11.7 Dickey % (Auto) 6.9 Eos % (Auto) 0.9 Baso % (Auto) 0.3 Immature Gran # (Auto) 0.02 Neut # (Auto) 6.00 Lymph # (Auto) 0.88 L Dickey # (Auto) 0.52 Eos # (Auto) 0.07 Baso # (Auto) 0.02 Sodium 137 Potassium 3.8 Chloride 103 Carbon Dioxide 26 Anion Gap 8.0 BUN 25 H Creatinine 1.01 Est Cr Clr Drug Dosing 54.9 Est GFR ( Amer) 79.4 Est GFR (Non-Af Amer) 68.5 BUN/Creatinine Ratio 24.9 H Glucose 113 H POC Glucose 140 H Calcium 9.2 Medications Administered Current Inpatient Medications Acetaminophen (Tylenol) 650 mg PO Q4H PRN PRN Reason: Pain or Fever Stop: 07/07/18 22:02 Last Admin: 06/09/18 11:58 Dose: 650 mg Documented by: Al Hydrox/Mg Hydrox/Simethicone (Maalox) 15 ml PO Q4H PRN PRN Reason: Dyspepsia Stop: 07/07/18 22:02 Aspirin (Ecotrin Ectab) 81 mg PO [facility] Stop: 07/09/18 08:59 Last Admin: 06/10/18 09:02 Dose: 81 mg Documented by: Atorvastatin Calcium (Lipitor) 20 mg PO [facility] Stop: 07/08/18 08:59 Last Admin: 06/10/18 09:02 Dose: 20 mg Documented by: Bisacodyl (Dulcolax) 5 mg PO DAILY PRN PRN Reason: Constipation Stop: 07/08/18 18:26 Gadobutrol (Gadavist 30ml) 7 ml IV ONCE PRN PRN Reason: Interaction Checking Stop: 06/12/18 10:05 Last Admin: 06/08/18 10:07 Dose: 7 ml Documented by: Magnesium Hydroxide (Milk Of Magnesia) 30 ml PO Q12H PRN PRN Reason: Constipation Stop: 07/07/18 22:02 Miscellaneous Information (Pharmacist Discharge Med Rec Consult) 1 ea N/A UD PRN PRN Reason: Consult Stop: 07/07/18 22:02 Ondansetron HCl (Zofran) 4 mg IV Q6H PRN PRN Reason: Nausea Stop: 07/07/18 22:02 Pantoprazole Sodium (Protonix) 40 mg PO HS [facility] Stop: 07/08/18 20:59 Last Admin: 06/09/18 20:23 Dose: 40 mg Documented by: Polyethylene Glycol (Miralax Powder Packet) 17 gm PO DAILY [facility] Stop: 07/09/18 08:59 Last Admin: 06/10/18 09:02 Dose: 17 gm Documented by: Senna/Docusate Sodium (Senokot S) 1 tab PO QAM [facility] Stop: 07/09/18 08:59 Last Admin: 06/10/18 09:02 Dose: 1 tab Documented by: Resident Activity Tracking Resident Involvement: Resident Care Provided Care Provided: Adult Hospital Medicine (1) Cerebrovascular accident CVA mechanism: unspecified Qualified Code(s): I63.9 - Cerebral infarction, unspecified
[2018-06-10] MEDS: CARBAMIDE PEROXIDE 6.5% 15 ML BTL OT SCH ×2 (18:25→20:38)
[2018-06-10] MEDS: PANTOprazole 40 MG TAB PO SCH (21:27)
[2018-06-11] MEDS: POLYETHYLENE (MIRALAX) 17 GM PACK PO SCH (07:44)
[2018-06-11] MEDS: CARBAMIDE PEROXIDE 6.5% 15 ML BTL OT SCH (07:45)
[2018-06-11] MEDS: DOCUSATE SODIUM/SENNA 50/8.6MG TAB PO SCH (07:45)
[2018-06-11] MEDS: ASPIRIN 81 MG ECTAB PO SCH (07:45)
[2018-06-11] MEDS: ACETAMINOPHEN 325 MG TAB PO PRN ×2 (07:46→13:42)
[2018-06-11] MEDS ORDERED: LISINOPRIL 5 MG TAB PO SCH ×2 (09:00)
--- NOTE | 2018-06-11 09:42 | Family Medicine Progress Note ---
Date of Service June 11, 2018 Assessment & Plan (1) Cerebrovascular accident: Mr. Monge is an 83 year old male without a significant medical history undergoing a workup for ataxia. CVA / ataxia / weakness / recent fall MRI with acute lacunar infarct within the right basal ganglia. Stroke protocol initiated. Neurology consulted. 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 - HbA1c and lipid panel WNL. - Continue aspirin 81mg, atorvastatin 20mg - B1 level pending - Per neuro, likely Parkinson's but want to hold Sinemet for now - will need outpatient neuro follow up with Dr. Rodriguez, at which point, they will consider starting extended release sinemet - BP was high during initial presentation - pt states he was on lisinopril previously, but this was discontinued due to low BP. 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 - PT and OT recommend from inpatient rehab. - ECHO with EF of 60-65%, LVH and grade 1 diastolic dysfunction Constipation - resolved - Bowel regimen includes - Miralax, Sennakot, bisacodyl GERD - Continue pantoprazole Cerumen impaction - bilateral - debrox ear drops bid & ear canal irrigation Macular degeneration - Not on any ophthalmic medication - May need formal eval for safety of continuing driving as OT notes decrease awareness of safety in their assessment Arthritis CXR: degenerative changes of the shoulders and spine. - Takes Aleve intermittently at home Code status: FULL DVT Prophylaxis: SCDs given falls risk Disposition: stable for transfer to med/surg. Referrals being placed to [facility] and [facility]. Stable for discharge when bed available. (2) Ataxia: (3) Fall: (4) Parkinsons disease: (5) Weakness: Subjective Mr. Monge reports he feels like his hearing is diminished and that both ears are clogged. He denies any other complaints today, but is concerned about his hearing. Constitutional: no fever and no chills Respiratory: no cough and no chest congestion Cardiovascular: no chest pain Gastrointestinal: no abdominal pain, no nausea and no vomiting Physical Exam Vital Signs (Past 24 Hours): Last Vital Signs Temp 37.0 C 06/11/18 07:56 Pulse 70 06/11/18 07:56 Resp 18 06/11/18 07:56 BP 195/67 H 06/11/18 07:56 Pulse Ox 94 06/11/18 07:56 Constitutional: WD/WN, vitals as above no acute distress ENMT: b/l cerumen impaction Respiratory: normal respiratory effort, lungs clear to auscultation Cardiovascular: Rate/Rhythm: regular rate and regular rhythm Extremities: no calf tenderness and no pedal edema Neurologic: Speech / Cognition: + abnormal speech (slow, soft speech. takes a moment after you ask a question to respond) (1) Cerebrovascular accident CVA mechanism: unspecified Qualified Code(s): I63.9 - Cerebral infarction, unspecified
--- NOTE | 2018-06-11 11:15 | Neurology Progress Note ---
Date of Service June 11, 2018 Assessment & Plan (1) Cerebrovascular accident: The patient had a very small acute right basal ganglia stroke on June 07 resulting in some mild left hemiparesis. Today, he has been up walking with physical therapy and doing very well. Unfortunately, he has some hypotension now because of some medication for hypertension. Etiology of this stroke is likely a small vessel ischemic disease secondary to hypertensive cerebral vascular disease. Patient continues to have intermittent hypertension. The MR angiography revealed a multifocal stenotic left vertebral artery which is likely chronic. He has a fairly mild amount of old small vessel ischemic di sease on MRI considering his age and condition. (2) Parkinsons disease: The patient has some mild bradykinesia and rigidity left slightly greater than right side. He does not have any resting tremor that I have noticed during this hospitalization. Patient probably has mild Parkinson's disease. He was initiated recently on Sinemet which improved some symptoms, however this resulted in stomach cramps, and was discontinued. He has a very wide pulse pressure and small doses of medication create hypotension. Anti parkinsonian medications may create hypotension as well. Recommendations: 1. Continue physical, occupational, and speech therapy consult. 2. Continue 81 mg aspirin tablet daily. 3. Continue atorvastatin 20 mg daily. I do not believe he is a high-dose statin candidate in lieu of his age and lipid parameters. 4. Control blood pressure, aiming for a mean arterial pressure of approximately 100, because of his tendency to hypotension we may have to tolerate slightly higher blood pressures. 5. Consider rehabilitation hospital transfer for increased physical therapy regarding his stroke and Parkinson's disease. 6. Follow up with Dr. Rodriguez as an outpatient for follow-up of stroke and consideration of Parkinson's disease treatment. Please contact me if I can be of further assistance. If the daughter comes to the hospital the nursing can call E and I can talk to her over the phone. Overall, I spent a total of 25 minutes with this case including review of records, review of films, direct evaluation the patient at bedside, and discussion of the case with the patient, clinical staff, Dr. Aranda, and Dr. Iniguez, including differential diagnosis and treatment options. Subjective Feels a little bit tired and lightheaded this morning. He had some hypertension (195/67) was given 5 milligrams lisinopril. His blood pressure dropped to 86/42. He is now lying comfortably in bed with a blood pressure of 121/61 and is oriented. He is moving his limbs well with no abnormal movements. He has no complaint of pain or headaches. He is not cold. I tried to contact the patient's daughter, who wanted to speak with me regarding his parkinsonism, but I could not reach her. Physical Exam Vital Signs (Past 24 Hours): Last Vital Signs Temp 37.0 C 06/11/18 07:56 Pulse 70 06/11/18 07:56 Resp 18 06/11/18 07:56 BP 121/61 06/11/18 11:06 Pulse Ox 94 06/11/18 07:56 Physical Exam: He is awake and alert and conversant. Mood is good and is cooperative. There is no dysarthria or aphasia. There is no facial droop. Strength is symmetrical in the limbs. He has no abnormal involuntary movements. (1) Cerebrovascular accident CVA mechanism: unspecified Qualified Code(s): I63.9 - Cerebral infarction, unspecified
[2018-06-11] MEDS: ATORVASTATIN 20 MG TAB PO SCH (11:30)
[2018-06-11] MEDS ORDERED: STROKE PATIENT DISCHARGE STA (16:03)
--- NOTE | 2018-06-11 17:29 | Discharge Summary ---
Date of Service June 11, 2018 Admission HPI Per Admitting Provider 83 y/o M without a significant medical history who is undergoing a workup for ataxia. The pt states that he is having difficulty initiating speech and movement. He denies a significant tremor or noticeable unilateral weakness. He also states that he is occasionally lightheaded. He suffered a fall into a snow bank approximately one week ago after becoming lightheaded walking toward his house. The pt was placed on Sinemet for a presumed diagnosis of Parkinson's initially but he had an adverse reaction to the medication, describing involuntary movements and GI upset. He was sent for an MRI as part of a neurolo gical workup. This demonstrated an acute lacunar infarct in the basal ganglia. The pt was directed to the ER for admission. Initial exam demonstrated subtle L sided weakness which the pt did not discern as a symptom. Ataxia is apparent. The pt was hypotensive on arrival to the ER with an SBP in the low 90s. He responded to IVF. He had c/o a headache, however, this resolved after he received ASA. Initial labs are notable for mild YANN. PMH: Denies a significant medical history Social: He smoked cigarettes in the 1970s. He has three bourbon-based beverages per evening. He lives alone and is fully independent although he is having difficulty since the onset of his symptoms. Family: Mother at age 70 due to an [place] Father in an MVA Admission Exam Per Admitting Provider General: Pleasant, elderly male with readily apparent ataxia, AAO x 3, no distress ENT: No erythema or exudates, no thrush Eyes: BRITT, EOMI Head and neck: Normocephalic, atraumatic, No JVD, neck is supple. 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 The weakness is also apparent in the LLE. Coordination shows subtle impairment on the L. Sensation is intact BL. Musculoskeletal: No joint inflammation, muscle tenderness, FROM Skin: No acute rashes or ulcers Extremities: No clubbing, cyanosis, edema Principal Diagnosis Stroke Discharge Exam Constitutional WD/WN, vitals as above ENMT external ear and nose normal, oropharynx normal Ears: + hearing impairment (due to b/l cerumen impaction) Respiratory normal respiratory effort, lungs clear to auscultation Cardiovascular RRR, no murmur, no edema Gastrointestinal (Abdomen) normal bowel sounds, soft, nontender, no hepatosplenomegaly Musculoskeletal Head/Neck/Chest: head atraumatic Extremities: strength 5/5 throughout (4/5 in left arm, mostly with director e learning strength) Skin no rashes, warm and dry Neurologic moves all extremities Psychiatric A+Ox3, euthymic affect Discharge Data Allergies Allergy/AdvReac Type Severity Reaction Status Date / Time codeine AdvReac NAUSEA Verified 06/07/18 15:22 Consultations 06/07/18 20:22 ED Decision to Admit Stat 06/07/18 22:03 Consult Case Management - Discharge Planning Routine Consult Neurology Routine 06/09/18 08:16 Consult Case Management - Discharge Planning Routine Ordered Studies 06/08/18 22:03 MR angio neck wo/w con Routine 06/08/18 22:05 MR angio head wo con Routine Hospital Course (1) Cerebrovascular accident: Mr. Monge is an 83 year old male without a significant past medical history who was admitted to [facility] due to a stroke. He was discharged to [facility]. CVA / ataxia / weakness / recent fall MRI with acute lacunar infarct within the right basal ganglia. Stroke protocol initiated. 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 - HbA1c and lipid panel WNL. - Started on aspirin 81mg, atorvastatin 20mg - B1 level pending, f/u in outpatient setting (patient admits to daily drinking) - Per neuro, likely Parkinson's but want to hold Sinemet for now - will need outpatient neuro follow up with Dr. Rodriguez, at which point, they will consider starting extended release sinemet vs. other medications as patient had adverse reaction to sinemet in the past - BP was high during initial presentation - pt states he was on lisinopril previously, but this was discontinued due to low BP. Lisinopril 5mg was restarted in inpatient setting and patient's BP dropped to 60/40s. Will NOT start antihypertensive, and allow BPs to run high. His sensitivity is likely secondary to his autonomic dysfunction as part of his Parkinson's disease. 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 - PT and OT recommended from inpatient rehab. - ECHO with EF of 60-65%, LVH and grade 1 diastolic dysfunction GERD - Continue pantoprazole Cerumen impaction - bilateral - debrox ear drops bid - recommend outpatient ear canal irrigation Macular degeneration - Not on any ophthalmic medication - May need formal eval for safety of continuing driving as OT notes decrease awareness of safety in their assessment Arthritis CXR: degenerative changes of the shoulders and spine. - Takes Aleve intermittently at home (2) Ataxia: (3) Fall: (4) Parkinsons disease: (5) Weakness: Total Time Total Time Spent Total Time Spent (In Minutes): >30 Discharge Plan Discharge Items Patient Disposition: Transfer Inpatient Rehab Fac Reason For Visit: CVA Discharge Diagnosis: Stroke, Parkinson's Disease Discharge Goals: Decrease discomfort Activity: Resume your previous activity Non-emergency contact: Primary Care Provider Call non-emergency contact if: you have any medication questions and you have a fever Follow-up/Referrals: Nithin Feliciano [Primary Care Provider] - Diet: Regular Addtl Provider Instructions: Mr. Monge is an 83 year old male without a significant medical history who was admitted to [facility] due to a stroke. CVA / ataxia / weakness / recent fall MRI with acute lacunar infarct within the right basal ganglia. 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 - HbA1c and lipid panel WNL. - Started on aspirin 81mg, atorvastatin 20mg - B1 level pending - Per neuro, likely Parkinson's but want to hold Sinemet for now - will need outpatient neuro follow up with Dr. Rodriguez, at which point, they will consider starting extended release sinemet vs. other medications - BP was high during initial presentation - pt states he was on lisinopril previously, but this was discontinued due to low BP. We attempted to restart the lisinopril here, but his blood pressure dropped to 60/40. We will NOT be starting him on any anti-hypertensives and strongly recommend against this in the outpatient setting. He likely has a degree of autonomic dysfunction secondary to his Parkinson's that makes him susceptible to antihypertensives. 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 - PT and OT recommend from inpatient rehab. - ECHO with EF of 60-65%, LVH and grade 1 diastolic dysfunction GERD - Continue pantoprazole Cerumen impaction - bilateral - debrox ear drops bid started in the hospital - recommend outpatient ear canal irrigation Macular degeneration - Not on any ophthalmic medication - May need formal eval for safety of continuing driving as OT notes decrease awareness of safety in their assessment Arthritis CXR: degenerative changes of the shoulders and spine. - Takes Aleve intermittently at home - would recommend against further NSAID use due to ill defined but real increase risk in vascular events when on NSAIDs Prescriptions: New atorvastatin 20 mg Tablet 20 mg PO QAM 30 Days Qty: 30 RF: 0 aspirin [Ecotrin Low Strength] 81 mg Tablet,Delayed Release (Dr/Ec) 81 mg PO QAM 30 Days Qty: 30 RF: 0 Continued omeprazole 20 mg capsule,delayed release(DR/EC) 20 mg PO HS RF: 0 ergocalciferol (vitamin D2) [Vitamin D2] 50,000 unit capsule 50,000 units PO WK RF: 0 PreserVision AREDS [id number],[id number] [id number] Tablet 1 tab PO WK RF: 0 Stand-Alone Forms: [facility] Discharge Orders: Discharge Order (Routine); Ordered 06/11/18 Ordered By: Kalyan Goncalves Skilled Items Patient informed of condition?: Yes DNR: No Discharge Level of Care: Skilled Communicable Disease: No Discharge Prognosis: Stable Admission Data Admit Date/Time: 06/10/18 13:11 Attending Provider: Trevor Aranda Admit Provider: Micha Kearns Primary Care Provider: Nithin Feliciano Other Providers: Tito Morley ; Micha Kearns ; Finesse Rodriguez Service: Medical Other Interventions: Discharge Summary Assessment (RN) Last Done: 06/11/18 16:29 DC Date/Time DO NOT enter until pt leaves facility: 06/11/18 18:39 Supervising Physician Co-Signing Physician Notes I personally examined the patient and verified all flynn points of history and exam, discussed case, and agree with decision making with Dr Iniguez. Feeling better overall, however he was a bit lightheaded after receiving only 5 mg of lisinopril but having a market reduction in his blood pressure with it. Fortunately he had no new or unmasked neurologic deficits. Later in follow-up he is feeling better, and his blood pressure is improved a good deal. Vitals noted, in general he is awake and alert no distress. HEENT normocephalic atraumatic mucous membranes moist. Breathing is unlabored no accessory muscle use. Skin shows no rashes no pallor or icterus. Exam otherwise as above CVAmed management for secondary risk reduction, rehab placement later today. In regards to his hypertension, he appears to have a degree of Parkinson's related autonomic insufficiency given his exquisite sensitivity to antih ypertensives. At this point given that his blood pressures dropped dramatically with an extremely low dose of and not extremely potent antihypertensive, risks/benefits favor a degree of cautious permissive hypertension and close follow-up. Should any blood pressure medicines need to be initiated, would do so under close supervision given today's episode. He is stable for transfer to rehab hospital. YANN/acute azotemia - resolved quickly. outpt f/u BMP for stability. Otherwise as above Resident Activity Tracking Resident Involvement: Resident Care Provided Care Provided: Adult Hospital Medicine
== END 2018-06-11 18:39 | DRG 65 ==
LOC: 2E 17:52 → ED 17:52 → SUATTDRO 22:06 → 2E 23:27 → 4W 06-10 13:12

== ENCOUNTER 2018-10-21 21:38 | Inpatient (IN) ==
[2018-10-21] MEDS ORDERED: SODIUM CHLORIDE 0.9% 1000ML 1,000 ML IV SCH (22:30)
--- NOTE | 2018-10-21 22:45 | XRay Report ---
XR chest 1V portable HISTORY: weakness COMPARISON: Chest 06/07/2018. FINDINGS: Calcified granuloma within the right lung base is again noted. There is a tortuous thoracic aorta, unchanged. The heart is stable in size. A few small linear scarlike densities at the left kyung g bases remain unchanged. No new focal lung consolidations to suggest pneumonia. No evidence for pulm onary edema. No pleural effusions. No pneumothorax. IMPRESSION: No significant change compared to the prior study. No acute process. Electronically signed by: Surya Balderrama M.D. 10/21/2018 10:44 PM
[2018-10-21 23:10] LABS: Basophils # (auto) 0.02 K/uL (0-0.2); Basophils % (auto) 0.3 %; Eosinophils # (auto) 0.01 K/uL (0-0.5); Eosinophils % (auto) 0.1 %; Hematocrit (blood only) 39.6 % (42-52); Hemoglobin 13.7 g/dL (14.0-18.0); Immature Granulocytes # (auto) 0.02 K/uL (0.00-0.02); Immature Granulocytes % (auto) 0.3 %; Lymphocytes # (auto) 1.24 K/uL (1.2-3.4); Lymphocytes % (auto) 16.3 %; Mean Corpuscular Hemoglobin 31.6 pg (25-34); Mean Corpuscular Hgb Conc 34.6 g/dL (32-36); Mean Corpuscular Volume 91.5 fL (80-100); Mean Platelet Volume 9.4 fL (7.4-10.4); Monocytes # (auto) 1.08 K/uL (0.11-0.59); Monocytes % (auto) 14.2 %; Neutrophils # (auto) 5.26 K/uL (1.4-6.5); Neutrophils % (auto) 68.8 %; Platelet Count 250 K/uL (130-400); RDW Coefficient of Variation 12.1 % (11.5-14.5); RDW Standard Deviation 40.7 fL (36.4-46.3); Red Blood Count 4.33 M/uL (4.7-6.1); White Blood Count 7.63 K/uL (4.8-10.8)
[2018-10-21 23:26] LABS: Albumin Level 3.8 gm/dl (3.4-5.0); BUN Creatinine Ratio 13.7 (10-20); Calcium 9.1 mg/dl (8.5-10.1); Creatinine Clr Calc Pharmacy 29.5 ml/min; Est GFR (Non-African American) 31.9; Potassium 3.1 mmol/L (3.5-5.1)
[2018-10-21 23:29] LABS: Albumin Globulin Ratio 1.4 (0.9-2); Bilirubin,Total 1.2 mg/dl (0.2-1); Globulin 2.8 gm/dl (2.5-4.0); Total Protein 6.6 gm/dl (6.4-8.2)
[2018-10-21] MEDS ORDERED: POTASSIUM CHLORIDE 20 MEQ TABCR PO STA (23:34)
[2018-10-21] MEDS ORDERED: ONDANSETRON INJ 2 MG/ML 2 ML VIAL IV STA (23:35)
[2018-10-21] MEDS ORDERED: SODIUM CHLORIDE 0.9% 1000ML 1,000 ML IV ONE (23:49)
--- NOTE | 2018-10-22 00:58 | History & Physical Report ---
Date of Service October 22, 2018 Assessment & Plan (1) YANN (acute kidney injury): BUN=26, Cr=1.9 up from prior value of 1.01. -Calculate FeNa -Check UA -Renal UA -Repeat chemistry in AM -Monitor I/O -IVF -Avoid nephrotoxic agents -Renal dosing where needed Present on Admission?: Yes (2) Hypotension: Patient slightly hypotensive on arrival, improved with IVF -Continue to monitor -Continue Florinef Present on Admission?: Yes (3) Parkinsons disease: Newly diagnosed. Patient was briefly on medications in the past which was discontinued due to abnormal movement -Continue to monitor -Neurology Consultation - appreciate assistance Present on Admission?: Yes (4) GERD (gastroesophageal reflux disease): Chronic. Well controlled -Continue Protonix Present on Admission?: Yes (5) Ataxia: Stable neurologic exam -PT/OT -Fall precautions History of Present Illness Chief Complaint: AMS Primary Care Provider: Nithin Feliciano Lukas Monge is an 83yo C male with history of CVA, HTN, GERD, recently diagnosed PD presenting with somnolence and AMS. Patient states that he woke up this AM and felt fairly normal. He forgot to take his medications. He reports becoming more somnolent and "groggy" during the day. He forgot a scheduled radio call with his friend, also forgot to go to a movie that he was to attend and have dinner. His daughter came to see him and found him to be less c onversant than usual. Also weak, unable to get out of his chair without assistance. He also had an episode where he became cold and clammy, BP at that time 80/40. Patient denies headache, fevers, chills, focal deficit. He is complaining of blurry vision, fatigue, diffuse weakness Daughter reports patient has been displaying cognitive slowing over the last 2 weeks. Also progressive gait instability. ER Course: NSS x 2 liters, Zofran 4mg, KCL 40mEq Allergies Allergy/AdvReac Type Severity Reaction Status Date / Time codeine AdvReac NAUSEA Verified 10/21/18 23:32 Home Medications Home Medications Medication Instructions Recorded Confirmed Type ergocalciferol (vitamin D2) 50,000 units PO WK 06/07/18 10/21/18 History [Vitamin D2] acetaminophen [Tylenol Extra 500 mg PO Q6H PRN 10/21/18 10/21/18 History Strength] aspirin 81 mg PO DAILY 10/21/18 10/21/18 History docusate sodium [Colace] 100 mg PO BID 10/21/18 10/21/18 History fludrocortisone 0.1 mg PO DAILY 10/21/18 10/21/18 History pantoprazole [Protonix] 40 mg PO DAILY 10/21/18 10/21/18 History vitamins A,C,V-yflf-vijubp 1 tab PO DAILY 10/21/18 10/21/18 History [PreserVision AREDS] Past Med/Surg History Medical History Hypertension Anxiety GERD (gastroesophageal reflux disease) Constipation 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 Surgical History History of tonsillectomy Family History Other Coronary heart disease Diabetes Social History Preferred Language: Haitian Communication Ability: Effective Environmental Project Manager Required: No Beliefs That Will Affect Care: None Current Living Situation: Alone Feels Safe at Home: Yes Safety Concerns: Feels Safe At This Time Smoking Status: Never smoker Hx Alcohol Use: No Hx Substance Use: No Review of Systems Review of Systems: All systems reviewed & are unremarkable except as noted in HPI & below Physical Exam Physical Exam: General: patient resting comfortably, NAD, non-toxic in appearance, AA&O x 4 Skin: warm, dry, intact, no rashes or lesions HEENT: NC/AT, PERRL, EOMI, anicteric sclera, conjunctiva without injection, external ear normal to inspection and nontender, nares patent, moist mucus membranes, dentition intact, no oropharyngeal lesions, neck supple, trachea midline, no LAD, no thyromegaly, no JVD Heart: +S1/S2, regular, no m/r/g Lungs: equal air entry bilaterally, no rales/rhonchi/wheezes Abd: +BS, soft, NT/ND, no masses/organomegaly/ascites Ext: warm, 2+ pulses in UE/LE bilaterally, no clubbing/cyanosis or edema Neuro: nonfocal, patient AA&O x 4, speech intact but slow, no facial droop, moving all extremities on command, weakness in LUE and LLE 4/5, RUE/RLE 5/5 Results & Data Vital Signs (Past 12 Hours) Vital Signs Temp Pulse Resp BP Pulse Ox 10/22/18 00:00 82 16 119/61 93 10/21/18 23:14 74 20 101/61 93 10/21/18 23:00 80 15 101/61 94 10/21/18 22:25 95 10/21/18 22:00 81 14 99/52 L 93 10/21/18 21:52 78 15 91/47 L 95 10/21/18 21:50 84 16 99/59 L 94 10/21/18 21:49 74 18 112/66 94 10/21/18 21:45 36.5 C 80 19 101/68 94 Laboratory Results Lab Results 10/21/18 10/21/18 Range/Units 22:57 22:57 WBC 7.63 (4.8-10.8) K/uL RBC 4.33 L (4.7-6.1) M/uL Hgb 13.7 L (14.0-18.0) g/dL Hct 39.6 L (42-52) % MCV 91.5 (80-100) fL MCH 31.6 (25-34) pg MCHC 34.6 (32-36) g/dL RDW Std Deviation 40.7 (36.4-46.3) fL RDW Coeff of Jennifer 12.1 (11.5-14.5) % Plt Count 250 (130-400) K/uL MPV 9.4 (7.4-10.4) fL Immature Gran % (Auto) 0.3 % Neut % (Auto) 68.8 % Lymph % (Auto) 16.3 % [place] % (Auto) 14.2 % Eos % (Auto) 0.1 % Baso % (Auto) 0.3 % Immature Gran # (Auto) 0.02 (0.00-0.02) K/uL Neut # (Auto) 5.26 (1.4-6.5) K/uL Lymph # (Auto) 1.24 (1.2-3.4) K/uL [place] # (Auto) 1.08 H (0.11-0.59) K/uL Eos # (Auto) 0.01 (0-0.5) K/uL Baso # (Auto) 0.02 (0-0.2) K/uL Sodium 142 (136-145) mmol/L Potassium 3.1 L (3.5-5.1) mmol/L Chloride 101 (98-107) mmol/L Carbon Dioxide 27 (21-32) mmol/L Anion Gap 14.0 H (3-11) BUN 26 H (7-18) mg/dl Creatinine 1.90 H (0.6-1.4) mg/dl Est Cr Clr Drug Dosing 29.5 ml/min Est GFR ( Amer) 37.0 Est GFR (Non-Af Amer) 31.9 BUN/Creatinine Ratio 13.7 (10-20) Glucose 115 H (70-99) mg/dl Calcium 9.1 (8.5-10.1) mg/dl Phosphorus 4.1 (2.5-4.9) mg/dl Magnesium 2.0 (1.8-2.4) mg/dl Total Bilirubin 1.2 H (0.2-1) mg/dl AST 20 (15-37) U/L ALT 11 L (12-78) U/L Alkaline Phosphatase 61 (45-117) U/L Total Creatine Kinase 89 (39-308) U/L Total Protein 6.6 (6.4-8.2) gm/dl Albumin 3.8 (3.4-5.0) gm/dl Globulin 2.8 (2.5-4.0) gm/dl Albumin/Globulin Ratio 1.4 (0.9-2) TSH 1.600 (0.300-4.500) uIu/ml Diagnostic Findings XR chest 1V portable HISTORY: weakness COMPARISON: Chest 06/07/2018. FINDINGS: Calcified granuloma within the right lung base is again noted. There is a tortuous thoracic aorta, unchanged. The heart is stable in size. A few small linear scarlike densities at the left lung bases remain unchanged. No new focal lung consolidations to suggest pneumonia. No evidence for pulmonary edema. No pleural effusions. No pneumothorax. IMPRESSION: No significant change compared to the prior study. No acute process. Electronically signed by: Surya Balderrama M.D. 10/21/2018 10:44 PM Dictated: 10/21/182243 Transcribed: 10/21/182243 CT Head - no acute intracranial process. Involutional changes with small vessel disease. Prominent bifrontal CSF spaces. Cataract surgery Code Status & VTE Plan Code Status full PG Care Time/CCT Total # of Minutes Spent Total Time Spent with Patient: Total time spent is greater than 50% in coordination of care (as documented) at patient's floor/unit and/or counseling patient: (1) Hypotension Hypotension type: orthostatic hypotension Qualified Code(s): I95.1 - Orthostatic hypotension (2) GERD (gastroesophageal reflux disease) Esophagitis presence: esophagitis presence not specified Qualified Code(s): K21.9 - Gastro-esophageal reflux disease without esophagitis
--- NOTE | 2018-10-22 02:01 | Emergency Department Note ---
Entered by Mihir Philip acting as a scribe for History of Present Illness General Chief complaint: Illness Time Seen by Provider: 10/21/18 22:08 Source: patient and family History of Present Illness Onset (ago): month(s) 5 Location: left (side) Pain Consistency: + intermittent Quality: + other (weakness) Associated symptoms: + denies other symptoms (abdominal pain) The patient is an 83 y/o male who presents to the ED w/ CC of intermittent weakness to his left side beginning 5 months ago. The patient states his symptoms started with a loss of balance and fall in May. He reports he was told he had a mild stroke, and since this time he has had intermittent weakness of his left side. The patient notes he was also told he has Parkinson's. He states he lives at the [facility] and has air conditioning. The patient reports he has good day and bad days. He notes some days he just lacks energy and then other days he has his additional left sided weakness. He denies abdominal pain. The patient's daughter states he could not move or get out of his chair this evening. She reports he forgot to take his salt pill this morning to raise his blood pressure, so she had him take it at 7pm. The [place]. Home Medications Home Medications Medication Instructions Recorded Confirmed Type ergocalciferol (vitamin D2) 50,000 units PO WK 06/07/18 10/21/18 History [Vitamin D2] acetaminophen [Tylenol Extra 500 mg PO Q6H PRN 10/21/18 10/21/18 History Strength] aspirin 81 mg PO DAILY 10/21/18 10/21/18 History docusate sodium [Colace] 100 mg PO BID 10/21/18 10/21/18 History fludrocortisone 0.1 mg PO DAILY 10/21/18 10/21/18 History pantoprazole [Protonix] 40 mg PO DAILY 10/21/18 10/21/18 History vitamins A,C,D-dlsn-vlqkcq 1 tab PO DAILY 10/21/18 10/21/18 History [PreserVision AREDS] Allergies Allergy/AdvReac Type Severity Reaction Status Date / Time codeine AdvReac NAUSEA Verified 10/21/18 23:32 Past Med/Surg History Medical History Hypertension Anxiety GERD (gastroesophageal reflux disease) Constipation Surgical History No pertinent past surgical history Family History Other No pertinent family history Social History Preferred Language: Indonesian Communication Ability: Effective Health Center Assistant Required: No Beliefs That Will Affect Care: None Current Living Situation: Alone Feels Safe at Home: Yes Safety Concerns: Feels Safe At This Time Smoking Status: Never smoker Hx Alcohol Use: No Hx Substance Use: No Review of Systems See HPI for pertinent positives & negatives. and A total of 10 systems reviewed and were otherwise negative Physical Exam Vital Signs Vital Signs - 24 hr 10/21/18 21:45 10/21/18 21:49 10/21/18 21:50 Temperature 36.5 C Temperature Source Oral Sepsis Recent Fever Within 48 Hours No Sepsis New/Unexplained Change in Mental Status No Sepsis Action Taken by Nursing No Action Required Pulse Rate - Lying 76 Pulse Rate - Sitting 82 Pulse Rate - Standing 85 Pulse Rate 80 74 84 Pulse Rate from SpO2 Sensor 80 74 84 Respiratory Rate 19 18 16 Blood Pressure - Lying 112/66 Blood Pressure - Sitting 99/59 L Blood Pressure- Standing 91/47 L Blood Pressure 101/68 112/66 99/59 L Blood Pressure Mean 79 81 72 Blood Pressure Position Sitting Pulse Oximetry 94 94 94 Oxygen Delivery Method Room Air 10/21/18 21:52 10/21/18 22:00 10/21/18 22:25 Temperature Temperature Source Sepsis Recent Fever Within 48 Hours Sepsis New/Unexplained Change in Mental Status Sepsis Action Taken by Nursing Pulse Rate - Lying Pulse Rate - Sitting Pulse Rate - Standing Pulse Rate 78 81 Pulse Rate from SpO2 Sensor 78 79 Respiratory Rate 15 14 Blood Pressure - Lying Blood Pressure - Sitting Blood Pressure- Standing Blood Pressure 91/47 L 99/52 L Blood Pressure Mean 61 67 Blood Pressure Position Pulse Oximetry 95 93 95 Oxygen Delivery Method Room Air 10/21/18 23:00 10/21/18 23:14 10/22/18 00:00 Temperature Temperature Source Sepsis Recent Fever Within 48 Hours Sepsis New/Unexplained Change in Mental Status Sepsis Action Taken by Nursing Pulse Rate - Lying Pulse Rate - Sitting Pulse Rate - Standing Pulse Rate 80 74 82 Pulse Rate from SpO2 Sensor 81 69 82 Respiratory Rate 15 20 16 Blood Pressure - Lying Blood Pressure - Sitting Blood Pressure- Standing Blood Pressure 101/61 101/61 119/61 Blood Pressure Mean 74 74 80 Blood Pressure Position Pulse Oximetry 94 93 93 Oxygen Delivery Method Room Air 10/22/18 01:00 10/22/18 01:47 Temperature Temperature Source Sepsis Recent Fever Within 48 Hours Sepsis New/Unexplained Change in Mental Status Sepsis Action Taken by Nursing Pulse Rate - Lying Pulse Rate - Sitting Pulse Rate - Standing Pulse Rate 79 58 L Pulse Rate from SpO2 Sensor Respiratory Rate 13 14 Blood Pressure - Lying Blood Pressure - Sitting Blood Pressure- Standing Blood Pressure 121/61 111/54 L Blood Pressure Mean 81 Blood Pressure Position Pulse Oximetry 94 95 Oxygen Delivery Method Room Air Room Air GENERAL: Awake, alert, dehydrated-appearing, in no acute distress HENT: Normocephalic, atraumatic. Oropharynx has dry mucous membranes. EYES: Normal conjunctiva. Sclera non-icteric. NECK: Supple. No nuchal rigidity. FROM. No JVD. RESPIRATORY: Clear to auscultation. CARDIAC: Regular rate, normal rhythm. Extremities warm and well perfused. Pulses equal. ABDOMEN: Soft, non-distended. No tenderness to palpation. No rebound or guarding. No masses. RECTAL: Deferred. MUSCULOSKELETAL: Chest examination reveals no tenderness. The back is symmetrical on inspection without obvious abnormality. There is no CVA tenderness to palpation. No joint edema. LOWER EXTREMITIES: Calves are equal size bilaterally and non-tender. No edema. No discoloration. NEURO: Normal sensorium. No sensory or motor deficits noted. SKIN: No rash or jaundice noted. Course 2217: Past medical records reviewed. The patient was evaluated in room B07. A complete history and physical exam was performed. 2357: Upon reevaluation, I discussed findings and results with the patient and his . They verbalized agreement of the treatment plan. 0002: I spoke with Dr. Cedeño of the [facility] Hospitalist Service. The patient will be evaluated for further management and care. Administered Medications Discontinued Medications Sodium Chloride (Nss 1000ml) 1,000 mls @ 999 mls/hr IV .Q1H1M VIOLET Stop: 10/21/18 23:30 Last Infusion: 10/22/18 00:06 Dose: 0 mls/hr Documented by: [id number] Admin: 10/21/18 23:13 Dose: 999 mls/hr Documented by: [id number] Sodium Chloride (Nss 1000ml) 1,000 mls @ 999 mls/hr IV .Q1H1M ONE Stop: 10/22/18 00:49 Last Infusion: 10/22/18 01:16 Dose: 0 mls/hr Documented by: [id number] Admin: 10/22/18 00:06 Dose: 999 mls/hr Documented by: [id number] Ondansetron HCl (Zofran) 4 mg IV NOW STA Stop: 10/21/18 23:36 Last Admin: 10/22/18 01:16 Dose: Not Given Documented by: [id number] Potassium Chloride (Klor-Con M20) 40 meq PO NOW STA Stop: 10/21/18 23:35 Last Admin: 10/22/18 00:07 Dose: 40 meq Documented by: [id number] Medical Decision Making Differential Diagnosis Differential Diagnosis includes but is not limited to dehydration, stroke, anemia, hypoglycemia, hyponatremia, hypernatremia, urinary tract infection, pneumonia, bronchitis, sepsis, gastroenteritis, additional abdominal pathology, metabolic abnormalities and infections. Medical Records Attestation: I reviewed the patient's medical records. Home Medications Current Medication List: was personally reviewed by me Laboratory Data Attestation: I reviewed the patient's lab results. Result diagrams: 10/21/18 22:57 10/21/18 22:57 Lab Results 10/21/18 10/21/18 Range/Units 22:57 22:57 WBC 7.63 (4.8-10.8) K/uL RBC 4.33 L (4.7-6.1) M/uL Hgb 13.7 L (14.0-18.0) g/dL Hct 39.6 L (42-52) % MCV 91.5 (80-100) fL MCH 31.6 (25-34) pg MCHC 34.6 (32-36) g/dL RDW Std Deviation 40.7 (36.4-46.3) fL RDW Coeff of Jennifer 12.1 (11.5-14.5) % Plt Count 250 (130-400) K/uL MPV 9.4 (7.4-10.4) fL Immature Gran % (Auto) 0.3 % Neut % (Auto) 68.8 % Lymph % (Auto) 16.3 % [place] % (Auto) 14.2 % Eos % (Auto) 0.1 % Baso % (Auto) 0.3 % Immature Gran # (Auto) 0.02 (0.00-0.02) K/uL Neut # (Auto) 5.26 (1.4-6.5) K/uL Lymph # (Auto) 1.24 (1.2-3.4) K/uL [place] # (Auto) 1.08 H (0.11-0.59) K/uL Eos # (Auto) 0.01 (0-0.5) K/uL Baso # (Auto) 0.02 (0-0.2) K/uL Sodium 142 (136-145) mmol/L Potassium 3.1 L (3.5-5.1) mmol/L Chloride 101 (98-107) mmol/L Carbon Dioxide 27 (21-32) mmol/L Anion Gap 14.0 H (3-11) BUN 26 H (7-18) mg/dl Creatinine 1.90 H (0.6-1.4) mg/dl Est Cr Clr Drug Dosing 29.5 ml/min Est GFR ( Amer) 37.0 Est GFR (Non-Af Amer) 31.9 BUN/Creatinine Ratio 13.7 (10-20) Glucose 115 H (70-99) mg/dl Calcium 9.1 (8.5-10.1) mg/dl Magnesium 2.0 (1.8-2.4) mg/dl Total Bilirubin 1.2 H (0.2-1) mg/dl AST 20 (15-37) U/L ALT 11 L (12-78) U/L Alkaline Phosphatase 61 (45-117) U/L Total Creatine Kinase 89 (39-308) U/L Total Protein 6.6 (6.4-8.2) gm/dl Albumin 3.8 (3.4-5.0) gm/dl Globulin 2.8 (2.5-4.0) gm/dl Albumin/Globulin Ratio 1.4 (0.9-2) Imaging Data Radiologist's Impression: Radiology results as stated below per my review and the radiologist's interpretation: XR chest 1V portable HISTORY: weakness COMPARISON: Chest 06/07/2018. FINDINGS: Calcified granuloma within the right lung base is again noted. There is a tortuous thoracic aorta, unchanged. The heart is stable in size. A few small linear scarlike densities at the left lung bases remain unchanged. No new focal lung consolidations to suggest pneumonia. No evidence for pulmonary edema. No pleural effusions. No pneumothorax. IMPRESSION: No significant change compared to the prior study. No acute process. Electronically signed by: Surya Balderrama M.D. 10/21/2018 10:44 PM Radiology results as stated below per my review and the [facility] radiologist's interpretation: CT HEAD: No acute intracranial process. Involutional changes with small vessel disease. Prominent bifrontal CSF spaces Cataract surgery. Radiologist: Gabby Neil M.D. Study ready at 23:41 and initial results transmitted at 23:44 ECG Data Attestation: I personally reviewed and interpreted this ECG as follows: Indication: weakness Rate (beats per minute): 73 Rhythm: normal sinus Findings: + RBBB; no ST depression and no ST elevation Comparison ECG Date: from (06/07/18) Change: no significant change Blood Pressure Blood Pressure Findings: Normal blood pressure Blood Pressure Disposition: did not require urgent referral MDM Narrative This is a 83-year-old who presents to the emergency department complaining of weakness and hypotension. The patient was found to be orthostatic hypotensive by nursing when he arrived. He was given a normal saline bolus x2 here in the emergency department. His potassium was found to be 3.1 and it was repleted here. He was also given Zofran for nausea. The patient's creatinine was found to be grossly elevated because of this I did discuss the case with the hospitalist service who agreed to admit the patient. Patient and family were in agreement with the treatment plan. Impression & Plan Hypotension, Parkinsons disease, Acute dehydration, Acute hypokalemia Discharge Plan Visit Data Chief Complaint: Illness ED Provider: Hany Nelson Discharge Problem: Hypotension, Parkinsons disease, Acute dehydration, Acute hypokalemia Patient Disposition: Being Evaluated by Hospitalist Discharge Instructions Interventions: ED Discharge Assessment Last Done: 10/22/18 01:47 The scribe's documentation has been prepared under my direction and personally reviewed by me in its entirety. I confirm that the note above accurately reflects all work, treatment, procedures, and medical decision making performed by me.
[2018-10-22] MEDS: LACTATED RINGER'S 1,000 ML IV SCH ×3 (02:27→23:28)
[2018-10-22 02:38] LABS: Phosphorus 4.1 mg/dl (2.5-4.9); Thyroid Stimulating Hormone 1.6 uIu/ml (0.300-4.500)
--- NOTE | 2018-10-22 05:56 | CT Scan Report ---
CT head/brain wo con CT DOSE: 651.12 mGy.cm HISTORY: Mental status change Pt c/o left sided weakness TECHNIQUE: Multiaxial CT images of the head were performed without the use of intravenous contrast. A dose lowering technique was utilized adhering to the principles of ALARA. Comparison: None. Findings: The paranasal sinuses and mastoid air cells are clear. The calvarium and skull base are int act. The ventricles and sulci are within normal limits. There is no mass, hematoma, midline shift, or acute infarct. There are findings of prominent CSF spaces over the frontal convexity regions. 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 Mild chronic small vessel change of aging is present. Impression: No acute intracranial abnormality. Chronic change. The above report was generated using voice recognition software. It may contain grammatical, syntax or spelling errors. Electronically signed by: Rene Jones M.D. 10/22/2018 5:55 AM
[2018-10-22 06:04] LABS: Appearance Urine Clear (Clear); Blood Urine Negative (Negative); Color Urine Dark Yellow; Glucose Urine UA Negative (Negative); Ketones Urine 1+ (Negative); Leukocyte Esterase Urine Trace (Negative); Nitrite Urine Positive (Negative); Protein Urine 1+ (Negative); RBC Urine Automated 0-4 /hpf (0-4); Specific Gravity Urine 1.024 (1.000-1.030); Urobilinogen Urine Negative (Negative)
[2018-10-22 06:10] LABS: Bilirubin Urine Negative (Negative); Ictotest Urine Negative (Negative)
[2018-10-22 06:21] LABS: Mucus Urine Present (None Prsent)
[2018-10-22 06:22] LABS: Calcium Oxalate Crystals Urine Present (None Prsent); Cast Urine Automated >30 /lpf (0-5)
[2018-10-22 06:23] LABS: Bacteria Urine Automated 1+ (Negative)
--- NOTE | 2018-10-22 08:00 | Ultrasound Report ---
US renal/blad retro comp CLINICAL HISTORY: 83 years-old Male presenting with YANN. TECHNIQUE: Real-time grayscale and limited color Doppler ultrasound imaging of the kidneys and bladde r was performed. COMPARISON: 07/20/2009. FINDINGS: Right kidney: Normal echogenicity of renal parenchyma though cortical thinning is suggested. Right ki dney measures 10.0 cm. No hydronephrosis. No convincing evidence of calculus or mass. Left kidney: Normal echogenicity of renal parenchyma though cortical thinning is suggested. Left kidn ey measures 12.4 cm. No hydronephrosis. No convincing evidence of calculus or mass. Bladder: Normal. Bilateral ureteral jets present. Other: None. IMPRESSION: 1. Slight atrophy of the renal parenchyma. No obstruction. Electronically signed by: Frank Sherwood M.D. 10/22/2018 7:59 AM
[2018-10-22] MEDS: PANTOprazole 40 MG TAB PO SCH (08:41)
[2018-10-22] MEDS: DOCUSATE SODIUM 100 MG CAP PO SCH ×2 (08:41→21:06)
[2018-10-22] MEDS: ASPIRIN 81 MG ECTAB PO SCH (08:41)
[2018-10-22] MEDS: FLUDROCORTISONE ACETATE 0.1 MG TAB PO SCH (10:00)
[2018-10-22] MEDS: cefTRIAXone SODIUM 2,000 MG in DEXTROSE 5% 50 ML IV SCH (11:03)
[2018-10-22 11:22] LABS: BUN Creatinine Ratio 20.3 (10-20); Calcium 8.3 mg/dl (8.5-10.1); Creatinine Clr Calc Pharmacy 42.7 ml/min; Est GFR (African American) 57.9; Potassium 3.5 mmol/L (3.5-5.1)
--- NOTE | 2018-10-22 12:20 | Neurology Consultation ---
Date of Consultation October 22, 2018 Assessment & Plan (1) Acute encephalopathy: (2) Parkinsons disease: (3) Cerebrovascular accident: (4) Hypotension: Patient has some acute cognitive and confusion issues November 21. He seems improved and stable today although he still has some foggy thinking. Neurologic examination is remarkable for some left-sided weakness as well as some left greater than right cogwheel rigidity, and diffuse bradykinesia/masked face. He has no meningeal signs and cognitively is fairly good today. Overall his exam is consistent with Parkinson's disease. He probably has a urinary tract infection to explain his acute confusion. 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 He still has some residual weakness from this. Was he is stable on [address] scan of the head showed no acute changes. Patient has issues with hypotension. Recommendations: 1. I would be hesitant to put him on any anti parkinsonian medication at this time with his recent acute confusion. This could be done as an outpatient. 2. Treat urinary tract infection as you are doing. 3. Physical therapy to help with motor strength and gait training. 4. Patient apparently drinks more alcohol on a daily basis that has been suggested in chart. He needs to think about decreasing this considerably. 5. Therefore I do not think there is any need for additional neurologic testing at this time however an MRI of the brain could be considered comma to compared to previous study. This also could be done as an outpatient. 6. Patient will follow up with Dr. Rodriguez. Overall, I spent a total of 75 minutes with this case including review of records, direct evaluation the patient at bedside, discussion of the case with the patient bedside, nursing staff at bedside, and Dr. Patino, including differential diagnosis and treatment options. History of Present Illness Reason for Consultation: Patient is an 83-year-old, who I was asked to see at the request of Dr. Cedeño, for neurologic consultation regarding acute confusion and Parkinson's. Requesting Physician: Dr. Cedeño Attending Physician: Lavell Patino History of Present Illness I 1st saw this patient in May of 2018 when he was admitted with hypertension and left michael paresis. He had a small acute right basal ganglion infarct. He had other mild old small vessel ischemic disease on his MRI likely secondary to his hypertension. At the time, we thought he had probable parkinsonism due to stiffness and slowness of his left side compared to the right. He did not have a rest tremor. He had been given low-dose Sinemet but gave him significant cramps and hypotension so this was stopped. He has not been on an anti parkinsonian medicine since. He last saw Dr. Rodriguez as an outpatient in July of 2018. Patient was having issues with hypotension. Physical therapy helped him. Over the last couple of months he has had issues walking and continues to have left-sided stiffness and slowness. He does not fall. He feels his left side is still weak compared to the right and has not recovered from his stroke. He says he will shuffle when he walks. He currently lives at the [facility] and over the last couple of weeks has had some cognitive issues. This was much more prominent October 21 when he was much more forgetful than usual. He did not have a fever, dizziness, new weakness or numbness, vision, or speech problem but he did feel foggy with his thinking. He ride to the emergency room October 21 at 2145 hours with a temperature 36.5, pulse 80, respiratory rate 17, blood pressure 101/68, and O2 saturation 94%. Exam was nonfocal and he had no meningeal signs. There was no obvious encephalopathy. His gait was poor. CBC and Chem profile were unremarkable except for an elevated BUN and creatinine and mildly elevated glucose. Urinalysis was suspicious for urinary tract infection, but culture is pending. CT scan of the head was unremarkable. Chest x-ray was unremarkable. Nurse reports no new events overnight and he feels about the same and has had with his fogginess. He denies pain or headaches or other issues. Blood pressure is 122/67 this morning. BUN was 27 and creatinine 1.3. TSH and CK were unremarkable. Allergies Allergy/AdvReac Type Severity Reaction Status Date / Time codeine AdvReac NAUSEA Verified 10/21/18 23:32 Home Medications Home Medications Medication Instructions Recorded Confirmed Type ergocalciferol (vitamin D2) 50,000 units PO WK 06/07/18 10/21/18 History [Vitamin D2] acetaminophen [Tylenol Extra 500 mg PO Q6H PRN 10/21/18 10/21/18 History Strength] aspirin 81 mg PO DAILY 10/21/18 10/21/18 History docusate sodium [Colace] 100 mg PO BID 10/21/18 10/21/18 History fludrocortisone 0.1 mg PO DAILY 10/21/18 10/21/18 History pantoprazole [Protonix] 40 mg PO DAILY 10/21/18 10/21/18 History vitamins A,C,H-udyn-ozdahw 1 tab PO DAILY 10/21/18 10/21/18 History [PreserVision AREDS] Patient History Medical History Hypertension Anxiety GERD (gastroesophageal reflux disease) Constipation 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 [employer] Feels Safe at Home: Yes Safety Concerns: Feels Safe At This Time Smoking Status: Former smoker Age Quit Using Tobacco: 74 ; Hx Alcohol Use: Yes (Two or 3 small burbons per day for many years) Alcohol type: hard liquor Hx Substance Use: No Review of Systems Constitutional: + fatigue and + weakness; no fever Eyes: no diplopia, no eye pain and no worsening vision Ear, Nose, Mouth, Throat: + hearing loss; no ear pain, no tinnitus, no dizziness, no snoring, no hoarseness and no dysphagia Respiratory: no cough and no dyspnea Cardiovascular: no chest pain, no palpitations and no lightheadedness Gastrointestinal: no abdominal pain, no nausea and no vomiting Genitourinary: no dysuria and no urinary incontinence Musculoskeletal: no back pain, no neck pain, no radicular pain, no joint pain and no myalgia Integumentary: no rash and no lesions Neurologic: + gait abnormality, + localized weakness and + tremor(s); no generalized weakness, no tingling, no numbness, no abnormal movements, no headache(s), no abnormal speech, no confusion and no memory loss Psychiatric: no depression, no irritability, no anxiety, no difficulty concentrating, no confusion and no hallucinations Endocrine: + fatigue; no flushing Hematologic / Lymphatic: no easy bleeding and no easy bruising Allergy / Immunological: no urticaria and no problem reported Physical Exam Physical Exam: The patient is right-handed. The patient is awake, alert, and attentive. Speech is normal without any aphasia or dysarthria. he can name objects, repeat phrases, and has normal spontaneous speech. Mentation and thought processes are intact, with orientation to person, place and time, and normal fund of knowledge. Attention and concentration are normal. Mood and affect are normal and appropriate. General appearance and grooming are normal. Short and long-term memory are intact to conversation. He has a blank/masked face with decreased blink rate. There is no glabellar sign. The discs are sharp with positive venous pulsations bilaterally. There are no exudates, hemorrhages, or blood vessel changes seen. Pupils are 3 mm bilaterally and reactive to light. Extraocular eye muscles are intact without nystagmus. Visual acuity and visual brown seem normal grossly to confrontation. There are no deficits to sensation in the face in all 3 distributions of the fifth cranial nerve bilaterally. Corneal reflexes are positive bilaterally. Facial strength and symmetry was normal bilaterally. Hearing seems mildly decreased bilaterally. Palate moves well without asymmetry. There is normal sternocleidomastoid and trapezius (shoulder shrug) strength bilaterally. Tongue is midline with good strength bilaterally. Neck has a full range of motion without discomfort. There are no cervical bruits bilaterally. There are no cranial or ocular bruits. Heart is without murmur. There is a regular rhythm and rate. Cervical, thoracic, and lumbar spine are nontender to palpation. Gait is is poor, tentative, and shuffling. Stance is unstable also. He needs assistance. With outstretched arms there is no drift. There are no resting tremors. There is no ataxia with finger to nose testing. I note a mild left postural and action tremor not present on the right. There is reasonable facility in the hands. No other abnormal involuntary movements are noted. Motor strength is 4/5 diffusely in the left upper extremity including deltoids, biceps, triceps, brachioradialis, wrist flexors and extensors, inspector balance wheel motion, and intrinsic hand muscles. Right upper extremity is 5/5 diffusely. Motor strength is 5/5 diffusely in the legs bilaterally including hip flexors, quadriceps, hamstrings, gastrocnemius, tibialis anterior, tibialis posterior, and [place] muscles. Toe extensors are normal and there is good bulk in the extensor digitorum brevis muscles bilaterally. The limbs have increased tone left greater than right side diffusely consistent with cogwheel rigidity. There is no atrophy noted in the muscles. Muscle bulk is normal, there is no tenderness to palpation, no myotonia to percussion, and no fasciculations seen. Sensory examination is intact to touch and pin throughout all 4 limbs diffusely. Reflexes are 2/4 in the biceps, triceps, brachioradialis, and quadriceps tendons bilaterally. Achilles tendon reflexes are absent bilaterally. There is no clonus bilaterally. Toes are downgoing with plantar stimulation bilaterally. Peripheral pulses are present and of normal quality distally in all 4 limbs. There is no peripheral edema noted in the limbs. Results & Data Vital Signs (Past 12 Hours) Vital Signs Temp Pulse Pulse Resp BP BP BP 10/22/18 09:47 122/67 10/22/18 08:13 206/84 H 10/22/18 08:11 208/82 H 10/22/18 08:05 36.8 C 60 16 204/79 H 10/22/18 02:09 36.8 C 62 16 164/66 H 10/22/18 01:47 58 L 14 111/54 L 10/22/18 01:00 79 13 121/61 Pulse Ox 10/22/18 09:47 10/22/18 08:13 10/22/18 08:11 10/22/18 08:05 94 10/22/18 02:09 96 10/22/18 01:47 95 10/22/18 01:00 94 PG Care Time/CCT Total # of Minutes Spent Total Time Spent with Patient: 75min Total time spent is greater than 50% in coordination of care (as documented) at patient's floor/unit and/or counseling patient: (1) Cerebrovascular accident CVA mechanism: unspecified Qualified Code(s): I63.9 - Cerebral infarction, unspecified (2) Hypotension Hypotension type: orthostatic hypotension Qualified Code(s): I95.1 - Orthostatic hypotension
--- NOTE | 2018-10-22 20:59 | Hospitalist Progress Note ---
Date of Service October 22, 2018 Assessment & Plan (1) UTI (urinary tract infection): suspected cause of presentation. start rocephin 2 gm daily. follow culture. cont IV fluids. has calcium oxalate crystals on u/a - consider CT to r/o stones but renal u/s without hydronephrosis which would argue against an obstructing stone. (2) Acute encephalopathy: likely due to UTI. supportive care, abx, etc avoid benzos if possible and other sedatives (3) YANN (acute kidney injury): improving with hydration. cont IV fluids. repeat BMP am. needs PT/OT evals. appreciate neuro eval - nothing neurologically to do at this time. left message for daughter evening of 10/22/18. Subjective patient reports fatigue but otherwise no complaints. poor historian and mildly confused during my visit. Physical Exam Constitutional: no acute distress masked facies from parkinson's ENMT: external ear and nose normal, oropharynx normal Respiratory: normal respiratory effort, lungs clear to auscultation Cardiovascular: Rate/Rhythm: regular rate and regular rhythm Heart Sounds: normal S1 and normal S2; no murmur Vessels: posterior tibial pulses present and dorsalis pedis pulses present; no JVD Extremities: no edema Gastrointestinal (Abdomen): normal bowel sounds, soft, nontender, no hepatosplenomegaly no flank tenderness to palpation Neurologic: rigidity of extremities Results & Data Vital Signs (Past 12 Hours) Vital Signs BP Pulse Ox 10/22/18 15:40 94 10/22/18 09:47 122/67 Laboratory Results Laboratory Results - last 24 hr 10/21/18 10/21/18 10/22/18 22:57 22:57 05:50 WBC 7.63 RBC 4.33 L Hgb 13.7 L Hct 39.6 L MCV 91.5 MCH 31.6 MCHC 34.6 RDW Std Deviation 40.7 RDW Coeff of Jennifer 12.1 Plt Count 250 MPV 9.4 Immature Gran % (Auto) 0.3 Neut % (Auto) 68.8 Lymph % (Auto) 16.3 [place] % (Auto) 14.2 Eos % (Auto) 0.1 Baso % (Auto) 0.3 Immature Gran # (Auto) 0.02 Neut # (Auto) 5.26 Lymph # (Auto) 1.24 [place] # (Auto) 1.08 H Eos # (Auto) 0.01 Baso # (Auto) 0.02 Sodium 142 Potassium 3.1 L Chloride 101 Carbon Dioxide 27 Anion Gap 14.0 H BUN 26 H Creatinine 1.90 H Est Cr Clr Drug Dosing 29.5 Est GFR ( Amer) 37.0 Est GFR (Non-Af Amer) 31.9 BUN/Creatinine Ratio 13.7 Glucose 115 H Calcium 9.1 Phosphorus 4.1 Magnesium 2.0 Total Bilirubin 1.2 H AST 20 ALT 11 L Alkaline Phosphatase 61 Ammonia Total Creatine Kinase 89 Total Protein 6.6 Albumin 3.8 Globulin 2.8 Albumin/Globulin Ratio 1.4 TSH 1.600 Urine Color Dark Yellow Urine Appearance Clear Urine pH 5.0 Ur Specific [place] 1.024 Urine Protein 1+ H Urine Glucose (UA) Negative Urine Ketones 1+ H Urine Blood Negative Urine Nitrite Positive A Urine Bilirubin Negative Urine Urobilinogen Negative Ur Leukocyte Esterase Trace H Urine WBC (Auto) 1-5 Urine RBC (Auto) 0-4 U Hyaline Cast (Auto) >30 H U Epithel Cells (Auto) 10-20 H Urine Bacteria (Auto) 1+ H Calcium Oxalate Crystal Present A Granular Casts 1-5 H Urine Mucus Present A Ur Random Creatinine Ur Random Sodium 10/22/18 10/22/18 10/22/18 05:50 05:50 07:14 WBC RBC Hgb Hct MCV MCH MCHC RDW Std Deviation RDW Coeff of Jennifer Plt Count MPV Immature Gran % (Auto) Neut % (Auto) Lymph % (Auto) [place] % (Auto) Eos % (Auto) Baso % (Auto) Immature Gran # (Auto) Neut # (Auto) Lymph # (Auto) [place] # (Auto) Eos # (Auto) Baso # (Auto) Sodium Potassium Chloride Carbon Dioxide Anion Gap BUN Creatinine Est Cr Clr Drug Dosing Est GFR ( Amer) Est GFR (Non-Af Amer) BUN/Creatinine Ratio Glucose Calcium Phosphorus Magnesium Total Bilirubin AST ALT Alkaline Phosphatase Ammonia < 10.0 L Total Creatine Kinase Total Protein Albumin Globulin Albumin/Globulin Ratio TSH Urine Color Urine Appearance Urine pH Ur Specific [place] Urine Protein Urine Glucose (UA) Urine Ketones Urine Blood Urine Nitrite Urine Bilirubin Urine Urobilinogen Ur Leukocyte Esterase Urine WBC (Auto) Urine RBC (Auto) U Hyaline Cast (Auto) U Epithel Cells (Auto) Urine Bacteria (Auto) Calcium Oxalate Crystal Granular Casts Urine Mucus Ur Random Creatinine Cancelled 291.0 Ur Random Sodium 55 10/22/18 07:15 WBC RBC Hgb Hct MCV MCH MCHC RDW Std Deviation RDW Coeff of Jennifer Plt Count MPV Immature Gran % (Auto) Neut % (Auto) Lymph % (Auto) [place] % (Auto) Eos % (Auto) Baso % (Auto) Immature Gran # (Auto) Neut # (Auto) Lymph # (Auto) [place] # (Auto) Eos # (Auto) Baso # (Auto) Sodium 140 Potassium 3.5 Chloride 105 Carbon Dioxide 28 Anion Gap 7.0 BUN 27 H Creatinine 1.31 D Est Cr Clr Drug Dosing 42.7 Est GFR ( Amer) 57.9 Est GFR (Non-Af Amer) 50.0 BUN/Creatinine Ratio 20.3 H Glucose 96 Calcium 8.3 L Phosphorus Magnesium Total Bilirubin AST ALT Alkaline Phosphatase Ammonia Total Creatine Kinase Total Protein Albumin Globulin Albumin/Globulin Ratio TSH Urine Color Urine Appearance Urine pH Ur Specific [place] Urine Protein Urine Glucose (UA) Urine Ketones Urine Blood Urine Nitrite Urine Bilirubin Urine Urobilinogen Ur Leukocyte Esterase Urine WBC (Auto) Urine RBC (Auto) U Hyaline Cast (Auto) U Epithel Cells (Auto) Urine Bacteria (Auto) Calcium Oxalate Crystal Granular Casts Urine Mucus Ur Random Creatinine Ur Random Sodium PG Care Time/CCT Total # of Minutes Spent Total Time Spent with Patient: Total time spent is greater than 50% in coordination of care (as documented) at patient's floor/unit and/or counseling patient: (1) UTI (urinary tract infection) Urinary tract infection type: acute cystitis Hematuria presence: without hematuria Qualified Code(s): N30.00 - Acute cystitis without hematuria
[2018-10-23] MEDS: ACETAMINOPHEN 500 MG TAB PO PRN ×4 (01:08→20:41)
[2018-10-23 07:57] LABS: Basophils # (auto) 0.02 K/uL (0-0.2); Basophils % (auto) 0.4 %; Eosinophils # (auto) 0.09 K/uL (0-0.5); Eosinophils % (auto) 1.6 %; Hematocrit (blood only) 37.1 % (42-52); Hemoglobin 12.9 g/dL (14.0-18.0); Immature Granulocytes # (auto) 0.01 K/uL (0.00-0.02); Immature Granulocytes % (auto) 0.2 %; Lymphocytes # (auto) 0.89 K/uL (1.2-3.4); Lymphocytes % (auto) 15.8 %; Mean Corpuscular Hgb Conc 34.8 g/dL (32-36); Mean Corpuscular Volume 92.1 fL (80-100); Mean Platelet Volume 9.7 fL (7.4-10.4); Monocytes # (auto) 0.62 K/uL (0.11-0.59); Neutrophils # (auto) 4.02 K/uL (1.4-6.5); Platelet Count 175 K/uL (130-400); RDW Standard Deviation 40.9 fL (36.4-46.3); Red Blood Count 4.03 M/uL (4.7-6.1); White Blood Count 5.65 K/uL (4.8-10.8)
[2018-10-23 08:17] LABS: BUN Creatinine Ratio 21.4 (10-20); Calcium 8.8 mg/dl (8.5-10.1); Creatinine Clr Calc Pharmacy 67.4 ml/min; Est GFR (African American) 94.3; Est GFR (Non-African American) 81.4; Potassium 3.2 mmol/L (3.5-5.1)
[2018-10-23] MEDS: ASPIRIN 81 MG ECTAB PO SCH (08:59)
[2018-10-23] MEDS: PANTOprazole 40 MG TAB PO SCH (08:59)
[2018-10-23] MEDS: DOCUSATE SODIUM 100 MG CAP PO SCH ×2 (08:59→20:41)
[2018-10-23] MEDS: FLUDROCORTISONE ACETATE 0.1 MG TAB PO SCH (08:59)
[2018-10-23] MEDS: cefTRIAXone SODIUM 2,000 MG in DEXTROSE 5% 50 ML IV SCH (09:02)
[2018-10-23] MEDS ORDERED: POTASSIUM CHLORIDE 20 MEQ TABCR PO STA (10:16)
[2018-10-23] MEDS ORDERED: AMLODIPINE BESYLATE 5 MG TAB PO ONE (17:57)
--- NOTE | 2018-10-23 20:36 | Hospitalist Progress Note ---
Date of Service October 23, 2018 Assessment & Plan (1) UTI (urinary tract infection): suspected cause of presentation. cont rocephin 2 gm daily. culture still pending. if negative would still Rx for UTI. would need PAYTON as well to r/o prostatitis. stop IV fluids today. has calcium oxalate crystals on u/a - consider CT to r/o stones but renal u/s without hydronephrosis which would argue against an obstructing stone. (2) Acute encephalopathy: metabolic. likely due to UTI. supportive care, abx, etc avoid benzos if possible and other sedatives patient overall improving nicely. (3) YANN (acute kidney injury): resolved. stop IV fluids. BMP am. (4) Parkinsons disease: was previously on PD meds but did not tolerate them. neuro saw patient this admission - nothing to do at this time. PT, OT evals. (5) GERD (gastroesophageal reflux disease): cont PPI (6) Acute hypokalemia: replace repeat K level am mag recently wnl (7) Elevated blood pressure reading without diagnosis of hypertension: with PD you can have severe autonomic insufficiency leading to severe orthostatic hypotension. you can also have the opposite -- large spikes in BP. previous visits to [facility] have been similar. he is orthostatic with 30-point drop in BP today. we have to balance the risks/benefits of treating the "highs" given that he has orthostasis and could "bottom out." would hold the florinef for now. add amlodipine 2.5mg now. repeat orthostatics qshift. (8) DVT prophylaxis: lovenox 40mg daily - start in am patient needs rehab - PT/OT both recommending SNF lives at [facility] -- d/c to [facility]? left message for daughter last evening on her voicemail Subjective when I arrived patient was laying in bed. immediately he said "I want to get up" and "I want to eat my dinner in the chair". I helped Mr Monge get up out of bed to the chair w/ the nurse. He had a PD posture but his strength was fair. He admitted to being weak. Appetite has improved. Denied any dizziness. Review of Systems Respiratory: no cough and no dyspnea Cardiovascular: no chest pain Gastrointestinal: no abdominal pain, no nausea and no vomiting Physical Exam Constitutional: no acute distress ENMT: external ear and nose normal, oropharynx normal Respiratory: normal respiratory effort, lungs clear to auscultation Cardiovascular: Rate/Rhythm: regular rate and regular rhythm Heart Sounds: normal S1 and normal S2; no murmur Vessels: posterior tibial pulses present and dorsalis pedis pulses present; no JVD Extremities: no edema Gastrointestinal (Abdomen): normal bowel sounds, soft, nontender, no hepatosplenomegaly Neurologic: masked facies, stooped posture, slow gait, rigidity Results & Data Vital Signs (Past 12 Hours) Vital Signs Temp Pulse Resp BP BP Pulse Ox 10/23/18 20:19 187/74 H 10/23/18 14:59 37.0 C 67 18 180/81 H 93 10/23/18 09:59 188/72 H Laboratory Results Laboratory Results - last 24 hr 10/23/18 10/23/18 07:16 07:16 WBC 5.65 RBC 4.03 L Hgb 12.9 L Hct 37.1 L MCV 92.1 MCH 32.0 MCHC 34.8 RDW Std Deviation 40.9 RDW Coeff of Jennifer 12.0 Plt Count 175 MPV 9.7 Immature Gran % (Auto) 0.2 Neut % (Auto) 71.0 Lymph % (Auto) 15.8 [place] % (Auto) 11.0 Eos % (Auto) 1.6 Baso % (Auto) 0.4 Immature Gran # (Auto) 0.01 Neut # (Auto) 4.02 Lymph # (Auto) 0.89 L [place] # (Auto) 0.62 H Eos # (Auto) 0.09 Baso # (Auto) 0.02 Sodium 140 Potassium 3.2 L Chloride 105 Carbon Dioxide 27 Anion Gap 8.0 BUN 18 Creatinine 0.83 D Est Cr Clr Drug Dosing 67.4 Est GFR ( Amer) 94.3 Est GFR (Non-Af Amer) 81.4 BUN/Creatinine Ratio 21.4 H Glucose 107 H Calcium 8.8 Diagnostic Findings urine culture pending PG Care Time/CCT Total # of Minutes Spent Total Time Spent with Patient: Total time spent is greater than 50% in coordination of care (as documented) at patient's floor/unit and/or counseling patient: (1) UTI (urinary tract infection) Hematuria presence: without hematuria Urinary tract infection type: acute cystitis Qualified Code(s): N30.00 - Acute cystitis without hematuria (2) GERD (gastroesophageal reflux disease) Esophagitis presence: esophagitis presence not specified Qualified Code(s): K21.9 - Gastro-esophageal reflux disease without esophagitis
[2018-10-24 07:11] LABS: INR 1.1 (0.9-1.1); Prothrombin Time 11.1 Seconds (9.0-12.0)
[2018-10-24] MEDS: PANTOprazole 40 MG TAB PO SCH (07:32)
[2018-10-24] MEDS: ASPIRIN 81 MG ECTAB PO SCH (07:32)
[2018-10-24] MEDS: DOCUSATE SODIUM 100 MG CAP PO SCH ×2 (07:32→21:12)
[2018-10-24] MEDS: cefTRIAXone SODIUM 2,000 MG in DEXTROSE 5% 50 ML IV SCH (07:37)
[2018-10-24 07:40] LABS: BUN Creatinine Ratio 12.8 (10-20); Calcium 8.6 mg/dl (8.5-10.1); Creatinine Clr Calc Pharmacy 62.2 ml/min; Est GFR (African American) 91.2; Est GFR (Non-African American) 78.7; Potassium 3.4 mmol/L (3.5-5.1)
[2018-10-24] MEDS: ENOXAPARIN INJ 40 MG/0.4 ML SYR SQ SCH (08:32)
[2018-10-24] MEDS ORDERED: POTASSIUM CHLORIDE 20 MEQ TABCR PO STA (08:43)
[2018-10-24] MEDS: AMLODIPINE BESYLATE 5 MG TAB PO SCH ×2 (09:29→21:14)
[2018-10-24] MEDS: ACETAMINOPHEN 500 MG TAB PO PRN (12:16)
[2018-10-24] MEDS: POLYETHYLENE (MIRALAX) 17 GM PACK PO SCH (21:11)
[2018-10-24] MEDS: SENNA 8.6 MG TAB PO SCH (21:12)
--- NOTE | 2018-10-24 22:26 | Hospitalist Progress Note ---
Date of Service October 24, 2018 Assessment & Plan (1) UTI (urinary tract infection): suspected but urine culture negative. would still Rx for UTI. stop rocephin. start keflex 500mg BID. would check PAYTON to r/o prostatitis prior to discharge. (2) Acute encephalopathy: resolved. likely metabolic from suspected UTI. (3) YANN (acute kidney injury): resolved. (4) Parkinsons disease: was previously on PD meds but did not tolerate them. neuro saw patient this admission - nothing to do at this time. PT, OT evals. needs rehab. (5) GERD (gastroesophageal reflux disease): cont PPI (6) Acute hypokalemia: replace repeat K level am mag recently wnl (7) Elevated blood pressure reading without diagnosis of hypertension: with PD you can have severe autonomic insufficiency leading to severe orthostatic hypotension. you can also have the opposite -- large spikes in BP. previous visits to [facility] have been similar. we have to balance the risks/benefits of treating the "highs" given that he has orthostasis and could "bottom out." would hold the florinef for now. titrate amlodipine to 2.5mg BID. repeat orthostatics qshift. (8) Constipation: senna with miralax (9) Autonomic dysfunction: 2nd to parkinson's disease see "elevated BP..." (10) DVT prophylaxis: lovenox 40mg daily patient needs rehab - PT/OT both recommending SNF lives at [facility] -- d/c to [facility] if possible updated daughter today Subjective c/o constipation eating decently no dyspnea no dizziness feeling better spoke with daughter by phone today - gave update Review of Systems Constitutional: no fever and no chills Respiratory: no cough and no dyspnea Cardiovascular: no chest pain Gastrointestinal: no abdominal pain, no nausea and no vomiting Physical Exam Constitutional: no acute distress ENMT: external ear and nose normal, oropharynx normal Respiratory: normal respiratory effort, lungs clear to auscultation Cardiovascular: Rate/Rhythm: regular rate and regular rhythm Heart Sounds: normal S1 and normal S2; no murmur Vessels: posterior tibial pulses present and dorsalis pedis pulses present; no JVD Extremities: no edema Gastrointestinal (Abdomen): normal bowel sounds, soft, nontender, no hepatosplenomegaly Inspection/Auscultation: + abdomen distended (mild) Neurologic: rigidity of extremities, masked facies Psychiatric: Orientation: alert, oriented to person and oriented to place Results & Data Vital Signs (Past 12 Hours) Vital Signs Temp Pulse Resp BP Pulse Ox 10/24/18 14:54 36.8 C 64 17 167/77 H 94 Laboratory Results Laboratory Results - last 24 hr 10/24/18 10/24/18 06:36 06:36 PT 11.1 INR 1.1 Sodium 139 Potassium 3.4 L Chloride 103 Carbon Dioxide 28 Anion Gap 8.0 BUN 12 Creatinine 0.90 Est Cr Clr Drug Dosing 62.2 Est GFR ( Amer) 91.2 Est GFR (Non-Af Amer) 78.7 BUN/Creatinine Ratio 12.8 Glucose 101 H Calcium 8.6 Diagnostic Findings urine cx - mixed srini PG Care Time/CCT Total # of Minutes Spent Total Time Spent with Patient: Total time spent is greater than 50% in coordination of care (as documented) at patient's floor/unit and/or counseling patient: (1) UTI (urinary tract infection) Hematuria presence: without hematuria Urinary tract infection type: acute cystitis Qualified Code(s): N30.00 - Acute cystitis without hematuria (2) GERD (gastroesophageal reflux disease) Esophagitis presence: esophagitis presence not specified Qualified Code(s): K21.9 - Gastro-esophageal reflux disease without esophagitis (3) Constipation Constipation type: other constipation type Qualified Code(s): K59.09 - Other constipation
[2018-10-25] MEDS: ACETAMINOPHEN 500 MG TAB PO PRN ×2 (05:21→20:01)
[2018-10-25 09:07] LABS: BUN Creatinine Ratio 18.3 (10-20); Calcium 8.7 mg/dl (8.5-10.1); Creatinine Clr Calc Pharmacy 67.4 ml/min; Est GFR (African American) 94.3; Est GFR (Non-African American) 81.4; Potassium 3.7 mmol/L (3.5-5.1)
[2018-10-25] MEDS: PANTOprazole 40 MG TAB PO SCH (09:47)
[2018-10-25] MEDS: POLYETHYLENE (MIRALAX) 17 GM PACK PO SCH ×2 (09:47→20:05)
[2018-10-25] MEDS: DOCUSATE SODIUM 100 MG CAP PO SCH ×2 (09:47→20:05)
[2018-10-25] MEDS: AMLODIPINE BESYLATE 5 MG TAB PO SCH ×2 (09:47→20:05)
[2018-10-25] MEDS: ENOXAPARIN INJ 40 MG/0.4 ML SYR SQ SCH (09:47)
[2018-10-25] MEDS: ASPIRIN 81 MG ECTAB PO SCH (09:48)
[2018-10-25] MEDS: SENNA 8.6 MG TAB PO SCH (09:49)
[2018-10-25] MEDS: cephALEXin 500 MG CAP PO SCH ×2 (09:52→20:04)
--- NOTE | 2018-10-25 21:02 | Hospitalist Progress Note ---
Date of Service October 25, 2018 Assessment & Plan (1) UTI (urinary tract infection): suspected but urine culture ultimately was negative. would still Rx for UTI given u/a findings and symptoms at presentation. received 3 days of rocephin. now day #4 of abx - finish course with keflex 500mg BID. consider PAYTON to r/o prostatitis prior to discharge. (2) Acute encephalopathy: resolved. likely metabolic from suspected UTI. (3) YANN (acute kidney injury): resolved. peak Cr 1.9, now 0.8. (4) Parkinsons disease: was previously on PD meds but did not tolerate them. neuro saw patient this admission - nothing to do at this time. PT, OT evals completed. needs rehab. (5) GERD (gastroesophageal reflux disease): cont PPI (6) Acute hypokalemia: replaced and resolved mag noted to be normal (7) Elevated blood pressure reading without diagnosis of hypertension: Has severe autonomic insufficiency leading to severe orthostatic hypotension as well as very high supine readings. This is due to his parkinson's disease. previous visits to [facility] show large BP spikes and lability. we have to balance the risks/benefits of treating the "highs" given that he has orthostasis and could "bottom out." [facility]. continue amlodipine 2.5mg BID. would focus most attention on sitting and standing BPs to avoid iatrogenic worsening of his orthostasis. continue orthostatics qshift. 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 he denied any complaints other than fatigue. he reports he didn't sleep well last night. eating fair. had BM earlier today. orthostatics continue to show significant drop in BP. Review of Systems Respiratory: no cough and no dyspnea Cardiovascular: no chest pain Gastrointestinal: no abdominal pain, no nausea and no vomiting Physical Exam Constitutional: no acute distress ENMT: external ear and nose normal, oropharynx normal Respiratory: normal respiratory effort, lungs clear to auscultation Cardiovascular: Rate/Rhythm: regular rate and regular rhythm Heart Sounds: normal S1 and normal S2; no murmur Vessels: posterior tibial pulses present and dorsalis pedis pulses present; no JVD Extremities: no edema Gastrointestinal (Abdomen): normal bowel sounds, soft, nontender, no hepatosplenomegaly Neurologic: masked facies, rigidity; no significant tremor Psychiatric: Orientation: alert, oriented to person and oriented to place Results & Data Vital Signs (Past 12 Hours) Vital Signs Temp Pulse Resp BP Pulse Ox 10/25/18 20:03 60 177/78 H 10/25/18 18:51 36.9 C 67 18 116/73 95 10/25/18 15:04 36.3 C L 59 L 17 132/83 92 Laboratory Results Laboratory Results - last 24 hr 10/25/18 08:05 Sodium 138 Potassium 3.7 Chloride 103 Carbon Dioxide 28 Anion Gap 7.0 BUN 15 Creatinine 0.83 Est Cr Clr Drug Dosing 67.4 Est GFR ( Amer) 94.3 Est GFR (Non-Af Amer) 81.4 BUN/Creatinine Ratio 18.3 Glucose 106 H Calcium 8.7 PG Care Time/CCT Total # of Minutes Spent Total Time Spent with Patient: Total time spent is greater than 50% in coordination of care (as documented) at patient's floor/unit and/or counseling patient: (1) UTI (urinary tract infection) Hematuria presence: without hematuria Urinary tract infection type: acute cystitis Qualified Code(s): N30.00 - Acute cystitis without hematuria (2) GERD (gastroesophageal reflux disease) Esophagitis presence: esophagitis presence not specified Qualified Code(s): K21.9 - Gastro-esophageal reflux disease without esophagitis (3) Constipation Constipation type: other constipation type Qualified Code(s): K59.09 - Other constipation
[2018-10-26] MEDS ORDERED: SODIUM CHLORIDE 0.9% 1000ML 500 ML IV ONE (05:23)
[2018-10-26] MEDS: AMLODIPINE BESYLATE 5 MG TAB PO SCH (09:29)
[2018-10-26] MEDS: DOCUSATE SODIUM 100 MG CAP PO SCH (09:29)
[2018-10-26] MEDS: PANTOprazole 40 MG TAB PO SCH (09:29)
[2018-10-26] MEDS: ASPIRIN 81 MG ECTAB PO SCH (09:30)
[2018-10-26] MEDS: cephALEXin 500 MG CAP PO SCH (09:31)
[2018-10-26] MEDS: ENOXAPARIN INJ 40 MG/0.4 ML SYR SQ SCH (09:31)
[2018-10-26] MEDS: POLYETHYLENE (MIRALAX) 17 GM PACK PO SCH (09:32)
[2018-10-26] MEDS: SENNA 8.6 MG TAB PO SCH (09:33)
--- NOTE | 2018-10-26 12:54 | Discharge Summary ---
Date of Service October 26, 2018 Admission HPI Per Admitting Provider Lukas Monge is an 83yo C male with history of CVA, HTN, GERD, recently diagnosed PD presenting with somnolence and AMS. Patient states that he woke up this AM and felt fairly normal. He forgot to take his medications. He reports becoming more somnolent and "groggy" during the day. He forgot a scheduled radio call with his friend, also forgot to go to a movie that he was to attend and have dinner. His daughter came to see him and found him to be less conversant than usual. Also weak, unable to get out of his chair without assistance. He also had an episode where he became cold and clammy, BP at that time 80/40. Patient denies headache, fevers, chills, focal deficit. He is complaining of blurry vision, fatigue, diffuse weakness Daughter reports patient has been displaying cognitive slowing over the last 2 weeks. Also progressive gait instability. ER Course: NSS x 2 liters, Zofran 4mg, KCL 40mEq Admission Exam Per Admitting Provider General: patient resting comfortably, NAD, non-toxic in appearance, AA&O x 4 Skin: warm, dry, intact, no rashes or lesions HEENT: NC/AT, PERRL, EOMI, anicteric sclera, conjunctiva without injection, external ear normal to inspection and nontender, nares patent, moist mucus membranes, dentition intact, no oropharyngeal lesions, neck supple, trachea midline, no LAD, no thyromegaly, no JVD Heart: +S1/S2, regular, no m/r/g Lungs: equal air entry bilaterally, no rales/rhonchi/wheezes Abd: +BS, soft, NT/ND, no masses/organomegaly/ascites Ext: warm, 2+ pulses in UE/LE bilaterally, no clubbing/cyanosis or edema Neuro: nonfocal, patient AA&O x 4, speech intact but slow, no facial droop, moving all extremities on command, weakness in LUE and LLE 4/5, RUE/RLE 5/5 Principal Diagnosis Metabolic Encephalopathy, UTI Discharge Exam General: Resting comfortably HEENT: NC/AT; PERRLA with EOMI; [place] conjunctiva, MMM. No erythema of posterior pharynx Neck: Supple and nontender Cardiac: RRR Lungs: CTA bilaterally Abdomen: Bowel normoactive X 4; Nontender to palpation Extremities: Warm. No edema present Neuro: No focal weakness Skin: No rash Discharge Data Allergies Allergy/AdvReac Type Severity Reaction Status Date / Time codeine AdvReac NAUSEA Verified 10/21/18 23:32 Consultations 10/21/18 23:56 ED Decision to Admit Stat 10/22/18 02:08 Consult Neurology Routine Ordered Studies 10/21/18 22:25 CT head/brain wo con Urgent 10/22/18 02:08 US renal/blad retro comp Routine Hospital Course (1) UTI (urinary tract infection): UC was negative but will treat as UTI. Received Rocephin x 3 days; will complete 4 days of Keflex PO. Symptoms improved with treatment of UTI, including confusion. (2) Acute encephalopathy: Now resolved, was likely related to UTI. (3) YANN (acute kidney injury): Creatinine peaked at 1.9, now returned to baseline. (4) Parkinsons disease: Was previously on PD meds but did not tolerate them. Neuro saw patient this admission - nothing to do at this time. PT/OT evaluated as inpt, will be discharged to rehab. (5) GERD (gastroesophageal reflux disease): PPI. (6) Acute hypokalemia: Replaced as needed. (7) Elevated blood pressure reading without diagnosis of hypertension: Has severe autonomic insufficiency leading to severe orthostatic hypotension as well as very high supine readings. This is due to his parkinson's disease. Has had labile BP readings during previous visits. Balance the risks/benefits of treating the "highs" given that he has orthostasis and could "bottom out." Will continue to hold Florinef. Amlodipine 2.5 mg BID was started. Avoid further increases in anti- hypertensives. (8) Constipation: Now resolved. (9) Autonomic dysfunction: 2nd to parkinson's disease (10) DVT prophylaxis: Lovenox. Pt. was stable for discharge to the [facility] on 10/26. Total Time Total Time Spent Total Time Spent (In Minutes): >30 minutes Total Time Includes: Examination of the Patient, Discharge Planning, Medication Reconciliation, Communication With Other Providers and Other Discharge Plan Discharge Items Patient Disposition[facility] Reason For Visit: AMS Discharge Diagnosis: Acute Encephalopathy, UTI Condition: Good Discharge Goals: Decrease discomfort, Improve disease control, Improve function, Increase independence and Prevent disease Activity: As commented below Exercise/Sports: Gradually increase as tolerated Non-emergency contact: Primary Care Provider Call non-emergency contact if: you have any medication questions, your symptoms worsen, your pain is not controlled, your pain is worsening, your pain is concerning for you and you have a fever Follow-up/Referrals: Nithin Feliciano [Primary Care Provider] - Diet: Regular Addtl Provider Instructions: 1. Urinary Tract Infection * Please continue Keflex 500 mg twice daily to complete a 7 day course (first dose this evening, last dose on 10/28) * Drink plenty of fluids to avoid dehydration. * Please schedule a follow up with PCP in 1-2 weeks. 2. Parkinson's Disease * You will be discharged to rehab for PT/OT services. 3. Hypertension * BP has been fluctuating during this admission, ranging from 150-190's. This appears to be a chronic issue based on records from previous admissions. * Please continue Amlodipine 2.5 mg BID as prescribed. * It is recommended to avoid increasing anti-hypertensive vs. adding additional agent due to orthostasis. * Recommend to continue to hold the Florinef at this time. Prescriptions: New cephalexin 500 mg Capsule 500 mg PO BID 3 Days Qty: 6 RF: 0 amlodipine [Norvasc] 5 mg Tablet 2.5 mg PO BID 1 Days Qty: 1 RF: 0 Continued ergocalciferol (vitamin D2) [Vitamin D2] 50,000 unit capsule 50,000 units PO WK RF: 0 aspirin 81 mg Tablet,Delayed Release (Dr/Ec) 81 mg PO DAILY RF: 0 acetaminophen [Tylenol Extra Strength] 500 mg Tablet 500 mg PO Q6H PRN (Reason: pain/fever) RF: 0 docusate sodium [Colace] 100 mg Capsule 100 mg PO BID RF: 0 PreserVision AREDS [id number] Tablet 1 tab PO DAILY RF: 0 pantoprazole [Protonix] 40 mg Tablet,Delayed Release (Dr/Ec) 40 mg PO DAILY RF: 0 Discontinued fludrocortisone 0.1 mg Tablet 0.1 mg PO DAILY RF: 0 Stand-Alone Forms: [facility] Discharge Orders: Discharge Order (Routine); Ordered 08/17/19 Ordered By: Carol Bryan Skilled Items Patient informed of condition?: Yes DNR: No Discharge Level of Care: Skilled Communicable Disease: No Discharge Prognosis: Improving Admission Data Admit Date/Time: 10/22/18 00:57 Attending Provider: Lebron Tabor Admit Provider: Ruth Cedeño Primary Care Provider: Nithin Feliciano Other Providers: Finesse Rodriguez ; Lebron Tabor Service: Medical Other Pending Studies at Discharge: No
== END 2018-10-26 14:15 | DRG 689 ==
LOC: ED 21:38 → 3W 10-22 00:57 → SUATTDRO 10-22 00:57 → 3W 10-22 01:47

== ENCOUNTER 2018-12-10 18:54 | Inpatient (IN) ==
[2018-12-10 19:55] LABS: Basophils # (auto) 0.02 K/uL (0-0.2); Basophils % (auto) 0.3 %; Eosinophils # (auto) 0.02 K/uL (0-0.5); Eosinophils % (auto) 0.3 %; Hematocrit (blood only) 30.4 % (42-52); Hemoglobin 10.2 g/dL (14.0-18.0); Immature Granulocytes # (auto) 0.03 K/uL (0.00-0.02); Immature Granulocytes % (auto) 0.4 %; Lymphocytes # (auto) 1.32 K/uL (1.2-3.4); Lymphocytes % (auto) 16.9 %; Mean Corpuscular Hemoglobin 31.7 pg (25-34); Mean Corpuscular Hgb Conc 33.6 g/dL (32-36); Mean Corpuscular Volume 94.4 fL (80-100); Mean Platelet Volume 9.3 fL (7.4-10.4); Monocytes # (auto) 0.84 K/uL (0.11-0.59); Monocytes % (auto) 10.7 %; Neutrophils % (auto) 71.4 %; Platelet Count 330 K/uL (130-400); RDW Coefficient of Variation 13.5 % (11.5-14.5); Red Blood Count 3.22 M/uL (4.7-6.1); White Blood Count 7.83 K/uL (4.8-10.8)
[2018-12-10 20:20] LABS: Albumin Level 3.6 gm/dl (3.4-5.0); BUN Creatinine Ratio 23.4 (10-20); Calcium 8.9 mg/dl (8.5-10.1); Creatinine Clr Calc Pharmacy 41.8 ml/min; Est GFR (African American) 56.4; Est GFR (Non-African American) 48.6; Potassium 3.6 mmol/L (3.5-5.1)
[2018-12-10 20:23] LABS: Albumin Globulin Ratio 1.3 (0.9-2); Bilirubin,Total 0.6 mg/dl (0.2-1); Globulin 2.7 gm/dl (2.5-4.0); Total Protein 6.4 gm/dl (6.4-8.2)
[2018-12-10 22:07] LABS: Partial Thromboplastin Time 26.7 Seconds (21.0-31.0); Prothrombin Time 10.6 Seconds (9.0-12.0)
[2018-12-10 22:32] LABS: Appearance Urine Clear (Clear); Bacteria Urine Automated Negative (Negative); Bilirubin Urine Negative (Negative); Blood Urine Trace (Negative); Color Urine Dark Yellow; Glucose Urine UA Negative (Negative); Ketones Urine Trace (Negative); Leukocyte Esterase Urine Trace (Negative); Nitrite Urine Positive (Negative); Protein Urine Trace (Negative); Specific Gravity Urine 1.032 (1.000-1.030); Urobilinogen Urine Negative (Negative)
[2018-12-10 22:48] LABS: Calcium Oxalate Crystals Urine Present (None Prsent); RBC Urine Automated 0-4 /hpf (0-4); Sperm Urine Present (None Prsent)
[2018-12-10] MEDS ORDERED: PANTOprazole 80 MG in DEXTROSE 5% 100 ML IV ONE (23:00)
[2018-12-10] MEDS: PANTOprazole 40 MG in DEXTROSE 5% 100 ML IV SCH (23:16)
--- NOTE | 2018-12-11 02:00 | Emergency Department Note ---
Entered by Camilla Lopez acting as a scribe for Yunier Rai History of Present Illness General Chief complaint: Illness Stated complaint: WEAKNESS Time Seen by Provider: 12/10/18 19:58 Source: patient History of Present Illness Provider complaint: lightheadedness Onset (ago): day(s) (several days) Location: head Relieved By: + none Exacerbated By: + none Associated symptoms: + other (+dark stools) The patient is a 83 year old male who presents to the Emergency Room with complaints of lightheadedness for the past several days. The patient reports that he has had dark stools. He denies any recent falls or head injuries. The patient mentions that he is not on blood thinners. Home Medications Home Medications Medication Instructions Recorded Confirmed Type ergocalciferol (vitamin D2) 50,000 units PO WK 06/07/18 12/10/18 History [Vitamin D2] PreserVision AREDS 1 tab PO DAILY 10/21/18 12/10/18 History aspirin 81 mg PO DAILY 10/21/18 12/10/18 History pantoprazole [Protonix] 40 mg PO DAILY PRN 10/21/18 12/10/18 History docusate sodium 100 mg capsule 100 mg PO BID cap 11/07/18 12/10/18 History carbidopa 25 mg-levodopa 100 mg 0.5 tab PO TID #45 tab 11/12/18 12/10/18 Rx tablet acetaminophen 500 mg PO Q6H PRN 12/10/18 12/10/18 History fludrocortisone 0.1 mg PO DAILY 12/10/18 12/10/18 History Allergies Allergy/AdvReac Type Severity Reaction Status Date / Time codeine AdvReac NAUSEA Verified 12/10/18 19:41 Carbidopa-Levodopa TABS AdvReac Unknown Gastrointestinal Uncoded 12/10/18 19:51 Upset Past Med/Surg History Medical History Hypertension Anxiety GERD (gastroesophageal reflux disease) 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 and A total of 10 systems reviewed and were otherwise negative Physical Exam Vital Signs Vital Signs - 24 hr 12/10/18 19:04 12/10/18 19:08 12/10/18 19:30 Temperature 36.7 C Temperature Source Oral Sepsis Recent Fever Within 48 Hours No Sepsis Action Taken by Nursing No Action Required Pulse Rate 80 80 79 Pulse Rate [Left] Pulse Rate from SpO2 Sensor 81 79 Respiratory Rate 15 17 15 Respiratory Effort / Characteristics Respiratory Depth Normal Respiratory Pattern Blood Pressure 138/66 138/66 110/62 Blood Pressure [Right Arm] Blood Pressure Mean 90 90 78 Blood Pressure Mean [Right Arm] Pulse Oximetry 95 96 96 Oxygen Delivery Method Room Air 12/10/18 20:00 12/10/18 20:30 12/10/18 20:36 Temperature Temperature Source Sepsis Recent Fever Within 48 Hours Sepsis Action Taken by Nursing Pulse Rate 81 77 Pulse Rate [Left] 79 Pulse Rate from SpO2 Sensor 81 78 Respiratory Rate 15 16 20 Respiratory Effort / Characteristics Non-Labored Respiratory Depth Normal Respiratory Pattern Regular Blood Pressure 116/56 L 138/74 Blood Pressure [Right Arm] 138/74 Blood Pressure Mean 76 95 Blood Pressure Mean [Right Arm] 95 Pulse Oximetry 94 96 95 Oxygen Delivery Method Room Air 12/10/18 21:00 12/10/18 21:30 12/10/18 22:00 Temperature Temperature Source Sepsis Recent Fever Within 48 Hours Sepsis Action Taken by Nursing Pulse Rate 76 73 68 Pulse Rate [Left] 125 H Pulse Rate from SpO2 Sensor 76 74 68 Respiratory Rate 16 15 17 Respiratory Effort / Characteristics Non-Labored Respiratory Depth Normal Respiratory Pattern Regular Blood Pressure 124/68 111/61 118/60 Blood Pressure [Right Arm] 118/60 Blood Pressure Mean 86 77 79 Blood Pressure Mean [Right Arm] 79 Pulse Oximetry 95 94 96 Oxygen Delivery Method Room Air 12/10/18 23:17 12/11/18 00:49 Temperature Temperature Source Sepsis Recent Fever Within 48 Hours Sepsis Action Taken by Nursing Pulse Rate Pulse Rate [Left] 81 68 Pulse Rate from SpO2 Sensor Respiratory Rate 20 20 Respiratory Effort / Characteristics Respiratory Depth Respiratory Pattern Blood Pressure Blood Pressure [Right Arm] 92/54 L 131/65 Blood Pressure Mean Blood Pressure Mean [Right Arm] 66 87 Pulse Oximetry 96 96 Oxygen Delivery Method Room Air Room Air Physical Exam GENERAL: He is oriented to person, place, and time. He appears well-developed and well-nourished. He does not appear distressed. ____ HENT: Exam performed. - Head: Normocephalic and atraumatic. - Right Ear: External ear normal. No mastoid tenderness. - Left Ear: External ear normal. No mastoid tenderness. - Mouth/Throat: The oropharynx is clear and moist. No trismus in the jaw. No dental abscesses or uvula swelling. No oropharyngeal exudate or tonsillar abscesses. ____ EYES: Conjunctivae and EOM are normal. Pupils are equal, round, and reactive to light. Right eye exhibits no discharge. Left eye exhibits no discharge. No scleral icterus. ____ NECK: Normal range of motion. Neck supple. No JVD present. No spinous process tenderness present. No carotid bruit present. No rigidity. No tracheal deviation and normal range of motion present. No Brudzinski's sign and no Kernig's sign noted. ____ CV: Normal rate, regular rhythm, normal heart sounds and intact distal pulses. There is no peripheral edema. Palpable radial pulses bue. ____ PULM/CHEST: Effort normal and breath sounds normal. No respiratory distress. No stridor. He has no wheezes. He has no rales. - Chest Wall: He exhibits no tenderness. ____ ABD: The abdomen is soft. Bowel sounds are normal. He has no distension. No mass is present. There is no tenderness. There is no rebound, no guarding, no Salvador's sign and no tenderness at McBurney's point. Rovsig negative RECTAL: Hemoccult positive, melanotic stool. MUSC/SKEL: Normal range of motion. There is no peripheral edema, tenderness or deformity. LYMPH: No cervical adenopathy. ____ NEURO: He is alert and oriented to person, place, and time. He has normal strength. No cranial nerve deficit or sensory deficit. Coordination and gait normal. GCS eye subscore is 4. GCS verbal subscore is 5. GCS motor subscore is 6. cerbellar tests wnl. ____ SKIN: Skin is warm and dry. He is not diaphoretic. ____ PSYCH: He has a normal mood and affect. His behavior is normal. Judgment and thought content normal. ____ Course 2017: The patient was evaluated in room A4A, and a complete history and physical examination were performed. The patient has a history of hypertension and TIA. 2247: Vital signs are stable, labs and imagining are within normal limits. Hemoglobin stable but the patient continues to have melanotic stool. The patient will be admitted for serial hemoglobin, he will be started on Protonix. I reviewed the patient's case with Dr. Huertas- [facility] Hospitalist. He will evaluate the patient for further management. Administered Medications Pantoprazole Sodium 40 mg/ (Dextrose) 100 mls @ 20 mls/hr IV Q5H VIOLET Stop: 12/11/18 04:14 Last Admin: 12/10/18 23:16 Dose: 20 mls/hr Documented by: [id number] Discontinued Medications Pantoprazole Sodium 80 mg/ (Dextrose) 120 mls @ 480 mls/hr IV NOW ONE Stop: 12/10/18 23:14 Last Infusion: 12/10/18 23:32 Dose: 0 mls/hr Documented by: [id number] Admin: 12/10/18 23:16 Dose: 480 mls/hr Documented by: [id number] Medical Decision Making Medical Records Attestation: I reviewed the patient's medical records. Home Medications Current Medication List: was personally reviewed by me Laboratory Data Attestation: I reviewed the patient's lab results. Result diagrams: 12/10/18 19:25 12/10/18 19:25 Lab Results 12/10/18 12/10/18 12/10/18 Range/Units 19:25 19:25 21:31 WBC 7.83 (4.8-10.8) K/uL RBC 3.22 L (4.7-6.1) M/uL Hgb 10.2 L (14.0-18.0) g/dL Hct 30.4 L (42-52) % MCV 94.4 (80-100) fL MCH 31.7 (25-34) pg MCHC 33.6 (32-36) g/dL RDW Std Deviation 47.0 H (36.4-46.3) fL RDW Coeff of Jennifer 13.5 (11.5-14.5) % Plt Count 330 (130-400) K/uL MPV 9.3 (7.4-10.4) fL Immature Gran % (Auto) 0.4 % Neut % (Auto) 71.4 % Lymph % (Auto) 16.9 % Bibb % (Auto) 10.7 % Eos % (Auto) 0.3 % Baso % (Auto) 0.3 % Immature Gran # (Auto) 0.03 H (0.00-0.02) K/uL Neut # (Auto) 5.60 (1.4-6.5) K/uL Lymph # (Auto) 1.32 (1.2-3.4) K/uL Bibb # (Auto) 0.84 H (0.11-0.59) K/uL Eos # (Auto) 0.02 (0-0.5) K/uL Baso # (Auto) 0.02 (0-0.2) K/uL PT 10.6 (9.0-12.0) Seconds INR 1.0 (0.9-1.1) APTT 26.7 (21.0-31.0) Seconds PTT Ratio 1.0 Sodium 137 (136-145) mmol/L Potassium 3.6 (3.5-5.1) mmol/L Chloride 105 (98-107) mmol/L Carbon Dioxide 21 (21-32) mmol/L Anion Gap 12.0 H (3-11) BUN 31 H (7-18) mg/dl Creatinine 1.34 (0.6-1.4) mg/dl Est Cr Clr Drug Dosing 41.8 ml/min Est GFR ( Amer) 56.4 Est GFR (Non-Af Amer) 48.6 BUN/Creatinine Ratio 23.4 H (10-20) Glucose 109 H (70-99) mg/dl Calcium 8.9 (8.5-10.1) mg/dl Total Bilirubin 0.6 (0.2-1) mg/dl AST 20 (15-37) U/L ALT 7 L (12-78) U/L Alkaline Phosphatase 69 (45-117) U/L Troponin I (0-0.045) ng/ml Total Protein 6.4 (6.4-8.2) gm/dl Albumin 3.6 (3.4-5.0) gm/dl Globulin 2.7 (2.5-4.0) gm/dl Albumin/Globulin Ratio 1.3 (0.9-2) Urine Color Urine Appearance (Clear) Urine pH (4.5-7.5) Ur Specific Archer (1.000-1.030) Urine Protein (Negative) Urine Glucose (UA) (Negative) Urine Ketones (Negative) Urine Blood (Negative) Urine Nitrite (Negative) Urine Bilirubin (Negative) Urine Urobilinogen (Negative) Ur Leukocyte Esterase (Negative) Urine WBC (Auto) (0-5) /hpf Urine RBC (Auto) (0-4) /hpf U Hyaline Cast (Auto) (0-5) /lpf U Epithel Cells (Auto) (0-5) /lpf Urine Bacteria (Auto) (Negative) Calcium Oxalate Crystal (None Prsent) Urine Yeast Urine Sperm (None Prsent) 12/10/18 12/10/18 Range/Units 21:31 22:10 WBC (4.8-10.8) K/uL RBC (4.7-6.1) M/uL Hgb (14.0-18.0) g/dL Hct (42-52) % MCV (80-100) fL MCH (25-34) pg MCHC (32-36) g/dL RDW Std Deviation (36.4-46.3) fL RDW Coeff of Jennifer (11.5-14.5) % Plt Count (130-400) K/uL MPV (7.4-10.4) fL Immature Gran % (Auto) % Neut % (Auto) % Lymph % (Auto) % Bibb % (Auto) % Eos % (Auto) % Baso % (Auto) % Immature Gran # (Auto) (0.00-0.02) K/uL Neut # (Auto) (1.4-6.5) K/uL Lymph # (Auto) (1.2-3.4) K/uL Bibb # (Auto) (0.11-0.59) K/uL Eos # (Auto) (0-0.5) K/uL Baso # (Auto) (0-0.2) K/uL PT (9.0-12.0) Seconds INR (0.9-1.1) APTT (21.0-31.0) Seconds PTT Ratio Sodium (136-145) mmol/L Potassium (3.5-5.1) mmol/L Chloride (98-107) mmol/L Carbon Dioxide (21-32) mmol/L Anion Gap (3-11) BUN (7-18) mg/dl Creatinine (0.6-1.4) mg/dl Est Cr Clr Drug Dosing ml/min Est GFR ( Amer) Est GFR (Non-Af Amer) BUN/Creatinine Ratio (10-20) Glucose (70-99) mg/dl Calcium (8.5-10.1) mg/dl Total Bilirubin (0.2-1) mg/dl AST (15-37) U/L ALT (12-78) U/L Alkaline Phosphatase (45-117) U/L Troponin I < 0.015 (0-0.045) ng/ml Total Protein (6.4-8.2) gm/dl Albumin (3.4-5.0) gm/dl Globulin (2.5-4.0) gm/dl Albumin/Globulin Ratio (0.9-2) Urine Color Dark Yellow Urine Appearance Clear (Clear) Urine pH 5.0 (4.5-7.5) Ur Specific Archer 1.032 H (1.000-1.030) Urine Protein Trace H (Negative) Urine Glucose (UA) Negative (Negative) Urine Ketones Trace H (Negative) Urine Blood Trace H (Negative) Urine Nitrite Positive A (Negative) Urine Bilirubin Negative (Negative) Urine Urobilinogen Negative (Negative) Ur Leukocyte Esterase Trace H (Negative) Urine WBC (Auto) 1-5 (0-5) /hpf Urine RBC (Auto) 0-4 (0-4) /hpf U Hyaline Cast (Auto) 1-5 (0-5) /lpf U Epithel Cells (Auto) 5-10 H (0-5) /lpf Urine Bacteria (Auto) Negative (Negative) Calcium Oxalate Crystal Present A (None Prsent) Urine Yeast Not Reportable Urine Sperm Present A (None Prsent) ECG Data Attestation: I personally reviewed and interpreted this ECG as follows: Indication: weakness Rate (beats per minute): 82 Rhythm: sinus rhythm Findings: + other (QRS 146, QTC 500) and + RBBB; no ST depression and no ST elevation Blood Pressure Blood Pressure Findings: Normal blood pressure Blood Pressure Disposition: did not require urgent referral MDM Narrative Vital signs are stable, labs and imagining are within normal limits. Hemoglobin stable but the patient continues to have melanotic stool. The patient will be ad mitted for serial hemoglobin, he will be started on Protonix. I reviewed the patient's case with Dr. Huertas- [facility] Hospitalist. He will evaluate the patient for further management. Impression & Plan GI bleed Discharge Plan Visit Data Chief Complaint: Illness Stated Complaint: WEAKNESS ED Provider: Yunier Rai Discharge Problem: GI bleed Patient Disposition: Being Evaluated by Hospitalist Forms Stand Alone Forms: [facility] [place] [employer] Prescriptions Prescriptions: No Action carbidopa-levodopa 25-100 mg tablet 0.5 tab PO TID Qty: 45 RF: 2 ergocalciferol (vitamin D2) [Vitamin D2] 50,000 unit capsule 50,000 units PO WK RF: 0 aspirin 81 mg Tablet,Delayed Release (Dr/Ec) 81 mg PO DAILY RF: 0 PreserVision AREDS [id number] Tablet 1 tab PO DAILY RF: 0 pantoprazole [Protonix] 40 mg Tablet,Delayed Release (Dr/Ec) 40 mg PO DAILY PRN (Reason: Acid Reflux) RF: 0 docusate sodium [Colace] 100 mg capsule 100 mg PO BID RF: 0 fludrocortisone 0.1 mg tablet 0.1 mg PO DAILY RF: 0 acetaminophen 500 mg Tablet 500 mg PO Q6H PRN (Reason: Pain) RF: 0 Referrals Referrals: Nithin Feliciano MD [Primary Care Provider] - Discharge Problem: GI bleed Qualifiers: GI bleed type/associated pathology: melena Qualified Code(s): K92.1 - Nayeli The scribe's documentation has been prepared under my direction and personally reviewed by me in its entirety. I confirm that the note above accurately reflects all work, treatment, procedures, and medical decision making performed by me.
--- NOTE | 2018-12-11 02:06 | History & Physical Report ---
Date of Service December 11, 2018 Assessment & Plan (1) GI bleed: Mr. Monge is an 83-year-old male with a past medical history of Parkinson's disease with autonomic dysfunction, CVA, hypertension and GERD who presents to the emergency department due to feeling lightheaded, and having black stools. ED course: Protonix drip -Admit to med/surg with telemetry monitoring -Fecal occult test in the emergency department was positive -Vitals stable, however patient has had a drop in hemoglobin from 12.9 at his last admission to 10.2 -Hemoglobin and hematocrit ordered every 8 hours, as well as type and screen -Coag profile within normal limits -Protonix drip initiated in the emergency department, will continue this -N.p.o., IVF with lactated Ringer's at 115 mLs/hr -GI consulted, assistance appreciated YANN -creatinine mildly elevated from <1 to 1.34 -IVF as above, continue to monitor Urinary Tract Infection -UA positive for blood, nitrates, leukocyte esterase -Urine culture ordered -Given patient reported a 24-hour history of general malaise, will treat for UTI -1 g IV Rocephin ordered every 24 hours, will also prophylactically cover GI tract, in the setting of bleed Parkinson's Disease -follows with Dr. 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 Patient resides at the [facility]. (2) H/O: stroke with residual effects: (3) Autonomic dysfunction: (4) UTI (urinary tract infection): (5) YANN (acute kidney injury): (6) GERD (gastroesophageal reflux disease): (7) Parkinsons disease: History of Present Illness Chief Complaint: GI bleed Primary Care Provider: Nithin Feliciano MD Mr. Monge is an 83-year-old male with a past medical history of Parkinson's disease with autonomic dysfunction, CVA, hypertension and GERD who presents to the emergency department due to feeling lightheaded, and having black stools. Mr. Monge notes that he typically feels lightheaded, since he was diagnosed with his stroke, however it is worse than usual. He endorses diarrhea that began yesterday, and states that he has episodes almost every hour. He notes that his stool is black. He denies abdominal pain, fever, or chills. He states that over the past 24 hours, he has felt "foggy," and unable to think straight. He denies chest pain or shortness of breath. He endorses dysuria, but denies frequency, hematuria, or urgency. He reports that his last colonoscopy was 7 years ago. He states that this was normal. He takes aspirin daily, but no other blood thinners. In the past, he has used Aleve intermittently for his arthritic pain. Allergies Allergy/AdvReac Type Severity Reaction Status Date / Time carbidopa [From Sinemet] AdvReac Gastrointestinal Verified 12/11/18 03:05 Upset codeine AdvReac NAUSEA Verified 12/10/18 19:41 levodopa [From Sinemet] AdvReac Gastrointestinal Verified 12/11/18 03:05 Upset Home Medications Home Medications Medication Instructions Recorded Confirmed Type ergocalciferol (vitamin D2) 50,000 units PO WK 06/07/18 12/10/18 History [Vitamin D2] PreserVision AREDS 1 tab PO DAILY 10/21/18 12/10/18 History aspirin 81 mg PO DAILY 10/21/18 12/10/18 History pantoprazole [Protonix] 40 mg PO DAILY PRN 10/21/18 12/10/18 History docusate sodium 100 mg capsule 100 mg PO BID cap 11/07/18 12/10/18 History carbidopa 25 mg-levodopa 100 mg 0.5 tab PO TID #45 tab 11/12/18 12/10/18 Rx tablet acetaminophen 500 mg PO Q6H PRN 12/10/18 12/10/18 History fludrocortisone 0.1 mg PO DAILY 12/10/18 12/10/18 History Past Med/Surg History Medical History Hypertension Anxiety GERD (gastroesophageal reflux disease) 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 [employer] Other Information That Helps Us Care for You: No Feels Safe at Home: Yes Safety Concerns: Feels Safe At This Time Smoking Status: Never smoker Age Quit Using Tobacco: 74 ; Hx Alcohol Use: Yes Alcohol type: hard liquor Hx Substance Use: No Review of Systems Constitutional: + fatigue; no fever and no chills Respiratory: no cough, no dyspnea and no wheezing Cardiovascular: + lightheadedness; no chest pain, no palpitations, no syncope, no edema and no calf pain Gastrointestinal: + change in bowel habits and + melena; no abdominal pain, no nausea and no vomiting Genitourinary: + dysuria; no urinary frequency Physical Exam Constitutional: WD/WN, vitals as above cooperative and comfortable Eyes: PERRL, conjunctivae normal, anicteric sclerae ENMT: external ear and nose normal, oropharynx normal Respiratory: normal respiratory effort, lungs clear to auscultation Cardiovascular: RRR, no murmur, no edema Gastrointestinal (Abdomen): Inspection/Auscultation: abdomen normal to inspection; abdomen not distended Percussion/Palpation: abdomen soft; abdomen nontender, no guarding and abdomen not rigid Skin: no rashes, warm and dry Neurologic: moves all extremities and awake Slow to respond to questions and initiate movement Psychiatric: A+Ox3, euthymic affect Results & Data Vital Signs (Past 12 Hours) Vital Signs Temp Pulse Pulse Resp BP BP Pulse Ox 12/11/18 00:49 68 20 131/65 96 12/10/18 23:17 81 20 92/54 L 96 12/10/18 22:00 68 125 H 17 118/60 118/60 96 12/10/18 21:30 73 15 111/61 94 12/10/18 21:00 76 16 124/68 95 12/10/18 20:36 79 20 138/74 95 12/10/18 20:30 77 16 138/74 96 12/10/18 20:00 81 15 116/56 L 94 12/10/18 19:30 79 15 110/62 96 12/10/18 19:08 36.7 C 80 17 138/66 96 12/10/18 19:04 80 15 138/66 95 Code Status & VTE Plan VTE Prophylaxis Plan VTE Prophylaxis will be ordered: Yes Supervising Physician Co-Signing Physician Notes Patient was seen and examined by me personally. I reviewed the chart, the orders and discussed the case in detail with Dr. Eleazar Iniguez MD . I read this H&P and agree with its contents to entirety. PG Care Time/CCT Total # of Minutes Spent Total Time Spent with Patient: Total time spent is greater than 50% in coordination of care (as documented) at patient's floor/unit and/or counseling patient: Resident Activity Tracking Resident Involvement: Resident Care Provided Care Provided: Adult Hospital Medicine (1) UTI (urinary tract infection) Hematuria presence: without hematuria Urinary tract infection type: acute cystitis Qualified Code(s): N30.00 - Acute cystitis without hematuria (2) GI bleed GI bleed type/associated pathology: melena Qualified Code(s): K92.1 - Melena (3) GERD (gastroesophageal reflux disease) Esophagitis presence: esophagitis presence not specified Qualified Code(s): K21.9 - Gastro-esophageal reflux disease without esophagitis
[2018-12-11] MEDS ORDERED: ONDANSETRON INJ 2 MG/ML 2 ML VIAL IV PRN (02:34)
[2018-12-11] MEDS: LACTATED RINGER'S 1,000 ML IV SCH ×3 (03:26→22:45)
[2018-12-11 03:45] LABS: Hematocrit (blood only) 29.8 % (42-52); Hemoglobin 9.9 g/dL (14.0-18.0)
[2018-12-11] MEDS: cefTRIAXone SODIUM 1,000 MG in DEXTROSE 5% 50 ML IV SCH (03:55)
[2018-12-11] MEDS: PANTOprazole 40 MG in DEXTROSE 5% 100 ML IV SCH ×3 (04:17→13:56)
[2018-12-11] MEDS: FLUDROCORTISONE ACETATE 0.1 MG TAB PO SCH (08:43)
[2018-12-11] MEDS: CARBIDOPA/LEVODOPA 25/100MG TAB PO SCH ×3 (08:43→20:39)
[2018-12-11] MEDS ORDERED: INFLUENZA VIRUS QUAD VACCINE 0.5 ML SYR IM ONE (09:00)
[2018-12-11] MEDS ORDERED: INFLUENZA ADMINISTRATION CHARGE ONE (09:00)
--- NOTE | 2018-12-11 10:16 | Gastrointestinal Consultation ---
Date of Consultation December 11, 2018 Assessment & Plan (1) Acute blood loss anemia: 1. NPO. 2. EGD for further evaluation of symptoms. 3. Continue PPI ggt. 4. Additional recommendations will be made pending results of testing. Supervising Physician Co-Signing Physician Notes Agree with HALIMA Roca Abd: Soft, NT, ND, +BS Continue current therapy Proceed with EGD now for further evaluation of acute blood loss anemia and melena. History of Present Illness Reason for Consultation: GIB Requesting Physician: Dr. Lopez Attending Physician: Trevor Aranda DO History of Present Illness Patient is a 83 year-old male with a history of Parkinson's disease, CVA and HTN and GERD presenting to the hospital with reports of lightheadedness and dark stools which he reports began approximately one week ago. He states he has been taking OTC Excedrin recently to treat frequent headaches but is unclear how often or how much he has been using this medication. He is also taking a daily low dose aspirin. He denies any nausea or vomiting, abdominal pain or bright red rectal bleeding. Stools have become more frequent up to three times per day with urgency. From review of laboratory testing, it appears his H&H was noted to be 13.7 and 39.6 on 10/21/18. Laboratory testing demonstrated a drop down to 9.9/29.8 today. Renal panel demonstrates an elevated BUN of 31. He has been made NPO and started on a Protonix ggt at 20 ml/hr. Allergies Allergy/AdvReac Type Severity Reaction Status Date / Time carbidopa [From Sinemet] AdvReac Gastrointestinal Verified 12/11/18 03:05 Upset codeine AdvReac NAUSEA Verified 12/10/18 19:41 levodopa [From Sinemet] AdvReac Gastrointestinal Verified 12/11/18 03:05 Upset Home Medications Home Medications Medication Instructions Recorded Confirmed Type ergocalciferol (vitamin D2) 50,000 units PO WK 06/07/18 12/10/18 History [Vitamin D2] PreserVision AREDS 1 tab PO DAILY 10/21/18 12/10/18 History aspirin 81 mg PO DAILY 10/21/18 12/10/18 History pantoprazole [Protonix] 40 mg PO DAILY PRN 10/21/18 12/10/18 History docusate sodium 100 mg capsule 100 mg PO BID cap 11/07/18 12/10/18 History carbidopa 25 mg-levodopa 100 mg 0.5 tab PO TID #45 tab 11/12/18 12/10/18 Rx tablet acetaminophen 500 mg PO Q6H PRN 12/10/18 12/10/18 History fludrocortisone 0.1 mg PO DAILY 12/10/18 12/10/18 History Patient History Medical History Acute blood loss anemia GI bleed (Acute) Autonomic dysfunction Hypertension Anxiety GERD (gastroesophageal reflux disease) Parkinsons disease (Chronic) 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 [employer] Other Information That Helps Us Care for You: No Feels Safe at Home: Yes Safety Concerns: Feels Safe At This Time Smoking Status: Never smoker Age Quit Using Tobacco: 74 ; Hx Alcohol Use: Yes Alcohol type: hard liquor Hx Substance Use: No Review of Systems Constitutional: as per Subjective / HPI and + fatigue Eyes: no problem reported Ear, Nose, Mouth, Throat: no dysphagia and no pain with swallowing Respiratory: no dyspnea and no dyspnea on exertion Cardiovascular: no chest pain and no palpitations Gastrointestinal: as per Subjective / HPI Genitourinary: no problem reported Musculoskeletal: + swelling Integumentary: no problem reported Neurologic: as per Subjective / HPI; no unsteadiness Psychiatric: no problem reported Physical Exam Constitutional: WD/WN, vitals as above Eyes: EOM intact bilaterally Neck: normal appearance Respiratory: normal respiratory effort, lungs clear to auscultation Cardiovascular: Rate/Rhythm: regular rate and regular rhythm Heart Sounds: no gallop and no murmur Gastrointestinal (Abdomen): normal bowel sounds, soft, nontender, no hepatosplenomegaly Inspection/Auscultation: abdomen not distended Musculoskeletal: Extremities: + lower leg abnormality Bilateral (edema) Skin: no rashes, warm and dry Neurologic: moves all extremities Psychiatric: A+Ox3, euthymic affect Results & Data Vital Signs (Past 12 Hours) Vital Signs Temp Pulse Pulse Pulse Resp BP Pulse Ox 12/11/18 09:00 60 12/11/18 07:48 36.7 C 61 18 153/69 H 96 12/11/18 06:15 66 12/11/18 04:14 36.9 C 59 L 17 154/69 H 96 12/11/18 03:00 36.8 C 64 14 127/71 96 12/11/18 02:04 67 20 135/70 96 12/11/18 00:49 68 20 131/65 96 12/10/18 23:17 81 20 92/54 L 96 Laboratory Results Abnormal lab results 12/10/18 12/10/18 12/10/18 Range/Units 19:25 19:25 22:10 RBC 3.22 L (4.7-6.1) M/uL Hgb 10.2 L (14.0-18.0) g/dL Hct 30.4 L (42-52) % RDW Std Deviation 47.0 H (36.4-46.3) fL Immature Gran # (Auto) 0.03 H (0.00-0.02) K/uL Coleman # (Auto) 0.84 H (0.11-0.59) K/uL Anion Gap 12.0 H (3-11) BUN 31 H (7-18) mg/dl BUN/Creatinine Ratio 23.4 H (10-20) Glucose 109 H (70-99) mg/dl ALT 7 L (12-78) U/L Ur Specific [place] 1.032 H (1.000-1.030) Urine Protein Trace H (Negative) Urine Ketones Trace H (Negative) Urine Blood Trace H (Negative) Urine Nitrite Positive A (Negative) Ur Leukocyte Esterase Trace H (Negative) U Epithel Cells (Auto) 5-10 H (0-5) /lpf Calcium Oxalate Crystal Present A (None Prsent) Urine Sperm Present A (None Prsent) 12/11/18 Range/Units 03:30 RBC (4.7-6.1) M/uL Hgb 9.9 L (14.0-18.0) g/dL Hct 29.8 L (42-52) % RDW Std Deviation (36.4-46.3) fL Immature Gran # (Auto) (0.00-0.02) K/uL Coleman # (Auto) (0.11-0.59) K/uL Anion Gap (3-11) BUN (7-18) mg/dl BUN/Creatinine Ratio (10-20) Glucose (70-99) mg/dl ALT (12-78) U/L Ur Specific [place] (1.000-1.030) Urine Protein (Negative) Urine Ketones (Negative) Urine Blood (Negative) Urine Nitrite (Negative) Ur Leukocyte Esterase (Negative) U Epithel Cells (Auto) (0-5) /lpf Calcium Oxalate Crystal (None Prsent) Urine Sperm (None Prsent) PG Care Time/CCT Total # of Minutes Spent Total Time Spent with Patient: Total time spent is greater than 50% in coordination of care (as documented) at patient's floor/unit and/or counseling patient:
--- NOTE | 2018-12-11 10:51 | Anesthesiology Consultation ---
Date of Service December 11, 2018 Assessment & Plan (1) Encounter for pre-operative examination: Chart Review Chart Review: Acceptable Risk for Surgery, Patient NOT seen in Pre Admission Testing and business mail entry clerk initiated Consults Requested none History Surgery Operation Date: 12/11/18 09:15 Proposed Procedures p Esophagogastroduodenoscopy Dr Adam Chand Case, DO Height/Weight Height: 5 ft 9 in Weight: 73.8 kg Allergies Allergy/AdvReac Type Severity Reaction Status Date / Time carbidopa [From Sinemet] AdvReac Gastrointestinal Verified 12/11/18 03:05 Upset codeine AdvReac NAUSEA Verified 12/10/18 19:41 levodopa [From Sinemet] AdvReac Gastrointestinal Verified 12/11/18 03:05 Upset Medications Home Medications Medication Instructions Recorded Confirmed Last Taken ergocalciferol (vitamin D2) 50,000 units PO WK 06/07/18 12/10/18 06/03/18 [Vitamin D2] PreserVision AREDS 1 tab PO DAILY 10/21/18 12/10/18 Unknown aspirin 81 mg PO DAILY 10/21/18 12/10/18 Unknown pantoprazole [Protonix] 40 mg PO DAILY PRN 10/21/18 12/10/18 Unknown docusate sodium 100 mg capsule 100 mg PO BID cap 11/07/18 12/10/18 Unknown carbidopa 25 mg-levodopa 100 mg 0.5 tab PO TID #45 tab 11/12/18 12/10/18 Unknown tablet acetaminophen 500 mg PO Q6H PRN 12/10/18 12/10/18 Unknown fludrocortisone 0.1 mg PO DAILY 12/10/18 12/10/18 Unknown Active Medications Generic Name Dose Route Start Last Admin Trade Name Freq PRN Reason Stop Dose Admin Carbidopa/Levodopa 0.5 tab 12/11/18 09:00 12/11/18 08:43 Sinemet 25/100 Mg PO 01/10/19 08:59 0.5 tab TID VIOLET Administration Fludrocortisone Acetate 0.1 mg 12/11/18 09:00 12/11/18 08:43 Florinef PO 01/10/19 08:59 0.1 mg DAILY VIOLET Administration Pantoprazole Sodium 40 mg/ 100 mls @ 20 mls/hr 12/10/18 23:15 12/11/18 08:52 Dextrose IV 01/09/19 23:14 20 mls/hr Q5H VIOLET Administration Lactated Ringer's 1,000 mls @ 115 mls/hr 12/11/18 02:34 12/11/18 04:24 Lr IV 01/10/19 02:33 115 mls/hr .Q8H42M VIOLET Infusion Ceftriaxone Sodium 1,000 mg/ 50 mls @ 100 mls/hr 12/11/18 03:00 12/11/18 04:25 Dextrose IV 12/21/18 02:59 Infused Q24H VIOLET Infusion Protocol Past Medical History Medical History Acute blood loss anemia GI bleed (Acute) Autonomic dysfunction Hypertension Anxiety GERD (gastroesophageal reflux disease) Parkinsons disease (Chronic) 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 Other Coronary heart disease Past Surgical History Surgical History History of tonsillectomy S/P cataract surgery Social History Smoking Status: Never smoker Hx Alcohol Use: Yes Alcohol type: hard liquor alcohol intake frequency: 0-2 drinks per day Hx Substance Use: No Physical Exam Vital Signs Last Vital Signs Temp 36.7 C 12/11/18 07:48 Pulse 60 12/11/18 09:00 Resp 18 12/11/18 07:48 BP 153/69 H 12/11/18 07:48 Pulse Ox 96 12/11/18 07:48 Testing Laboratory Results 12/11/18 03:30 12/10/18 19:25 PT 10.6 Seconds (9.0-12.0) 12/10/18 21:31 INR 1.0 (0.9-1.1) 12/10/18 21:31 APTT 26.7 Seconds (21.0-31.0) 12/10/18 21:31 Urine Color Dark Yellow 12/10/18 22:10 Urine Appearance Clear (Clear) 12/10/18 22:10 Urine pH 5.0 (4.5-7.5) 12/10/18 22:10 Ur Specific [place] 1.032 (1.000-1.030) H 12/10/18 22:10 Urine Protein Trace (Negative) H 12/10/18 22:10 Urine Glucose (UA) Negative (Negative) 12/10/18 22:10 Urine Ketones Trace (Negative) H 12/10/18 22:10 Urine Nitrite Positive (Negative) A 12/10/18 22:10 Ur Leukocyte Esterase Trace (Negative) H 12/10/18 22:10 Urine WBC (Auto) 1-5 /hpf (0-5) 12/10/18 22:10 Urine RBC (Auto) 0-4 /hpf (0-4) 12/10/18 22:10 U Hyaline Cast (Auto) 1-5 /lpf (0-5) 12/10/18 22:10 U Epithel Cells (Auto) 5-10 /lpf (0-5) H 12/10/18 22:10 Urine Bacteria (Auto) Negative (Negative) 12/10/18 22:10 Blood Type A Positive 12/11/18 03:30 Antibody Screen NEGATIVE 12/11/18 03:30 Electrocardiogram Date: 12/10/18 Findings: + NSR @ (82) LAD, RBBB, unchanged compared to EKG 10/21/18
[2018-12-11 11:16] LABS: Hematocrit (blood only) 28.6 % (42-52); Hemoglobin 9.5 g/dL (14.0-18.0)
[2018-12-11 11:50] LABS: BUN Creatinine Ratio 27.1 (10-20); Calcium 8.1 mg/dl (8.5-10.1); Creatinine Clr Calc Pharmacy 62.9 ml/min; Est GFR (African American) 91.6; Est GFR (Non-African American) 79.1; Potassium 3.7 mmol/L (3.5-5.1)
--- NOTE | 2018-12-11 13:34 | Medical Student Progress Note ---
Date of Service December 11, 2018 Assessment & Plan (1) GI bleed: -Patient was on ASA 81 mg daily, which was likely a contributing factor. -Continue Protonix drip, NPO status, and IVF with lactated Ringer's at 115 mLs/hr -GI has seen patient will be doing EGD today. -Continue H/H checks q8H and vitals hourly to monitor for hemodynamic instability -Patient will remain on med/surg with telemetry monitoring GI bleed type/associated pathology: melena Qualified Code(s): K92.1 - Melena Present on Admission?: Yes (2) Hypertension: -Continue to hold amlodipine while treating acute GI bleed -Per records, the patient's autonomic instability has predisposed him to severe drops in blood pressure, making controlling his hypertension less straightforward Present on Admission?: Yes (3) YANN (acute kidney injury): -Creatinine now back down to .89, which is baseline for patient -Continue to monitor -Will continue IVF for GI bleed as noted above (4) Parkinsons disease: -follows with Dr. Rodriguez -continue home sinemet -continue home fludrocortisone for autonomic dysfunction (5) Urine findings abnormal: -Patient denies urinary symptoms. He states he improved after being treated for his UTI in Oct and his symptoms have not since recurred. 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 -SCDs of dubious benefit and present fall risk for this patient who is not safe to ambulate but tries to get out of bed. -Will hold off on DVT prophylaxis at this time. (8) H/O: stroke with residual effects: -No change in deficits -Will hold ASA 81 mg Supervising Attestation I personally examined the patient and verified all flynn points of history and exam, discussed case, and agree with decision making with Hunter Sanodval MS3 Feeling okay now, does note that he had some very severe indigestion the other night. No further melena. Appears that GI will be taking him for EGD Vitals noted, in general he is awake and alert pleasant no distress. HEENT normocephalic atraumatic mucous members moist. Mild epigastric tenderness no guarding rebound or rigidity. GI bleeding with acute blood loss anemiafortunately appears hemodynamically stable. Continue Protonix drip, upper GI source most likely. EGD later today. Acute blood loss anemiaappearing to have stabilized. No indications for transfusion. Significant weight losscould easily be from depression and poorer oral intake and he realizes, could be from worsening oral intake as it relates to his peptic ulcer disease more than he realizes, but obviously need to be concerned for malignancy until proven otherwise. EGD as next step, if it does not show clear etiologies for the weight loss need to consider colonoscopy and/or CT scan of chest abdomen pelvis. DVT prophylaxispharmacologic is obviously contraindicated given the GI bleeding. Subjective Mr. Monge is a 83 year old male w/ hx of CVA May 2018 (on ASA 81 mg), GERD (on pantoprazole), and Parkinson's with autonomic dysfunction. He presented to the ED last night with dark tarry stools, diarrhea, and increasing lightheadedness for the last 24 hours. Had a positive fecal occult blood test, H/H = 10.2/30.4, and hemodynamically stable. Was made NPO and started on Kehinde nix drip. Diarrhea/Melena: This morning he states his diarrhea has improved significantly since last night. He denies N/V/hematemesis, abd pain. He states that yesterday he "almost passed out" and that was what finally prompted him to come to the hospital. He denies consistent pain after eating but does report that several days ago he had one episode of "indigestion" with severe epigastric cramping. He has been compliant with his pantoprazole and has not noticed any worsening of his GERD symptoms. He reports having a colonoscopy 7 years ago, which he states was normal. Lightheadedness: He has a history of orthostatic lightheadedness, but reports worsening lightheadedness as well as feeling "groggy" since his stroke. He reports the marcelo gginess as being his most troubling symptom and feels his quality of life would greatly increase if it improved. Depression: Patient reports feeling "depressed" since his 7 years ago. He lives at the [facility] and states that over the last several years he has felt increasingly "lonely" with anhedonia, energy, waking up early and being unable to fall back asleep, impaired concentration, and occasional psychomotor retardation. He denies SI. He has been attending a grief support group every third Ilsa for the last 7 years and feel it has been somewhat helpful. He is open to additional counseling and medication if appropriate. Alcohol: Patient reports drinking 1-1.5oz of bourbon most evenings. He states this has been his "tradition" for a long time but that it also helps him cope. Unintended Weight Loss: He reports a weight loss of 42 pounds (from 205 to 162) over the last 7 months, since his stroke. He denies any change in appetite and does not feel like he has been eating less. He has been advised to improve his caloric intake, but reports that he has not yet had further workup of the weight loss. Patient denies dysphagia. Urinary Symptoms: Patient reports he had a UTI a few months ago. Records show he was treated in Oct 2018 for UTI a/w metabolic encephalopathy with Rocephin x 3 days, Keflex x4 days. Patient states his symptoms improved after treatment and have not returned since. He currently denies any urinary frequency, dysuria, lower abd pain. HTN: Patient reports that he was discharged on amlodipine the last time he was admitted and has been taking it at home. Review of Systems Constitutional: + weight loss; no fever, no chills and no sweats Gastrointestinal: + diarrhea/loose stools and + melena; no abdominal pain, no nausea, no vomiting, no hematemesis and no dysphagia Genitourinary: no dysuria, no urinary frequency and no urinary urgency Neurologic: + dizziness Psychiatric: + depression, + anhedonia and + abnormal sleep pattern; no suicidal ideation Physical Exam Constitutional: Patient is a pleasant older man, sitting up in hospital bed. He appears well-nourished and in no apparent distress. Eyes: EOMI, PERRLA Neck: No carotid bruits Respiratory: Breath sounds clear and equal to auscultation Cardiovascular: Bradycardic rate, regular rhythm, no murmurs, no S3 or S4 appreciated. Gastrointestinal (Abdomen): Hyperactive bowel sounds, no abd tenderness Neurologic: CN 2-12 intact. 5/5 strength in the upper extremities bilaterally, 4+/5 in the RLE and 4-/5 in the LLE. Patellar and achilles reflexes 2+ bilat. Psychiatric: Occasionally tearful when talking about his 's and his depression. Results & Data Vital Signs (Past 12 Hours) Vital Signs Temp Pulse Pulse Pulse Resp BP Pulse Ox 12/11/18 11:26 36.8 C 58 L 18 168/74 H 95 12/11/18 09:00 60 12/11/18 07:48 36.7 C 61 18 153/69 H 96 12/11/18 06:15 66 12/11/18 04:14 36.9 C 59 L 17 154/69 H 96 12/11/18 03:00 36.8 C 64 14 127/71 96 12/11/18 02:04 67 20 135/70 96
[2018-12-11] MEDS ORDERED: PROPOFOL IV EMULSION 10 MG/ML 20 ML VIAL IV ONE (15:50)
[2018-12-11] MEDS ORDERED: LIDOCAINE HCL 2% 2 ML VIAL/AMP(20MG/ML) INFIL ONE (15:50)
--- NOTE | 2018-12-11 16:02 | GI REPORT ---
Patient Name: Lukas Monge Procedure Date: 12/11/2018 3:45 PM Date of : 1935 Admit Type: Inpatient Age: 83 Gender: Male Attending MD: Nicolás Medina DO Procedure: Upper GI endoscopy Providers: Nicolás Medina DO Referring MD: Trevor Vigil Indications: Acute post hemorrhagic anemia Medicines: Monitored Anesthesia Care Complications: No immediate complications. Estimated Blood Loss: Estimated blood loss: none. Procedure: Pre-Anesthesia Assessment: - Prior to the procedure, a History and Physical was performed, and patient medications and allergies were reviewed. The patient's tolerance of previous anesthesia was also reviewed. The risks and benefits of the procedure and the sedation options and risks were discussed with the patient. All questions were answered, and informed consent was obtained. Prior Anticoagulants: The patient has taken aspirin, last dose was 2 days prior to procedure. ASA Grade Assessment: III - A patient with severe systemic disease. After reviewing the risks and benefits, the patient was deemed in satisfactory condition to undergo the procedure. After obtaining informed consent, the endoscope was passed under direct vision. Throughout the procedure, the patient's blood pressure, pulse, and oxygen saturations were monitored continuously. The Endoscope was introduced through the mouth, and advanced to the second part of duodenum. The upper GI endoscopy was accomplished without difficulty. The patient tolerated the procedure well. Findings: The esophagus was normal. Two non-bleeding cratered gastric ulcers with no stigmata of bleeding were found in the gastric antrum. The largest lesion was 20 mm in largest dimension. Biopsies were taken with a cold forceps for Helicobacter pylori testing. The examined duodenum was normal. Impression: - Normal esophagus. - Non-bleeding gastric ulcers with no stigmata of bleeding. Biopsied. - Normal examined duodenum. Recommendation: - Return patient to [facility] for [facility] care. - Clear liquid diet. - Use Protonix (pantoprazole) 40 mg PO BID, OK to stop PPI gtt. - Await pathology results. Nicolás Medina DO 12/11/2018 4:01:41 PM This report has been signed electronically. Note Initiated On: 12/11/2018 3:45 PM Number of Addenda: 0 I attest to the content of the Intraoperative Record and orders documented therein, exceptions below {[id number]}
--- NOTE | 2018-12-11 16:29 | Anesthesiology Progress Note ---
Date of Service December 11, 2018 Anesthesia Post Procedure Vital Signs Vital Signs: Temp Pulse Pulse Pulse Resp BP BP 12/11/18 16:16 66 18 171/77 H 12/11/18 16:01 36.6 C 78 16 173/78 H 12/11/18 16:00 96 H 12/11/18 15:34 36.7 C 68 18 166/75 H 12/11/18 15:32 36.5 C 80 18 116/70 12/11/18 15:05 36.5 C 88 18 122/68 12/11/18 11:26 36.8 C 58 L 18 168/74 H 12/11/18 09:00 60 12/11/18 07:48 36.7 C 61 18 153/69 H 12/11/18 06:15 66 12/11/18 04:14 36.9 C 59 L 17 154/69 H 12/11/18 03:00 36.8 C 64 14 127/71 12/11/18 02:04 67 20 135/70 12/11/18 00:49 68 20 131/65 12/10/18 23:17 81 20 92/54 L 12/10/18 22:00 68 125 H 17 118/60 118/60 12/10/18 21:30 73 15 111/61 12/10/18 21:00 76 16 124/68 12/10/18 20:36 79 20 138/74 12/10/18 20:30 77 16 138/74 12/10/18 20:00 81 15 116/56 L 12/10/18 19:30 79 15 110/62 12/10/18 19:08 36.7 C 80 17 138/66 12/10/18 19:04 80 15 138/66 Pulse Ox 12/11/18 16:16 96 12/11/18 16:01 97 12/11/18 16:00 12/11/18 15:34 12/11/18 15:32 94 12/11/18 15:05 94 12/11/18 11:26 95 12/11/18 09:00 12/11/18 07:48 96 12/11/18 06:15 12/11/18 04:14 96 12/11/18 03:00 96 12/11/18 02:04 96 12/11/18 00:49 96 12/10/18 23:17 96 12/10/18 22:00 96 12/10/18 21:30 94 12/10/18 21:00 95 12/10/18 20:36 95 12/10/18 20:30 96 12/10/18 20:00 94 12/10/18 19:30 96 12/10/18 19:08 96 12/10/18 19:04 95 Transfer of Care Handoff Completed per policy Notes Mental Status: alert / awake / arousable and participated in evaluation Nausea / Vomiting: adequately controlled Pain: adequately controlled Airway Patency, RR, SpO2: stable & adequate BP & HR: stable & adequate Hydration State: stable & adequate Anesthetic Complications: no major complications apparent and Pt Satisfied with anesthetic care
[2018-12-11] MEDS: ACETAMINOPHEN 500 MG TAB PO PRN (17:49)
--- NOTE | 2018-12-11 18:42 | Hospitalist Progress Note ---
Date of Service December 11, 2018 Subjective this not is strictly for bureaucratic (coding) purposes. for actual clinical information, please refer to note done by myself and S Jaime MS3 same date. thank you Results & Data Vital Signs (Past 12 Hours) Vital Signs Temp Pulse Pulse Resp BP Pulse Ox 12/11/18 17:55 98.2 F 82 18 120/68 96 12/11/18 16:31 69 18 179/84 H 95 12/11/18 16:16 66 18 171/77 H 96 12/11/18 16:01 97.9 F 78 16 173/78 H 97 12/11/18 16:00 96 H 12/11/18 15:34 98.1 F 68 18 166/75 H 12/11/18 15:32 97.7 F 80 18 116/70 94 12/11/18 15:05 97.7 F 88 18 122/68 94 12/11/18 11:26 98.2 F 58 L 18 168/74 H 95 12/11/18 09:00 60 12/11/18 07:48 98.1 F 61 18 153/69 H 96 PG Care Time/CCT Total # of Minutes Spent Total Time Spent with Patient: Total time spent is greater than 50% in coordination of care (as documented) at patient's floor/unit and/or counseling patient:
[2018-12-11 18:57] LABS: Hematocrit (blood only) 29.4 % (42-52); Hemoglobin 9.8 g/dL (14.0-18.0)
[2018-12-11] MEDS: PANTOprazole 40 MG TAB PO SCH (20:40)
[2018-12-12] MEDS: cefTRIAXone SODIUM 1,000 MG in DEXTROSE 5% 50 ML IV SCH (02:21)
[2018-12-12] MEDS: LACTATED RINGER'S 1,000 ML IV SCH ×2 (06:25→13:53)
[2018-12-12 06:40] LABS: Hematocrit (blood only) 29.8 % (42-52); Hemoglobin 9.9 g/dL (14.0-18.0); Mean Corpuscular Hemoglobin 31.7 pg (25-34); Mean Corpuscular Hgb Conc 33.2 g/dL (32-36); Mean Corpuscular Volume 95.5 fL (80-100); Mean Platelet Volume 9.1 fL (7.4-10.4); Platelet Count 232 K/uL (130-400); RDW Coefficient of Variation 13.5 % (11.5-14.5); RDW Standard Deviation 46.6 fL (36.4-46.3); Red Blood Count 3.12 M/uL (4.7-6.1); White Blood Count 6.45 K/uL (4.8-10.8)
[2018-12-12 07:20] LABS: BUN Creatinine Ratio 19.4 (10-20); Calcium 8.5 mg/dl (8.5-10.1); Creatinine Clr Calc Pharmacy 69.1 ml/min; Est GFR (African American) 95.3; Est GFR (Non-African American) 82.2; Potassium 3.6 mmol/L (3.5-5.1)
[2018-12-12] MEDS: PANTOprazole 40 MG TAB PO SCH ×2 (08:57→19:40)
[2018-12-12] MEDS: FLUDROCORTISONE ACETATE 0.1 MG TAB PO SCH (08:57)
[2018-12-12] MEDS: CARBIDOPA/LEVODOPA 25/100MG TAB PO SCH ×3 (08:57→19:40)
--- NOTE | 2018-12-12 08:58 | Anesthesiology Progress Note ---
Date of Service December 12, 2018 Anesthesia Post Procedure Vital Signs Vital Signs: Temp Pulse Pulse Resp BP BP Pulse Ox 12/12/18 07:01 37 C 64 18 173/70 H 96 12/12/18 03:40 37.1 C 58 L 14 169/68 H 95 12/12/18 00:00 65 12/11/18 23:00 36.7 C 70 20 121/65 95 12/11/18 19:00 37.1 C 59 L 20 156/72 H 95 12/11/18 17:55 36.8 C 82 18 120/68 96 12/11/18 16:31 69 18 179/84 H 95 12/11/18 16:16 66 18 171/77 H 96 12/11/18 16:01 36.6 C 78 16 173/78 H 97 12/11/18 16:00 96 H 12/11/18 15:34 36.7 C 68 18 166/75 H 12/11/18 15:32 36.5 C 80 18 116/70 94 12/11/18 15:05 36.5 C 88 18 122/68 94 12/11/18 11:26 36.8 C 58 L 18 168/74 H 95 12/11/18 09:00 60 Notes Mental Status: alert / awake / arousable and participated in evaluation Patient Amnestic to Procedure: Yes Nausea / Vomiting: adequately controlled Pain: adequately controlled Airway Patency, RR, SpO2: stable & adequate BP & HR: stable & adequate Hydration State: stable & adequate Anesthetic Complications: no major complications apparent and Pt Satisfied with anesthetic care
[2018-12-12] MEDS: ACETAMINOPHEN 500 MG TAB PO PRN (10:45)
--- NOTE | 2018-12-12 12:55 | Gastroenterology Progress Note ---
Date of Service December 12, 2018 Assessment & Plan (1) Acute blood loss anemia: (2) Gastric ulcer: 1. Continue Protonix 40 mg PO BID. 2. Avoid NSAIDs. 3. Diet as tolerated. 4. Stable for discharge from GI perspective if cleared by primary team. Supervising Physician Co-Signing Physician Notes I personally evaluated the patient and agree with the findings as documented by HALIMA Roca Exam: abd: soft, nt, nd Subjective Patient denies any abdominal pain, melena, nausea or vomiting or other GI complaints. 1 day s/p EGD with findings of 2 clean based ulcers. H&H stable today at 9.9/29.8. PPI has been transitioned to Protonix 40 mg PO BID. Review of Systems Constitutional: no problem reported Respiratory: no dyspnea Cardiovascular: no chest pain Gastrointestinal: as per Subjective / HPI Physical Exam Constitutional: WD/WN, vitals as above Respiratory: normal respiratory effort, lungs clear to auscultation Cardiovascular: RRR, no murmur, no edema Gastrointestinal (Abdomen): normal bowel sounds, soft, nontender, no hepatosplenomegaly Psychiatric: A+Ox3, euthymic affect Results & Data Vital Signs (Past 12 Hours) Vital Signs Temp Pulse Pulse Resp BP BP Pulse Ox 12/12/18 11:18 37.3 C 61 18 152/72 H 96 12/12/18 09:00 70 12/12/18 07:01 37 C 64 18 173/70 H 96 12/12/18 03:40 37.1 C 58 L 14 169/68 H 95 PG Care Time/CCT Total # of Minutes Spent Total Time Spent with Patient: Total time spent is greater than 50% in coordination of care (as documented) at patient's floor/unit and/or counseling patient:
--- NOTE | 2018-12-12 17:47 | Family Medicine Progress Note ---
Date of Service December 12, 2018 Assessment & Plan (1) GI bleed: Mr. Monge is an 83-year-old male with a past medical history of Parkinson's disease with autonomic dysfunction, CVA, hypertension and GERD who presents to the emergency department due to feeling lightheaded, and having black stools. GI bleed -GI following -EGD showed nonbleeding gastric ulcers -Pantoprazole 40 mg PO BID Prerenal YANN -creatinine mildly elevated to 1.34 -IVF Urinary Tract Infection -UA positive for blood, nitrates, leukocyte esterase -Urine culture no growth -initially treated with Rocephin, discontinued Parkinson's Disease -follows with Dr. Rodriguez -continue home sinemet -continue home fludrocortisone for autonomic dysfunction Hx of CVA -occurred in May 2018, presumed to be secondary to small vessel disease -lacunar infarct within the right basal ganglia resulting in a mild left hemiparesis -held home aspirin given acute GI bleed -consider reinitiation of ASA in several weeks to months given risk of not being anticoagulated Urinary retention -patient found to have >600 ml urine in bladder, straight cathed -post void residual of 200 ml tonight -if patient continues to have high post void residuals will insert lara when discharged and have outpatient trial in a few days to a week Code status: DNR, confirmed with patient DVT Prophylaxis: Chemical contraindicated in the setting of acute GI bleed, SCDs ordered Disposition: Admit to med/surg with telemetry monitoring. Patient resides at the [facility]. Supervising Physician Co-Signing Physician Notes I personally examined the patient and verified all flynn points of history and exam, discussed case, and agree with decision making with Dr Reich. Feeling better. Stomach feeling better. No further bleeding. Unfortunately unable to void. Vitals noted, in general he is awake and alert pleasant no distress. HEENT normocephalic atraumatic mucous membranes moist. Breathing unlabored no accessory muscle use good effort. Skin shows no rashes no pallor or icterus. Upper GI bleed with acute blood loss anemia related to peptic ulcer disease probably brought on by aspirinnow stable. Hold aspirin for now, continue acid suppression. Urinary retentionlikely prostate related. Unfortunately he is likely to need a little bit of time to rest and recover from this, it seems that the thought of a Lara cath is a little bit overwhelming to him. Continue to follow. Cerebrovascular diseaseobviously have to hold the aspirin for now because of the GI bleeding, but will want to resume once safe. Subjective Mr. Monge discussed that his thinking had improved. he was feeling that he had improved over his hospital coarse. He had no questions or concerns for me today. 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 Review of Systems Constitutional: no fever and no chills Respiratory: + cough denies shortness of breath Cardiovascular: no chest pain and no palpitations Gastrointestinal: no nausea and no vomiting Genitourinary: + urinary frequency and + urinary hesitancy; no dysuria Physical Exam Constitutional: well developed and well nourished; no acute distress Respiratory: normal respiratory effort, lungs clear to auscultation Cardiovascular: Rate/Rhythm: regular rate and regular rhythm Extremities: + edema Gastrointestinal (Abdomen): normal bowel sounds, soft, nontender, no hepatosp lenomegaly Skin: no rashes, warm and dry Results & Data Vital Signs (Past 12 Hours) Vital Signs Temp Pulse Pulse Resp BP BP Pulse Ox 12/12/18 15:55 71 12/12/18 15:00 36.7 C 67 18 109/65 96 12/12/18 11:18 37.3 C 61 18 152/72 H 96 12/12/18 09:00 70 12/12/18 07:01 37 C 64 18 173/70 H 96 PG Care Time/CCT Total # of Minutes Spent Total Time Spent with Patient: Total time spent is greater than 50% in coordination of care (as documented) at patient's floor/unit and/or counseling patient: Resident Activity Tracking Resident Involvement: Resident Care Provided Care Provided: Adult Hospital Medicine (1) GI bleed GI bleed type/associated pathology: melena Qualified Code(s): K92.1 - Melena
[2018-12-13 05:50] LABS: Hematocrit (blood only) 29.4 % (42-52); Hemoglobin 9.8 g/dL (14.0-18.0); Mean Corpuscular Hemoglobin 31.8 pg (25-34); Mean Corpuscular Hgb Conc 33.3 g/dL (32-36); Mean Corpuscular Volume 95.5 fL (80-100); Platelet Count 268 K/uL (130-400); RDW Coefficient of Variation 13.4 % (11.5-14.5); RDW Standard Deviation 46.8 fL (36.4-46.3); Red Blood Count 3.08 M/uL (4.7-6.1); White Blood Count 6.53 K/uL (4.8-10.8)
[2018-12-13 06:20] LABS: BUN Creatinine Ratio 13.1 (10-20); Calcium 8.3 mg/dl (8.5-10.1); Creatinine Clr Calc Pharmacy 61.5 ml/min; Est GFR (Non-African American) 77.7; Potassium 3.6 mmol/L (3.5-5.1)
[2018-12-13] MEDS: CARBIDOPA/LEVODOPA 25/100MG TAB PO SCH ×3 (07:40→20:31)
[2018-12-13] MEDS: PANTOprazole 40 MG TAB PO SCH ×2 (07:40→20:31)
[2018-12-13] MEDS: FLUDROCORTISONE ACETATE 0.1 MG TAB PO SCH (07:40)
[2018-12-13] MEDS: ACETAMINOPHEN 500 MG TAB PO PRN (15:45)
--- NOTE | 2018-12-13 17:39 | Family Medicine Progress Note ---
Date of Service December 13, 2018 Assessment & Plan (1) GI bleed: Mr. Monge is an 83-year-old male with a past medical history of Parkinson's disease with autonomic dysfunction, CVA, hypertension and GERD who presents to the emergency department due to feeling lightheaded, and having black stool found to have gastric ulcers. GI bleed, likely due to ASA -GI following -patient was on ASA for stroke, held for now -EGD showed nonbleeding gastric ulcers, pathology: antritis no H. pylori -Pantoprazole 40 mg PO BID currently -consider tapering to 40 mg daily in the future outpatient -follow up with Vit. D levels if chronically on PPI Prerenal YANN (resolved) -creatinine mildly elevated to 1.34 -IVF given -returned to .91 today Concern for urinary Tract Infection -UA positive for blood, nitrates, leukocyte esterase -Urine culture no growth -initially treated with Rocephin, discontinued Parkinson's Disease -follows with Dr. Rodriguez -continue home Sinemet -continue home Fludrocortisone for autonomic dysfunction Hx. of CVA -occurred in May 2018, presumed to be secondary to small vessel disease -lacunar infarct within the right basal ganglia resulting in a mild left hemiparesis -held home aspirin given acute GI bleed -consider reinitiation of ASA in several weeks to months given risk of not being anticoagulated Urinary retention -likely 2/2 acute stress -patient found to have >600 ml urine in bladder, straight cathed -post void residual of 200 ml -lara was inserted, plan for discharge with lara and leg bag -nursing working with patient on instructions for use of catheter -follow up outpatient urinary trial in a few days to a week Case Management, OT, & PT -Case management: patient not comfortable going home - unable to reach daughter -OT rec: inpatient rehab -PT patient stated "too tired" unable to assess -continue discussion with patient the option of going to the [facility] as inpatient rehab [place] Code status: DNR, confirmed with patient DVT Prophylaxis: Chemical contraindicated in the setting of acute GI bleed, SCDs ordered Disposition: Admit to med/surg with telemetry monitoring. Patient resides at the [facility]. Supervising Physician Co-Signing Physician Notes I personally examined the patient and verified all flynn points of history and exam, discussed case, and agree with decision making with Dr Reich. Stomach doing okay. Seems overwhelmed at the thought of leaving the hospital with a Lara catheter in place. Vitals noted, in general he is awake and alert pleasant no distress. HEENT n ormocephalic atraumatic mucous membranes moist. Breathing unlabored no accessory muscle use good effort. Skin shows no rashes no pallor or icterus. Upper GI bleed with acute blood loss anemia related to peptic ulcer disease probably brought on by aspirinappears quite stable. Stable for discharge in this regard. Need to hold aspirin for the short-term but foreseeable future, once he is appearing to have healed over more obviously we will want to resume the aspirin as soon as possible. Continue Protonix twice daily. Urinary retentionlikely prostate related. He did ask that we hold off and see how he did yesterday into today, but unfortunately he is still having fairly acute and severe urinary retention. Lara catheter was placed. Despite extensive discussions with patient in regards to the subject, he seems quite overwhelmed with the idea of going home with a catheter in, even when her appears to only be for a short time. He seems to have little to no preceding LUTS, and that, combined with his Parkinson's related autonomic insufficiency provide reasons that finasteride and tamsulosin would likely not be warranted in his situation. Cerebrovascular diseasecontinue to hold the aspirin for now because of the GI bleeding, but will want to resume once safe (based on how he is doing an outpatient follow-up). Dispositionunclear. He appears physically at his baseline, although therapy would recommend SNF level, he has denied this in the past. GI bleeding is stable for discharge, and frequently elderly gentleman with prostate related urinary retention do need to go home with a Lara catheter in place for a short time, but given the seems to be overwhelming to him, does not clear what will end up being the best discharge plan for him. Subjective Mr. Monge was doing well today. He was unable to talk to his daughter. I had tried her the day before and today as well without any luck. We discussed how he was doing well, but he did not feel like he had things together to go home to his apartment. I also brought up that PT and OT would like to have him go to inpatient rehab or a halfway facility. When I brought up going somewhere before home he stated that he would prefer to go home and that his daughter was setting up extra help at home. Review of Systems Respiratory: denies shortness of breath Genitourinary: + urinary frequency and + urinary hesitancy; no dysuria Physical Exam Constitutional: well developed and well nourished; no acute distress Respiratory: normal respiratory effort, lungs clear to auscultation Cardiovascular: Rate/Rhythm: regular rate and regular rhythm Extremities: + edema Gastrointestinal (Abdomen): normal bowel sounds, soft, nontender, no hepatosplenomegaly Skin: no rashes, warm and dry Results & Data Vital Signs (Past 12 Hours) Vital Signs Temp Pulse Pulse Pulse Resp BP BP 12/13/18 15:32 37.2 C 93 H 16 166/58 H 12/13/18 15:25 36.8 C 71 64 18 161/78 H 12/13/18 15:24 71 18 161/78 H 12/13/18 08:15 62 12/13/18 06:00 36.8 C 68 18 194/77 H Pulse Ox 12/13/18 15:32 94 12/13/18 15:25 95 12/13/18 15:24 12/13/18 08:15 12/13/18 06:00 95 PG Care Time/CCT Total # of Minutes Spent Total Time Spent with Patient: Total time spent is greater than 50% in coordination of care (as documented) at patient's floor/unit and/or counseling patient: (1) GI bleed GI bleed type/associated pathology: melena Qualified Code(s): K92.1 - Melena
[2018-12-14] MEDS: ACETAMINOPHEN 500 MG TAB PO PRN ×2 (01:04→13:14)
[2018-12-14 06:59] LABS: Appearance Urine Clear (Clear); Bacteria Urine Automated Negative (Negative); Bilirubin Urine Negative (Negative); Blood Urine 2+ (Negative); Color Urine Yellow; Glucose Urine UA Negative (Negative); Ketones Urine Negative (Negative); Leukocyte Esterase Urine 2+ (Negative); Nitrite Urine Negative (Negative); Protein Urine Negative (Negative); RBC Urine Automated >30 /hpf (0-4); Specific Gravity Urine 1.021 (1.000-1.030); Urobilinogen Urine Negative (Negative); WBC Urine Automated >30 /hpf (0-5)
[2018-12-14 07:31] LABS: Hemoglobin 9.5 g/dL (14.0-18.0); Mean Corpuscular Hemoglobin 31.4 pg (25-34); Mean Corpuscular Hgb Conc 32.8 g/dL (32-36); Mean Corpuscular Volume 95.7 fL (80-100); Mean Platelet Volume 9.2 fL (7.4-10.4); Platelet Count 256 K/uL (130-400); RDW Coefficient of Variation 13.6 % (11.5-14.5); RDW Standard Deviation 47.5 fL (36.4-46.3); Red Blood Count 3.03 M/uL (4.7-6.1); White Blood Count 5.78 K/uL (4.8-10.8)
[2018-12-14 07:57] LABS: BUN Creatinine Ratio 16.7 (10-20); Calcium 8.3 mg/dl (8.5-10.1); Creatinine Clr Calc Pharmacy 65.8 ml/min; Est GFR (African American) 93.4; Est GFR (Non-African American) 80.6; Potassium 3.4 mmol/L (3.5-5.1)
[2018-12-14] MEDS: FLUDROCORTISONE ACETATE 0.1 MG TAB PO SCH (09:04)
[2018-12-14] MEDS: PANTOprazole 40 MG TAB PO SCH ×2 (09:05→20:10)
[2018-12-14] MEDS: CARBIDOPA/LEVODOPA 25/100MG TAB PO SCH ×3 (09:05→20:11)
[2018-12-14] MEDS ORDERED: POLYETHYLENE (MIRALAX) 17 GM PACK PO ONE (12:30)
[2018-12-14] MEDS ORDERED: POLYETHYLENE (MIRALAX) 17 GM PACK PO SCH (13:00)
[2018-12-15 06:00] LABS: Hemoglobin 9.6 g/dL (14.0-18.0); Mean Corpuscular Hemoglobin 31.5 pg (25-34); Mean Corpuscular Hgb Conc 33.1 g/dL (32-36); Mean Corpuscular Volume 95.1 fL (80-100); Mean Platelet Volume 9.1 fL (7.4-10.4); Platelet Count 246 K/uL (130-400); RDW Coefficient of Variation 13.4 % (11.5-14.5); RDW Standard Deviation 46.4 fL (36.4-46.3); Red Blood Count 3.05 M/uL (4.7-6.1); White Blood Count 5.87 K/uL (4.8-10.8)
[2018-12-15 06:30] LABS: BUN Creatinine Ratio 18.1 (10-20); Calcium 8.3 mg/dl (8.5-10.1); Creatinine Clr Calc Pharmacy 67.4 ml/min; Est GFR (African American) 94.3; Est GFR (Non-African American) 81.4; Potassium 3.6 mmol/L (3.5-5.1)
[2018-12-15] MEDS: CARBIDOPA/LEVODOPA 25/100MG TAB PO SCH ×3 (08:01→21:16)
[2018-12-15] MEDS: PANTOprazole 40 MG TAB PO SCH ×2 (08:02→21:17)
[2018-12-15] MEDS: FLUDROCORTISONE ACETATE 0.1 MG TAB PO SCH (08:02)
--- NOTE | 2018-12-15 11:33 | Family Medicine Progress Note ---
Date of Service December 14, 2018 Assessment & Plan (1) GI bleed: Mr. Monge is an 83-year-old male with a past medical history of Parkinson's disease with autonomic dysfunction, CVA, hypertension and GERD who presents to the emergency department due to feeling lightheaded, and having black stool found to have gastric ulcers. GI bleed, likely due to ASA -GI following -patient was on ASA for stroke, held for now -EGD showed nonbleeding gastric ulcers, pathology: antritis no H. pylori -Pantoprazole 40 mg PO BID currently -consider tapering to 40 mg daily in the future outpatient -follow up with Vit. D levels if chronically on PPI Prerenal YANN (resolved) -creatinine mildly elevated to 1.34 -IVF given -returned to normal level Concern for urinary Tract Infection -UA positive for blood, nitrates, leukocyte esterase -Urine culture no growth -initially treated with Rocephin, discontinued Parkinson's Disease -follows with Dr. Rodriguez -continue home Sinemet -continue home Fludrocortisone for autonomic dysfunction Hx. of CVA -occurred in May 2018, presumed to be secondary to small vessel disease -lacunar infarct within the right basal ganglia resulting in a mild left hemiparesis -held home aspirin given acute GI bleed -consider reinitiation of ASA in several weeks to months given risk of not being anticoagulated Urinary retention -likely 2/2 acute stress -patient found to have >600 ml urine in bladder, straight cathed -post void residual of 200 ml -lara was inserted, plan for discharge with lara and leg bag -nursing working with patient on instructions for use of catheter -follow up outpatient urinary trial in a few days to a week Case Management, OT, & PT -Case management: patient not comfortable going home - unable to reach daughter -OT rec: inpatient rehab -PT patient stated "too tired" unable to assess -continue discussion with patient the option of going to the [facility] as inpatient rehab [place] Code status: DNR, confirmed with patient DVT Prophylaxis: Chemical contraindicated in the setting of acute GI bleed, SCDs ordered Disposition: Admit to med/surg with telemetry monitoring. Patient resides at the [facility]. Supervising Physician Co-Signing Physician Notes I personally examined the patient and verified all flynn points of history and exam, discussed case, and agree with decision making with Dr Reich. still overwhelmed with idea of lara, but thinks w some nursing instruction he might be willing to try Vitals noted, in general he is awake and alert pleasant no distress. HEENT normocephalic atraumatic mucous membranes moist. Breathing unlabored no accessory muscle use good effort. Skin shows no rashes no pallor or icterus. Upper GI bleed with acute blood loss anemia related to peptic ulcer disease probably brought on by aspirinappears quite stable. off asa for now but will want to resume as soon as is safe. continue protonix Urinary retentionlikely prostate related. educate on lara management, hopefully home tomorrow Cerebrovascular diseasecontinue to hold the aspirin for now because of the GI bleeding, but will want to resume once safe (based on how he is doing an outpatient follow-up). no active symptoms. Dispositionunclear. He appears physically at his baseline, although therapy would recommend SNF level, he has denied this in the past. seems that his thoughts of learning better how to manage lara and then home tomorrow seems reasonable. he doesn't feel safe home now, and [facility]'t [facility]. Subjective Doing well today. He had no specific concerns today. He was going to try to talk to his daughter about the possibility of going [facility] the [facility] prior to going home to his apartment. Review of Systems Constitutional: no fever and no chills Cardiovascular: no chest pain and no palpitations Gastrointestinal: no nausea and no vomiting Physical Exam Constitutional: well developed and well nourished; no acute distress Respiratory: normal respiratory effort, lungs clear to auscultation Cardiovascular: Rate/Rhythm: regular rate and regular rhythm Extremities: + edema Gastrointestinal (Abdomen): normal bowel sounds, soft, nontender, no hepatospl enomegaly Skin: no rashes, warm and dry Results & Data Vital Signs (Past 12 Hours) Vital Signs Temp Pulse Resp BP Pulse Ox 12/15/18 07:45 36.9 C 60 16 173/77 H 94 PG Care Time/CCT Total # of Minutes Spent Total Time Spent with Patient: Total time spent is greater than 50% in coordination of care (as documented) at patient's floor/unit and/or counseling patient: Resident Activity Tracking Resident Involvement: Resident Care Provided Care Provided: Adult [facility] Medicine (1) GI bleed GI bleed type/associated pathology: melena Qualified Code(s): K92.1 - Melena
--- NOTE | 2018-12-15 13:21 | Family Medicine Progress Note ---
Date of Service December 15, 2018 Assessment & Plan (1) GI bleed: Mr. Monge is an 83-year-old male with a past medical history of Parkinson's disease with autonomic dysfunction, CVA, hypertension and GERD who presents to the emergency department due to feeling lightheaded, and having black stool found to have gastric ulcers. GI bleed, likely due to ASA -GI following -patient was on ASA for stroke, held for now -EGD showed nonbleeding gastric ulcers, pathology: antritis no H. pylori -H&H were stable and 9.6 & 29 today -Pantoprazole 40 mg PO BID currently -consider tapering to 40 mg daily in the future outpatient -follow up with Vit. D levels if chronically on PPI Prerenal YANN (resolved) -creatinine mildly elevated to 1.34 -IVF given -returned to 0.83 Concern for urinary Tract Infection -UA positive for blood, nitrates, leukocyte esterase -Urine culture no growth -initially treated with Rocephin, discontinued Parkinson's Disease -follows with Dr. Rodriguez -continue home Sinemet -continue home Fludrocortisone for autonomic dysfunction Hx. of CVA -occurred in May 2018, presumed to be secondary to small vessel disease -lacunar infarct within the right basal ganglia resulting in a mild left hemiparesis -held home aspirin given acute GI bleed -consider reinitiation of ASA in several weeks to months given risk of not being anticoagulated Urinary retention -likely 2/2 acute stress -patient found to have >600 ml urine in bladder, straight cathed -post void residual of 200 ml -lara was inserted, plan for discharge with lara and leg bag -nursing working with patient on instructions for use of catheter -follow up outpatient urinary trial in a few days to a week Case Management, OT, & PT -OT rec: inpatient rehab -PT patient stated "too tired" unable to assess -Patient going to the [facility] for inpatient rehab [place] Code status: DNR, confirmed with patient DVT Prophylaxis: Chemical contraindicated in the setting of acute GI bleed, SCDs ordered Disposition: Admit to med/surg with telemetry monitoring. Patient resides at the [facility]. Supervising Physician Co-Signing Physician Notes I personally examined the patient and verified all flynn points of history and exam, discussed case, and agree with decision making with Dr Reich. dtr talked him into going to the [facility] Vitals noted, in general he is awake and alert pleasant no distress. HEENT normocephalic atraumatic mucous membranes moist. Breathing unlabored no accessory muscle use good effort. Skin shows no rashes no pallor or icterus. Upper GI bleed with acute blood loss anemia related to peptic ulcer disease probably brought on by aspirinappears quite stable. off asa for now but will want to resume as soon as is safe. continue protonix probably indefinitely since he'll need to resume aspirin at some point Urinary retentionlikely prostate related. now planning on SNF [facility] tomorrow. Cerebrovascular diseasecontinue to hold the aspirin for now because of the GI bleeding, but will want to resume once safe (based on how he is doing an outpatient follow-up). no active symptoms during hospital stay. Dispositionfor snf tomorrow once they're able to take him Subjective Mr. Monge is doing well this morning. He mentioned he was having some fogginess. He has had fogginess like this in the past, ever since he had a stroke. He had talked to his daughter and he has agreed to go [facility] the [facility] prior to returning to his apartment. Review of Systems Constitutional: no fever and no chills Respiratory: no cough denies sputum production and shortness of breath Cardiovascular: no chest pain and no palpitations Gastrointestinal: no abdominal pain, no nausea and no vomiting Physical Exam Constitutional: well developed and well nourished; no acute distress Respiratory: normal respiratory effort, lungs clear to auscultation Cardiovascular: Rate/Rhythm: regular rate and regular rhythm Extremities: + edema Gastrointestinal (Abdomen): normal bowel sounds, soft, nontender, no hepatosplenomegaly Skin: no rashes, warm and dry Results & Data Vital Signs (Past 12 Hours) Vital Signs Temp Pulse Resp BP Pulse Ox 12/15/18 07:45 36.9 C 60 16 173/77 H 94 PG Care Time/CCT Total # of Minutes Spent Total Time Spent with Patient: Total time spent is greater than 50% in coordination of care (as documented) at patient's floor/unit and/or counseling patient: Resident Activity Tracking Resident Involvement: Resident Care Provided Care Provided: Adult Hospital Medicine (1) GI bleed GI bleed type/associated pathology: melena Qualified Code(s): K92.1 - Nayeli
[2018-12-15] MEDS: ACETAMINOPHEN 500 MG TAB PO PRN (14:04)
[2018-12-15] MEDS ORDERED: CALCIUM CARBONATE 500 MG CHEWABLE TAB PO PRN ×2 (18:37→20:30)
[2018-12-16 06:32] LABS: Hematocrit (blood only) 29.5 % (42-52); Hemoglobin 9.9 g/dL (14.0-18.0)
--- NOTE | 2018-12-16 07:51 | Discharge Summary ---
Date of Service December 17, 2018 Admission HPI Per Admitting Provider Mr. Monge is an 83-year-old male with a past medical history of Parkinson's disease with autonomic dysfunction, CVA, hypertension and GERD who presents to the emergency department due to feeling lightheaded, and having black stools. Mr. Monge notes that he typically feels lightheaded, since he was diagnosed with his stroke, however it is worse than usual. He endorses diarrhea that began yesterday, and states that he has episodes almost every hour. He notes that his stool is black. He denies abdominal pain, fever, or chills. He states that over the past 24 hours, he has felt "foggy," and unable to think straight. He denies chest pain or shortness of breath. He endorses dysuria, but denies frequency, hematuria, or urgency. He reports that his last colonoscopy was 7 years ago. He states that this was normal. He takes aspirin daily, but no other blood thinners. In the past, he has used Aleve intermittently for his arthritic pain. Admission Exam Per Admitting Provider Constitutional: WD/WN, vitals as above cooperative and comfortable Eyes: PERRL, conjunctivae normal, anicteric sclerae ENMT: external ear and nose normal, oropharynx normal Respiratory: normal respiratory effort, lungs clear to auscultation Cardiovascular: RRR, no murmur, no edema Gastrointestinal (Abdomen): Inspection/Auscultation: abdomen normal to inspection; abdomen not distended Percussion/Palpation: abdomen soft; abdomen nontender, no guarding and abdomen not rigid Skin: no rashes, warm and dry Neurologic: moves all extremities and awake Slow to respond to questions and initiate movement Psychiatric: A+Ox3, euthymic affect Principal Diagnosis Gastrointestinal bleed Discharge Exam Constitutional: WD/WN, vitals as above; cooperative and comfortable Eyes: PERRL, conjunctivae normal, anicteric sclerae ENMT: external ear and nose normal, oropharynx normal Respiratory: normal respiratory effort, lungs clear to auscultation in all lung brown. No wheezes, rales or rhonchi Cardiovascular: RRR, s1 and s2 appreciated. no murmur, rub or gallop; no LE edema Skin: no rashes, warm and dry Neurologic: moves all extremities and awake; Slow to respond to questions and initiate movement Psychiatric: A+Ox3, flat affect Genitourinary: Salter catheter in place draining dipti colored fluid; no visible clots Discharge Data Allergies Allergy/AdvReac Type Severity Reaction Status Date / Time carbidopa [From Sinemet] AdvReac Gastrointestinal Verified 12/11/18 03:05 Upset codeine AdvReac NAUSEA Verified 12/10/18 19:41 levodopa [From Sinemet] AdvReac Gastrointestinal Verified 12/11/18 03:05 Upset Consultations 12/10/18 22:42 ED Decision to Admit Stat 12/11/18 02:34 Consult Gastroenterology Routine 12/12/18 12:19 Consult Case Management - Discharge Planning Routine Procedures Performed Operation Date: 12/11/18 09:15 Actual Procedures p EGD Biopsy Cytology - Nicolás Chand Case, DO Hospital Course (1) GI bleed: Mr. Monge is an 83-year-old male with a PMHx of Parkinson's disease with autonomic dysfunction who was admitted to [facility] on 12/11/18 to 12/17/18 for lightheadedness and black stools secondary to a gastrointestinal bleed. GI bleed Two non-bleeding gastric ulcers were visualized on EGD, which were the likely source of the GI bleed. The episodic bleeding was likely provoked by daily ASA use (patient has history of CVA, using ASA for future stroke prevention). Pathology report of gastric ulcers returned as follows: antritis, no H. pylori. Daily ASA was held throughout hospital stay. H&H were stable throughout hospitalization; at 9.9 & 29.5 on day of discharge. Patient was started on Protonix 40 mg PO BID. Outpatient items to do: Consider tapering Protonix to 40mg, PO, once daily after 4-8 weeks. Discuss reinitiation of daily ASA therapy for stroke prevention. Consider monitoring Vitamin D levels with chronic PPI use. History of CVA Occurred in May 2018, presumed to be secondary to small vessel disease. Lacunar infarct within the right basal ganglia resulting in a mild left hemiparesis. Outpatient items to do: consider reinitiation of ASA in several weeks to months given risk of CVA Urinary retention While in the hospital, Mr. Monge developed urinary retention, thought to be secondary to physiologic stress of illness/hospitalization in the setting of a chronically enlarged prostate gland. Straight catheterization removed over 600ml of urine from the bladder. High post-void residual volumes >200ml prompted Salter placement. Initially there was some concern for a UTI, as the UA was positive for blood, nitrates, leukocyte esterase. He was treated with one dose of Rocephin, but this was discontinued when culture showed no growth. Patient was discharged with Salter in place and leg bag. Patient's Salter will be cared for during inpatient rehab stay at the [facility]. Outpatient items to do: Remove Salter and preform a follow up urinary trial in several days Total Time Total Time Spent Total Time Spent (In Minutes): see attending attestation Discharge Plan Discharge Items Patient Disposition: Transfer Alf Fac Reason For Visit: GI BLEED,WEAKNESS,UTI Discharge Diagnosis: Resolved GI bleed urinary retention Condition on Discharge: Good Activity: Per Instructions section Non-emergency contact: Primary Care Provider Call non-emergency contact if: your symptoms worsen Follow-up/Referrals: Nithin Feliciano MD [Primary Care Provider] - Diet: Regular Fluids: 1800ml (7 cups) Addtl Attending Provider Instructions: Stomach bleed -Fortunately the bleeding stopped on its own. During the upper endoscopy they noticed two ulcers that were likely the cause of the bleed. The bleed was caused by the Aspirin that you were taking for your stroke. You will need to stop the Aspirin for the time being (see below). -We monitored your bleeding by looking at your hemoglobin while you were in the hospital, which is a protein that carries oxygen in your body. The level of hemoglobin was stable and at a normal level for the last few days of the hospitalization. -The dizziness was likely due to the low volume of blood in your body and had improved over your hospital course. -To treat the stomach bleed you will be on Protonics 40 mg twice a day in the initial period and may be decreased to once a day in the future. You will likely be on this medication forever. This medication suppressed the acid in your stomach and may require that you have your Vitamin D level checked in the futur e. -At home you will need to avoid drinking alcohol as we discussed since it will aggravate your stomach. -Warnings signs include any bloody or black stools, lightheadedness, or dizziness. If you are noticing any warning signs it will be important to call or come in to be evaluated. Urine retention -When we evaluated the volume of urine in your bladder it was noticed that you had a high value. Initially we used a catheter to remove the urine from your bladder. We continued to monitor the retention of urine and this did not resolve while you were in the hospital. We think that this is likely a stress response that increases the squeeze of the muscles necessary for urination. -You will need a catheter and a leg bag for urine retention when leaving the hospital. -You will need to follow up with you primary care provider to further evaluate the cause of your urine retention. It is likely that an enlarged prostate is playing some role in the urine retention. You may start a medication when outside of the hospital for urine retention. -When visiting with your primary care doctor next week we will trial you without your urinary catheter to ensure that you can urinate without difficulty at home. Stroke -Since you had a stroke you were put on Aspirin which keep your platelets from binding. The stomach bleed was likely caused by Aspirin which is why we stopped Aspirin. You need to start taking Aspirin again in the near future. The period of time will be between a few weeks to a few months until restarting aspirin. Follow up with your PCP: Dr. Feliciano next week. Pending Studies at Discharge: Yes Studies:: pathology of biopsy from stomach ulcers Stand-Alone Forms: [facility] Skilled Items Patient informed of condition?: Yes DNR: Yes Discharge Level of Care: Skilled Communicable Disease: No Discharge Prognosis: Stable Lines: None Urinary Catheter: Yes Medications and DC Order Prescriptions: Continued carbidopa-levodopa 25-100 mg tablet 0.5 tab PO TID Qty: 45 RF: 2 ergocalciferol (vitamin D2) [Vitamin D2] 50,000 unit capsule 50,000 units PO WK RF: 0 PreserVision AREDS [id number] Tablet 1 tab PO DAILY RF: 0 pantoprazole [Protonix] 40 mg Tablet,Delayed Release (Dr/Ec) 40 mg PO DAILY PRN (Reason: Acid Reflux) RF: 0 docusate sodium [Colace] 100 mg capsule 100 mg PO BID RF: 0 fludrocortisone 0.1 mg tablet 0.1 mg PO DAILY RF: 0 Discontinued aspirin 81 mg Tablet,Delayed Release (Dr/Ec) 81 mg PO DAILY RF: 0 acetaminophen 500 mg Tablet 500 mg PO Q6H PRN (Reason: Pain) RF: 0 Discharge Orders: Discharge Order (Routine); Ordered 12/17/18 Ordered By: Ai Dennison Admission Data Admit Date/Time: 12/12/18 18:51 Attending Provider: Usha Huitron Admit Provider: Eleazar Iniguez Primary Care Provider: Nithin Feliciano Other Providers: Otilio Lopez ; Nicolás Medina Other Interventions: Discharge Summary Assessment (RN) Last Done: 12/17/18 10:33 DC Date/Time DO NOT enter until pt leaves facility: 12/17/18 11:16 Supervising Physician Co-Signing Physician Notes Patient seen and examined with PGY-1 Dr. Dennison and PGY-3 Dr. Acosta. Agree with history, exam findings, assessment and plan of care as outlined by Dr. Dennison. In brief, Mr Monge is an 83 year old male with hx of PD with autonomic dysfunction admitted for upper GI bleed secondary to gastric ulcer seen on EGD. Doing well. 1. Upper GI bleed due to gastric ulcers. ASA on hold. Protonix 40mg BID. Hgb stable. 2. Abnormal UA (blood, nitrites, LE) and urinary retention. Completed ce ftriaxone. Salter ok to stay, but plan to remove in a few days. 3. PD with autonomic dysfunction. Stable. Continue Sinemet, fludrocortisone. 4. Hx of CVA in May 2018. ASA on hold, but will need to restart in a few weeks. Dispo: medically stable for transfer to [facility] today. Resident Activity Tracking Resident Involvement: Resident Care Provided Care Provided: Adult Hospital Medicine
[2018-12-16] MEDS: CARBIDOPA/LEVODOPA 25/100MG TAB PO SCH ×3 (09:12→20:34)
[2018-12-16] MEDS: PANTOprazole 40 MG TAB PO SCH ×2 (09:12→20:34)
[2018-12-16] MEDS: FLUDROCORTISONE ACETATE 0.1 MG TAB PO SCH (09:13)
[2018-12-16] MEDS: ACETAMINOPHEN 500 MG TAB PO PRN ×2 (09:33→16:19)
--- NOTE | 2018-12-16 16:40 | Family Medicine Progress Note ---
Date of Service December 16, 2018 Assessment & Plan (1) GI bleed: Mr. Monge is an 83-year-old male with a PMHx of Parkinson's disease with autonomic dysfunction who was admitted to [facility] on 12/11/18 for lightheadedness and black stools secondary to a gastrointestinal b leed. GI bleed Two non-bleeding gastric ulcers were visualized on EGD, which were the likely source of the GI bleed. The episodic bleeding was likely provoked by daily ASA use (patient has history of CVA, using ASA for future stroke prevention). Pathology report of gastric ulcers returned as follows: antritis, no H. pylori. Daily ASA was held throughout hospital stay. H&H have been stable throughout hospitalization; at 9.9 & 29.5 today. Patient was started on Protonix 40 mg PO BID. He will likely stay on the BID dosing for 4-8 weeks before taping to home dose of 40mg daily. History of CVA Occurred in May 2018, presumed to be secondary to small vessel disease. Lacunar infarct within the right basal ganglia resulting in a mild left he miparesis. We will continue to hold ASA while in the hospital but he should discuss restarting ASA for CVA prevention in the future with PCP. Urinary retention While in the hospital, Mr. Monge developed urinary retention, thought to be secondary to physiologic stress of illness/hospitalization in the setting of a chronically enlarged prostate gland. Straight catheterization removed over 600ml of urine from the bladder. High post-void residual volumes >200ml prompted Salter placement. Initially there was some concern for a UTI, as the UA was positive for blood, nitrates, leukocyte esterase. He was treated with one dose of Rocephin, but this was discontinued when culture showed no growth. Patient will be discharged with Salter in place and leg bag. Patient's Salter will be cared for during inpatient rehab stay at the [facility]. Parkinson's Disease -follows with Dr. Rodriguez -continue home Sinemet -continue home Fludrocortisone for autonomic dysfunction Case Management, OT, & PT -OT rec: inpatient rehab -PT patient stated "too tired" unable to assess -Patient was initially set to be discharged today to the [facility] (SNF attached to [place]) but insurance authorization was not obtained in time for the [facility] to accept him. D/c arranged for tomorrow AM 12/17/18. Code status: DNR, confirmed with patient DVT Prophylaxis: Chemical contraindicated in the setting of acute GI bleed, SCDs ordered Disposition: med/surg floor (2) Gastric ulcer: (3) DVT prophylaxis: (4) Autonomic dysfunction: (5) Parkinsons disease: (6) GERD (gastroesophageal reflux disease): (7) Cerebrovascular accident: (8) YANN (acute kidney injury): Supervising Physician Co-Signing Physician Notes Patient seen and examined with PGY-1 Dr. Dennison and PGY-3 Dr. Acosta. Agree with history, exam findings, assessment and plan of care as outlined by Dr. Dennison. In brief, Mr Monge is an 83 year old male with hx of PD with autonomic dysfunction admitted for upper GI bleed secondary to gastric ulcer seen on EGD. Doing well. No dizziness. Denies any further melena. Abdomen is soft and nontender. 1. Upper GI bleed due to gastric ulcers. ASA on hold. Protonix 40mg BID. Hgb stable 9.9. 2. Abnormal UA (blood, nitrites, LE) and urinary retention. Completed ceftriaxone. Salter ok to stay, but plan to remove in a few days. 3. PD with autonomic dysfunction. Stable. Continue Sinemet, fludrocortisone. 4. Hx of CVA in May 2018. ASA on hold, but will need to restart in a few weeks. Dispo: medically stable for transfer to [facility]. Received insurance auth, but too late in the day to transfer per [facility]. Will plan for transfer tomorrow once transport is arranged. Subjective No acute events overnight. Eating and drinking well. Urinating and stooling normally. Patients asks if medical personnel has communicated with his daughter regarding his care. Review of Systems Review of Systems: patient denies being in any discomfort Physical Exam Physical Exam: Constitutional: WD/WN, vitals as above; cooperative and comfortable Eyes: PERRL, conjunctivae normal, anicteric sclerae ENMT: external ear and nose normal, oropharynx normal Respiratory: normal respiratory effort, lungs clear to auscultation in all lung brown. No wheezes, rales or rhonchi Cardiovascular: RRR, s1 and s2 appreciated. no murmur, rub or gallop; no LE edema Skin: no rashes, warm and dry Neurologic: moves all extremities and awake; Slow to respond to questions and initiate movement Psychiatric: A+Ox3, flat affect Genitourinary: Salter catheter in place draining dipti colored fluid; no visible clots Results & Data Vital Signs (Past 12 Hours) Vital Signs Temp Pulse Resp BP Pulse Ox 12/16/18 15:30 36.8 C 81 18 130/84 92 12/16/18 07:27 37.1 C 61 16 166/75 H 94 Laboratory Results 12/16/18 Range/Units 06:01 Hgb 9.9 L (14.0-18.0) g/dL Hct 29.5 L (42-52) % PG Care Time/CCT Total # of Minutes Spent Total Time Spent with Patient: Total time spent is greater than 50% in coordination of care (as documented) at patient's floor/unit and/or counseling patient: Resident Activity Tracking Resident Involvement: Resident Care Provided Care Provided: Adult Hospital Medicine (1) GI bleed GI bleed type/associated pathology: melena Qualified Code(s): K92.1 - Melena (2) Cerebrovascular accident CVA mechanism: unspecified Qualified Code(s): I63.9 - Cerebral infarction, unspecified (3) GERD (gastroesophageal reflux disease) Esophagitis presence: esophagitis presence not specified Qualified Code(s): K21.9 - Gastro-esophageal reflux disease without esophagitis
[2018-12-17] MEDS: PANTOprazole 40 MG TAB PO SCH (08:17)
[2018-12-17] MEDS: FLUDROCORTISONE ACETATE 0.1 MG TAB PO SCH (08:17)
[2018-12-17] MEDS: CARBIDOPA/LEVODOPA 25/100MG TAB PO SCH (08:17)
[2018-12-17] MEDS: ACETAMINOPHEN 500 MG TAB PO PRN (08:21)
== END 2018-12-17 11:16 | DRG 813 ==
LOC: 2N 18:54 → ED 18:54 → SUATTDRO 12-11 00:43 → 2N 12-11 02:26 → SUATTDRO 12-12 18:51